=== PATIENT | female | born 1945 | race Hispanic/Latino ===

== ENCOUNTER → 2018-09-19 | Day surgery (SDC) | payer MEDICARE, OTHER ==
[~2018-09-19] MED LIST: ASPIR 8181 MG PO; ATORVASTATIN CA20 MG PO; CLOBETASOL PROP15 G1 TOP; COZAAR25 MG PO; FLUCONAZOLE100 MG PO; HUMALOG100 UNIT/3 SC; HYDROCORTISONE30 GM TOP; LANTUS SC; LEVOTHYROXINE175 MCG PO; LOSARTAN POTAS100 MG PO; METFORMIN HCL500 MG PO; MIDAZOLAM HCL 2 MG/2 ML VIAL ONE; NAPROXEN250 MG PO; NASONEX17 GM; NOVOLOG100 UNITS1 SC; OR PHACO EYE KIT ONE; PREOP PHACO EYE KIT ONE; RANITIDINE HCL150 MG PO; ZANTAC150 MG PO
--- OUTSIDE RECORDS SUMMARY | 2018-09-19 11:20 | XMS REPORT | Continuity of Care Document ---
Author Author [facility] Interface Address Unknown Phone Unavailable Problems Problem Status Onset Date Classification Date Reported Comments Source EVAL POV Active 07/10/2018 [facility] Z12.31 - ENCNTR SCREEN MAMMOGRAM FOR MA Active 05/26/2017 [facility] M79.604 - PAIN IN RIGHT LEG Active 01/14/2016 [facility] SCREENING Active 12/17/2015 [facility] M81.0 - AGE-RELATED OSTEOPOROSIS W/O C Active 12/09/2015 [facility] History of fall Resolved 12/09/2015 Problem 05/05/2018 [facility] UNK Active 02/17/2015 [facility] V10.05 Active 02/17/2015 [facility] 789.01 ABD PAIN Active 01/28/2015 [facility] OSTEOPOROSIS 733.00 Active 01/24/2015 [facility] Hypothyroidism<sup>2, 3</sup> Active 01/21/2015 Problem 05/05/2018 Data migrated from [employer] on 04/22/15. [facility] Hypothyroidism<sup>3, 4</sup> Active 01/21/2015 Problem 03/04/2018 Data migrated from [employer] on 04/22/15[facility] Osteoporosis<sup>5, 6</sup> Active 12/24/2014 Problem 05/05/2018 Data migrated from [employer] on 04/22/15. [facility] Osteoporosis<sup>6, 7</sup> Active 12/24/2014 Problem 03/04/2018 Data migrated from [employer] on 04/22/15. [facility]un, [facility] Obesity<sup>4</sup> Active 08/16/2014 Problem 05/05/2018 Data migrated from [employer] on 04/21/15. [facility] Obesity<sup>5</sup> Active 08/16/2014 Problem 03/04/2018 Data migrated from [employer] on 04/21/15. [facility] Discharge Diagnosis: insect bite-infected, abscess back 02/07/2014 02/09/2014 [facility] BACK PAIN Active 02/07/2014 [facility] 518.89 Active 01/23/2014 [facility] V76.10 Active 12/28/2013 [facility] Unsteady gait<sup>7</sup> Active 12/19/2013 Problem 05/05/2018 Data migrated from [employer] on 04/21/15. [facility] Unsteady gait<sup>8</sup> Active 12/19/2013 Problem 03/04/2018 Data migrated from [employer] on 04/21/15. [facility] LOW SUGAR Active 11/30/2013 [facility] Chronic kidney disease stage 3<sup>1</sup> Active 09/19/2013 Problem 03/04/2018 Data migrated from [employer] on 04/21/15. [facility] History of malignant neoplasm of colon<sup>1</sup> Resolved 06/06/2013 Problem 05/05/2018 Data migrated from [employer] on 04/21/15. [facility] History of malignant neoplasm of colon<sup>2</sup> Resolved 06/06/2013 Problem 03/04/2018 Data migrated from [employer] on 04/21/15. [facility] Varicose veins of lower extremity<sup>8</sup> Active 05/16/2013 Problem 05/05/2018 Data migrated from [employer] on 04/21/15. [facility] Varicose veins of lower extremity<sup>9</sup> Active 05/16/2013 Problem 03/04/2018 Data migrated from [employer] on 04/21/15. [facility] ROUTINE/MENOPAUSAL Active 02/01/2013 [facility] 794.31ABNORMAL EKG DR PULIDO WILL READ* LEXISCAN Active 07/21/2012 [facility] CECAL MASS Active 06/27/2012 [facility] ABDOMINAL PAIN Active 05/15/2012 [facility] ABD PAIN 787.07/793.4/285.9 Active 05/15/2012 [facility] ABD PAIN, CHEST PAIN, SHORTNESS OF BREATH Active 03/27/2012 [facility] OTHER Active 03/06/2012 [facility] Diabetes mellitus Active Problem 03/09/2015 [facility] Ex-smoker Active Problem 03/09/2015 [facility] Hypertension Active Problem 03/09/2015 [facility] SOB - Shortness of breath Active Problem 03/09/2015 [facility] Ex-smoker Active Problem 02/18/2013 [facility] Hypertension Active Problem 02/18/2013 [facility] SOB - Shortness of breath Active Problem 02/18/2013 [facility] Back pain Active Problem 03/09/2015 [facility] Cancer of colon<sup>1</sup> Active Problem 03/09/2015 1Previous history [facility] Neuropathy Active Problem 03/09/2015 [facility] Acute constipation Resolved Problem 06/23/2017 [facility] Screening for breast cancer Resolved Problem 06/23/2017 [facility] Ángela vaginitis Active Problem 06/23/2017 [facility] Leg cramps Active Problem 06/23/2017 [facility] Daytime somnolence Active Problem 06/23/2017 [facility] Hypercholesterolemia Active Problem 06/23/2017 [facility] Medicare annual wellness visit, subsequent Resolved Problem 06/23/2017 [facility] Pain of left leg Active Problem 12/18/2015 [facility] 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, uncontrolled, without macular edema, with retinopathy Active Problem 06/23/2017 [facility] Anemia Active Problem 05/05/2018 [facility] Benign hypertension with chronic kidney disease, stage III Active Problem 05/05/2018 [facility] Yeast vaginitis Active Problem 05/05/2018 [facility] Cataract Active Problem 05/05/2018 [facility] termination clerk current use of insulin Active Problem 05/05/2018 [facility] Hyperlipidemia Active Problem 05/05/2018 [facility] Left knee pain Active Problem 05/05/2018 [facility] Pulmonary nodule Active Problem 05/05/2018 [facility] Non-compliant patient Active Problem 05/05/2018 [facility] Peripheral edema Active Problem 05/05/2018 [facility] Sleep apnea Active Problem 05/05/2018 [facility] Type 2 diabetes mellitus with polyneuropathy Active Problem 05/05/2018 [facility] Type 2 diabetes mellitus with stage 3 chronic kidney disease Active Problem 05/05/2018 [facility] [place], [facility] Type 2 diabetes mellitus with hyperglycemia Active Problem 05/05/2018 [facility] Vitamin D deficiency Active Problem 05/05/2018 [facility] Bilateral cataracts Active Problem 06/23/2017 [facility] Chronic folliculitis Resolved Problem 06/23/2017 [facility] Pain and swelling of right lower leg Active Problem 06/23/2017 [facility] ABDMNAL PAIN UNSPCF SITE Active [facility] CHEST PAIN NOS Active [facility] SHORTNESS OF BREATH Active [facility] PNEUMONIA Active [facility] PNEUMONIA, ORGANISM NOS Active [facility] ABDMNAL PAIN GENERALIZED Active [facility] NONSP ABN FIND-GI TRACT Active [facility] ANEMIA NOS Active [facility] PERITONEAL DISORDER NEC Active [facility] PARAPLEGIA, UNSPECIFIED Active [facility] Medications Medication Details Route Status Patient Instructions Ordering Provider Order Date Source levothyroxine 175 mcg (0.175 mg) oral tablet 175 microgram=1 tab, PO, Daily, # 90 tab, 1 Refill(s), [facility] Active 05/01/2018 [facility] Metformin hydrochloride 1000 MG Oral Tablet 1,000 mg=1 tab, PO, BID, X 90 day, # 180 tab, 0 Refill(s), Pharmacy: [facility]/pharmacy #[id number] Active 04/27/2018 [facility] Insulin Glargine 100 UNT/ML Injectable Solution 75 unit, SUB-Q, QAM, # 3 mL, 5 Refill(s), Pharmacy: [facility]/pharmacy #[id number] Active 04/27/2018 [facility] atorvastatin 20 mg oral tablet See Instructions, TAKE ONE TABLET BY MOUTH AT BEDTIME, # 90 tab, 0 Refill(s), Pharmacy: [facility]/pharmacy #[id number] Active 04/27/2018 [facility] losartan 100 mg oral tablet 100 mg=1 tab, PO, Daily, # 90 tab, 0 Refill(s), Pharmacy: [facility]/pharmacy #[id number] Active 04/27/2018 [facility] levothyroxine 175 mcg (0.175 mg) oral tablet 175 microgram=1 tab, PO, Daily, # 90 tab, 0 Refill(s), Pharmacy: [facility]/pharmacy #[id number] Active 04/27/2018 [facility] Ranitidine 150 MG Oral Tablet See Instructions, TAKE ONE TABLET BY MOUTH DAILY, # 90 tab, 0 Refill(s), Pharmacy: [facility]/pharmacy #[id number] Active 04/27/2018 [facility] Dexcom G4 [place] System with Share Continuous Blood Glucose Monitor 1 ea, MISC, ONCE, # 1 ea, Insulin dependent, Does not use insulin pump, Last DM eval date 03/28/18, 0 Refill(s) Active 03/28/2018 [facility] naproxen 500 mg oral tablet 500 mg=1 tab, PO, BID, with food, X 14 day, # 60 tab, 1 Refill(s), [facility] Active 03/28/2018 [facility] fluconazole 150 mg oral tablet 150 mg=1 tab, PO, ONCE, # 1 tab, 1 Refill(s), [facility] Active 03/28/2018 [facility] Hydrocortisone 25 MG/ML Topical Cream 1 appl, TOP, BID, X 14 day, # 30 gm, 2 Refill(s), [facility]acy: [facility] No Longer Active 01/25/2018 [facility] Metformin hydrochloride 1000 MG Oral Tablet 1,000 mg=1 tab, PO, BID, X 90 day, # 180 tab, 1 Refill(s), [facility] Active 12/27/2017 [facility] losartan 100 mg oral tablet 100 mg=1 tab, PO, Daily, # 90 tab, 1 Refill(s), [facility] Active 12/27/2017 [facility] 3 ML Insulin Lispro 100 UNT/ML Pen Injector [Humalog] 15 units, SUB-Q, BID-Meals, # 3 mL, 5 Refill(s), [facility] Active 12/27/2017 [facility] Insulin Glargine 100 UNT/ML Injectable Solution 75 unit, SUB-Q, QAM, # 3 mL, 5 Refill(s), [facility] Active 12/27/2017 [facility] Cane 1 ea, MISC, ONCE, dispense one 3 or 4 point cane, # 1 ea, 0 Refill(s) Active 12/27/2017 [facility] DME Prescription See Instructions, MISC, ONCE, dispense shower rail with suction, # 1 unit, 0 Refill(s) Active 12/27/2017 [facility] Bath Seat/Shower Seat Misc/Other 1 ea, MISC, ONCE, dispense one shower chair, # 1 unit, 0 Refill(s) Active 12/27/2017 [facility] Ranitidine 150 MG Oral Tablet See Instructions, TAKE ONE TABLET BY MOUTH DAILY, # 90 tab, 1 Refill(s), [facility] Active 11/09/2017 [facility] losartan 50 mg oral tablet 50 mg=1 tab, PO, Daily, # 30 tab, 0 Refill(s) Active 03/06/2015 [facility] Sodium Chloride 0.154 MEQ/ML Injectable Solution 1,000 mL, Rate: 25 ml/hr, Infuse over: 40 hr, Route: IV, Dosing Weight 82.386 kg, Total Volume: 1,000, Start date: 03/06/15 8:08:00, Duration: 30 day, Stop date: 04/05/15 8:07:00 Inactive 03/06/2015 [facility] 3 ML Insulin Lispro 100 UNT/ML Prefilled Syringe [Humalog] 20 unit, SUB-Q, BID, # 3 mL, 0 Refill(s) Active 02/26/2015 [facility] 3 ML insulin detemir 100 UNT/ML Prefilled Syringe [Levemir] 30 unit, SUB-Q, Bedtime, # 3 ml, 0 Refill(s) Active 02/26/2015 [facility] spironolactone 50 mg oral tablet 25 mg=0.5 tab, PO, BID, # 60 tab, 0 Refill(s) Active 02/26/2015 [facility] atorvastatin 20 mg oral tablet 20 mg=1 tab, PO, Bedtime, # 30 tab, 0 Refill(s) Active 02/26/2015 [facility] baclofen 10 mg oral tablet 10 mg=1 tab, PO, BID, # 90 tab, 0 Refill(s) Active 02/26/2015 [facility] Ranitidine 150 MG Oral Tablet 150 mg=1 tab, PO, Daily, # 60 tab, 0 Refill(s) Active 02/26/2015 [facility] levothyroxine 137 mcg (0.137 mg) oral tablet 137 microgram=1 tab, PO, Daily, # 30 tab, 0 Refill(s) Active 02/26/2015 [facility] Metformin hydrochloride 1000 MG Oral Tablet 1,000 mg=1 tab, PO, BID, # 30 tab, 0 Refill(s) Active 02/26/2015 [facility] losartan 50 mg oral tablet 50 mg=1 tab, PO, Daily, # 30 tab, 0 Refill(s) Active 02/26/2015 [facility] tramadol hydrochloride 50 MG Oral Tablet 50 mg=1 tab, PO, Q6H, PRN Pain, # 40 tab, 0 Refill(s) Active 02/26/2015 [facility] tramadol hydrochloride 50 MG Oral Tablet [Ultram] 1 - 2 tabs, PO, Q4-6H, as needed for pain, # 20 tab, 0 Refill(s) Active 02/07/2014 [facility] Mupirocin 0.02 MG/MG Topical Ointment [Bactroban] 1 appl, TOP, TID, # 15 gm, 0 Refill(s) Active 02/07/2014 [facility] Sulfamethoxazole 800 MG / Trimethoprim 160 MG Oral Tablet [Bactrim] 1 tab, PO, BID, # 20 tab, 0 Refill(s) Active 02/07/2014 [facility] Lidocaine Hydrochloride 10 MG/ML Injectable Solution 10 ml, Route: SUB-Q, Drug Form: INJ, Dosing Weight 81.818, kg, ONCE, STAT, Start date: 02/07/14 16:28:00, Stop date: 02/07/14 16:28:00Preservative free. (Same as: Xylocaine MPF) Inactive 02/07/2014 [facility] Levemir 10 unit, 0.1 mL, Route: SUB-Q, Drug form: INJ, QAM, Dosing Weight 88.636, kg, Start date: 08/04/12 9:00:00, Duration: 30 day, Stop date: 09/02/12 9:00:00 SUB-Q No Longer Active [place] 08/04/2012 [facility] levothyroxine 125 microgram, 1 tab, Route: PO, Drug form: TAB, Q630AM, Dosing Weight 88.636, kg, Start date: 08/04/12 6:30:00, Duration: 30 day, Stop date: 09/02/12 6:30:00 PO No Longer Active [place] 08/04/2012 [facility] Levemir 15 unit, 0.15 mL, Route: SUB-Q, Drug form: INJ, QPM, Dosing Weight 88.636, kg, Start date: 08/03/12 17:00:00, Duration: 30 day, Stop date: 09/01/12 17:00:00 SUB-Q No Longer Active [place] 08/03/2012 [facility] Vicodin 5/500 oral tablet 1 tab, PO, Q4H, PRN, 40 btl, for pain, Substitution Allowed, Maintenance, TAB PO Active [facility] 08/03/2012 [facility] losartan 25 mg, 1 tab, Route: PO, Drug form: TAB, Daily, Dosing Weight 88.636, kg, Start date: 08/02/12 11:00:00, Duration: 30 day, Stop date: 09/01/12 9:00:00 PO No Longer Active [place] 08/02/2012 [facility] Dilaudid 1 mg, 1 mL, Route: IV, Drug form: SOLN, Q1H, Dosing Weight 88.636, kg, PRN as needed for pain, Start date: 08/02/12 9:04:00, Duration: 30 day, Stop date: 09/01/12 9:03:00 IV No Longer Active [facility] 08/02/2012 [facility] W[place] 5/325 oral tablet 1 tab, Route: PO, Drug Form: TAB, Dosing Weight 88.636, kg, Q4H, PRN Pain, Start date: 08/02/12 9:03:00, Duration: 30 day, Stop date: 09/01/12 9:02:00 PO No Longer Active [facility] 08/02/2012 [facility] Levemir 10 unit, 0.1 mL, Route: SUB-Q, Drug form: INJ, Q12H, Dosing Weight 88.636, kg, Start date: 08/02/12 9:00:00, Duration: 30 day, Stop date: 08/31/12 21:00:00 SUB-Q No Longer Active [place] 08/02/2012 [facility] acetaminophen-hydrocodone 325 mg-5 mg oral tablet 1 tab, Route: PO, Drug Form: TAB, Q4H, PRN Pain, Start date: 08/01/12 19:19:00, Duration: 30 day, Stop date: 08/31/12 19:18:00 PO No Longer Active [facility] 08/02/2012 [facility] Dextrose 50% in Water IV 50 mL, Route: IVP, Start date: 08/01/12 10:27:00, Duration: 30 day, Stop date: 08/31/12 10:26:00, PRN Blood Glucose Results IVP No Longer Active [facility] 08/01/2012 [facility] glucagon 1 mg, Route: IM, Drug form: PDR/INJ, PRN, PRN Blood Glucose Results, Start date: 08/01/12 10:27:00, Duration: 30 day, Stop date: 08/31/12 10:26:00 IM No Longer Active [facility] 08/01/2012 [facility] NovoLog FlexPen 12 unit, 0.12 mL, Route: SUB-Q, Drug form: SOLN, Before Meals & Bedtime, PRN Blood Glucose Results, Start date: 08/01/12 10:27:00, Duration: 30 day, Stop date: 08/31/12 10:26:00 SUB-Q No Longer Active [facility] 08/01/2012 [facility] NovoLog FlexPen 8 unit, 0.08 mL, Route: SUB-Q, Drug form: SOLN, Before Meals & Bedtime, PRN Blood Glucose Results, Start date: 08/01/12 10:26:00, Duration: 30 day, Stop date: 08/31/12 10:25:00 SUB-Q No Longer Active [facility] 08/01/2012 [facility] Entereg 12 mg, 1 cap, Route: PO, Drug form: CAP, BID, Dosing Weight 88.636, kg, Start date: 08/01/12 9:00:00, Duration: 14 doses or times, Stop date: 08/07/12 17:00:00 [facility] Lovenox 40 mg, 0.4 mL, Route: SUB-Q, Drug form: INJ, [id number], Dosing Weight 88.636, kg, Start date: 08/01/12 3:00:00, Duration: 30 day, Stop date: 08/30/12 3:00:00 [facility]-Q [facility] famotidine 20 mg, 2 mL, Route: IVP, Drug form: INJ, Q12H, Dosing Weight 88.636, kg, Start date: 07/31/12 21:00:00, Duration: 30 day, Stop date: 08/30/12 9:00:00 IVP No Longer Active [facility] 08/01/2012 [facility] Lactated Ringers Injection IV 1000 mL 1,000 mL, Rate: 50 ml/hr, Infuse over: 20 hr, Route: IV, Dosing Weight 88.636 kg, Total Volume: 1,000, Start date: 07/31/12 15:17:00, Duration: 30 day, Stop date: 08/30/12 15:16:00 IV No Longer Active [facility] 07/31/2012 [facility] naloxone 0.04 mg, Route: IVP, Q2MIN, Dosing Weight 88.636, kg, PRN Narcotic Reversal, Start date: 07/31/12 15:17:00, Duration: 8 doses or times, Stop date: Limited # of times IVP No Longer Active [facility] 07/31/2012 [facility] flumazenil 0.2 mg, 2 mL, Route: IVP, Drug form: INJ, PRN, Dosing Weight 88.636, kg, PRN Benzodiazepine Reversal, Initial dose, Start date: 07/31/12 15:17:00, Duration: 30 day, Stop date: 08/30/12 15:16:00 IVP No Longer Active [facility] 07/31/2012 [facility] hydrALAZINE 5 mg, 0.25 mL, Route: IVP, Drug form: INJ, Q5Min, Dosing Weight 88.636, kg, PRN Elevated BP, Start date: 07/31/12 15:17:00, Duration: 4 doses or times, Stop date: Limited # of times IVP No Longer Active [facility] 07/31/2012 [facility] labetalol 5 mg, 1 mL, Route: IVP, Drug form: INJ, Q5Min, Dosing Weight 88.636, kg, PRN Elevated BP, Start date: 07/31/12 15:17:00, Duration: 5 doses or times, Stop date: Limited # of times IVP No Longer Active [facility] 07/31/2012 [facility] ondansetron 4 mg, Route: IVP, ONCE, Dosing Weight 88.636, kg, PRN Nausea & Vomiting, Start date: 07/31/12 15:17:00 IVP No Longer Active [facility] 07/31/2012 [facility] Dextrose 50% Syringe 12.5 gm, 25 mL, Route: IVP, Drug Form: INJ, Dosing Weight 88.636, kg, PRN, PRN Blood Glucose Results, Start date: 07/31/12 15:14:00, Duration: 30 day, Stop date: 08/30/12 15:13:00 IVP No Longer Active [facility] 07/31/2012 [facility] glucagon 1 mg, Route: IM, Drug form: PDR/INJ, PRN, Dosing Weight 88.636, kg, PRN Blood Glucose Results, Start date: 07/31/12 15:14:00, Duration: 30 day, Stop date: 08/30/12 15:13:00 IM No Longer Active [facility] 07/31/2012 [facility] NS + KCL 20mEq/L 1000ml (Premix) 1000 mL 1,000 mL, Rate: 60 ml/hr, Infuse over: 16.7 hr, Route: IV, Dosing Weight 88.636 kg, Total Volume: 1,000, Start date: 07/31/12 15:10:00, Duration: 30 day, Stop date: 08/30/12 15:09:00 [facility] insulin aspart 2 unit, 0.02 mL, Route: SUB-Q, Drug form: SOLN, TID-Before Meals, Dosing Weight 88.636, kg, PRN Blood Glucose Results, Start date: 07/31/12 15:10:00, Duration: 30 day, Stop date: 08/30/12 15:09:00 SUB-Q No Longer Active [facility] 07/31/2012 [facility] hydromorphone 0.2 mg/mL ADULT NEUROPSYCHOLOGIST (6 mg/30 mL) INJ Syringe 6 mg 6 mg, 30 mL, Route: IV, ADULT NEUROPSYCHOLOGIST Dose: 0.2 mg, ADULT NEUROPSYCHOLOGIST Lockout: 10 minutes, Continuous Basal Rate: 0 mg, 4 Hour Limit (In MG): 6, Drug Form: INJ, Continuous, Pain, Start date: 07/31/12 15:10:00, Duration: 30 day, Stop date: 08/30/12 15:09:00 IV No Longer Active [facility] 07/31/2012 [facility] nalbuphine 2 mg, 0.1 mL, Route: IVP, Drug form: INJ, Q2H, Dosing Weight 88.636, kg, PRN Itching, Start date: 07/31/12 15:10:00, Duration: 5 doses or times, Stop date: Limited # of times IVP No Longer Active [facility] 07/31/2012 [facility] naloxone 0.04 mg, 0.04 mL, Route: IVP, Drug form: INJ, Q2MIN, Dosing Weight 88.636, kg, PRN Narcotic Reversal, Start date: 07/31/12 15:10:00, Duration: 30 day, Stop date: 08/30/12 15:09:00 IVP No Longer Active [facility] 07/31/2012 [facility] ondansetron 4 mg, 2 mL, Route: IVP, Drug form: INJ, Q6H, Dosing Weight 88.636, kg, PRN Nausea & Vomiting, Start date: 07/31/12 15:10:00, Duration: 30 day, Stop date: 08/30/12 15:09:00 IVP No Longer Active [facility] 07/31/2012 [facility] diphenhydrAMINE 25 mg, 1 tab, Route: PO, Drug form: TAB, Bedtime, Dosing Weight 88.636, kg, PRN Insomnia, Start date: 07/31/12 15:10:00, Duration: 30 day, Stop date: 08/30/12 15:09:00 PO No Longer Active [facility] 07/31/2012 [facility] acetaminophen 650 mg, 2 tab, Route: PO, Drug form: TAB, Q4H, Dosing Weight 88.636, kg, PRN Pain Score 1-3, Start date: 07/31/12 15:10:00, Duration: 30 day, Stop date: 08/30/12 15:09:00 PO No Longer Active [facility] 07/31/2012 [facility] Entereg 12 mg, 1 cap, Route: PO, Drug form: CAP, ONCALL, Dosing Weight 88.636, kg, Start date: 07/31/12 11:00:00 PO No Longer Active [facility] 07/31/2012 [facility] Entereg 12 mg, 1 cap, Route: PO, Drug form: CAP, ONCE, Start date: 07/31/12 11:00:00, Stop date: 07/31/12 11:00:00 PO No Longer Active [facility] 07/31/2012 [facility] Invanz 1 gm, Route: IVPB, ONCE, Dosing Weight 88.636, kg, Start date: 07/31/12 10:47:00, Stop date: 07/31/12 10:47:00 IVPB No Longer Active [facility] 07/31/2012 [facility] Lactated Ringers Injection IV 1,000 mL 1,000 mL, Rate: 25 ml/hr, Infuse over: 40 hr, Route: IV, kg, Total Volume: 1,000, Start date: 07/31/12 10:46:00, Duration: 30 day, Stop date: 08/30/12 10:45:00 IV No Longer Active So 07/31/2012 [facility] lovastatin Substitution Allowed Active 07/28/2012 [facility] Sodium Chloride 0.45% IV 1,000 mL 1,000 mL, Rate: 40 ml/hr, Infuse over: 25 hr, Route: IV, Dosing Weight 85.455 kg, Total Volume: 1,000, Start date: 05/22/12 10:56:00, Duration: 30 day, Stop date: 06/21/12 10:55:00 IV No Longer Active [facility] 05/22/2012 [facility] aspirin 325 mg tablet 325 mg, 1 tab, PO, Daily, 30 tab, Substitution Allowed, TAB PO Active 05/22/2012 [facility] ranitidine 150 mg oral tablet 150 mg, 1 tab, PO, Daily, 60 tab, Substitution Allowed PO Active 05/20/2012 [facility] losartan 50 mg oral tablet 50 mg, 1 tab, PO, Daily, 30 tab, Substitution Allowed, TAB PO Active 05/20/2012 [facility] spironolactone 25 mg oral tablet 25 mg, 1 tab, PO, Daily, 180 tab, Substitution Allowed, TAB PO Active 05/20/2012 [facility] levothyroxine 125 mcg (0.125 mg) oral tablet 125 microgram, 1 tab, PO, Daily, 30 tab, Substitution Allowed, TAB PO Active 05/20/2012 [facility] gabapentin 300 mg oral capsule 300 mg, 1 cap, PO, BID, 90 cap, Substitution Allowed PO Active 05/20/2012 [facility] metFORmin 1000 mg oral tablet 1,000 mg, 1 tab, PO, BID, 30 tab, Substitution Allowed PO Active 05/20/2012 [facility] NovoLog 100 units/mL subcutaneous solution 40 unit, SUB- Q, TID-Before Meals, 10 ml, Substitution Allowed, SOLN SUB- Q Active 05/20/2012 [facility] Levemir 100 units/mL subcutaneous solution 80 unit, SUB- Q, BID, 10 ml, Substitution Allowed, SOLN SUB-Q Active 05/20/2012 [facility] albuterol CFC free 90 mcg/inh inhalation aerosol with adapter 2 puff, INHALATION, QID, PRN, 17 gm, Wheezing, Substitution Allowed, Maintenance, AERO INHALATION Active [facility] 03/07/2012 [facility] Azithromycin 5 Day Dose Pack 250 mg oral tablet See Instructions, 1 pkg, Substitution Allowed, as directed on package labelingas directed on package labeling Active [facility] 03/07/2012 [facility] Rocephin 1 g/ NS (NaCl 0.9%) 50 mL IV solution 1 gm, Route: IVPB, Drug form: PDR/INJ, ONCE, Priority: STAT, Start date: 03/06/12 18:33:00, Stop date: 03/06/12 18:33:00 IVPB No Longer Active [facility] 03/06/2012 [facility] acetaminophen 650 mg, 20.3 mL, Route: PO, Drug form: LIQ, ONCE, Priority: STAT, Start date: 03/06/12 15:59:00, Stop date: 03/06/12 15:59:00 PO No Longer Active [facility] 03/06/2012 [facility] Sodium Chloride 0.9% (Bolus) IV 500 mL 500 mL, Rate: 1,000 ml/hr, Infuse over: 0.5 hr, Route: IV, Dosing Weight 104.5 kg, Total Volume: 500, Priority: STAT, Start date: 03/06/12 15:32:00, Duration: 1 doses or times, Stop date: 03/06/12 16:01:00, Bolus DoseBolus Dose IV No Longer Active Vital 03/06/2012 [facility] Insulin regular 10 unit, 0.1 mL, Route: IVP, Drug form: INJ, ONCE, Priority: STAT, Start date: 04/16/12 15:30:00, Stop date: 03/06/12 15:30:00 IVP No Longer Active Vital 03/06/2012 [facility] Allergies, Adverse Reactions, Alerts Substance Category Reaction Severity Reaction type Status Date Reported Comments Source Immunizations Immunization Date Given Site Status Last Updated Comments Source pneumococcal 13-valent vaccine<sup>1</sup> 12/27/2017 Left Deltoid completed [facility]e Result Comment: Patient waited 15 minutes, no reaction noted. Medical [facility] influenza virus vaccine, inactivated<sup>2</sup> 09/26/2017 Left Deltoid completed Auguste Result Comment: Patient waited 15 minutes, no reaction noted. Medical [facility] influenza virus vaccine, inactivated 09/05/2015 Left deltoid completed Andrade CARL Teea,[facility] influenza virus vaccine, inactivated<sup>1</sup> 08/16/2014 Right Deltoid completed GE Result Comment: fluzone high dose [[id number]]. Migrated from OBS ; Data migrated from [employer] on 12/23/2015. CARL Yun influenza virus vaccine, inactivated<sup>3</sup> 08/16/2014 Right Deltoid completed GE Result Comment: fluzone high dose [[id number]]. Migrated from OBS ; Data migrated from [employer] on 12/23/2015. Medical [facility] tetanus-diphtheria toxoids 02/07/2014 Right deltoid completed [facility], CARL Teea tetanus-diphtheria toxoids 02/07/2014 Right deltoid completed [facility], CARL Yun pneumococcal 23-valent vaccine<sup>2</sup> 09/20/2013 Right Deltoid completed GE Result Comment: pneumovax 23 [cvx33]. Migrated from OBS VIS: Pneumovax 23: 08-26-09 ; Data migrated from [employer] on 12/23/2015. [facility]arlan [place] pneumococcal 23-valent vaccine<sup>4</sup> 09/20/2013 Right Deltoid completed GE Result Comment: pneumovax 23 [cvx33]. Migrated from OBS VIS: Pneumovax 23: 08-26-09 ; Data migrated from [employer] on 12/23/2015. Medical Group Results Order Name Results Value Reference Range Date Interpretation Comments Source Bone Density DXA [employer] MA Bone Density DXA [employer] MA - Bone Density DXA [employer] MA BONE DENSITY EVALUATION: 06/20/2017 CLINICAL DATA: Post menopausal. RISK FACTORS: . COMPARISON: 12/15/2015 Right hip using a Hologic unit from [facility] with reported normal fracture risk, BMD of 1.062g/cm2, T-score of 1.00 and Z-score of 2.40. 12/15/2015 Left hip using a Hologic unit from [facility] with reported normal fracture risk, BMD of 1.021g/cm2, T-score of 0.60 and Z-score of 2.10. 12/15/2015 AP L1-L3 region of spine using a Hologic unit from [facility] with reported normal fracture risk, BMD of 1.179g/cm2, T-score of 1.50 and Z-score of 3.50. FINDINGS: Bone density evaluation was performed 06/20/2017 on the AP L1-L3 region of spine using a Hologic unit. The BMD average for the exam is 1.232 g/cm2. The T-score is 1.90 and the Z-score is 4.00. Since the previous similar exam of 12/15/2015, there has been a +0.053 or +4.5% change in the BMD value which represents a significant interval change in bone density. This matches the World Health Organization's criteria for normal bone density and places the patient within normal limits of fracture risk. An additional bone density evaluation was performed 06/20/2017 on the right femur neck using a Hologic unit. The BMD average for the exam is 0.944 g/cm2. The T-score is 0.90 and the Z-score is 2.70. This matches the World Health Organization's criteria for normal bone density and places the patient within normal limits of fracture risk. An additional bone density evaluation was performed 06/20/2017 on the right hip using a Hologic unit. The BMD average for the exam is 1.075 g/cm2. The T-score is 1.10 and the Z-score is 2.60. Since the previous similar exam of 12/15/2015, there has been a +0.013 or +1.2% change in the BMD value which represents no significant interval change in bone density. This matches the World Health Organization's criteria for normal bone density and places the patient within normal limits of fracture risk. An additional bone density evaluation was performed 06/20/2017 on the left femur neck using a Hologic unit. The BMD average for the exam is 0.920 g/cm2. The T- score is 0.60 and the Z-score is 2.50. This matches the World Health Organization's criteria for normal bone density and places the patient within normal limits of fracture risk. An additional bone density evaluation was performed 06/20/2017 on the left hip using a Hologic unit. The BMD average for the exam is 1.045 g/cm2. The T-score is 0.80 and the Z-score is 2.40. Since the previous similar exam of 12/15/2015, there has been a +0.024 or +2.4% change in the BMD value which represents no significant interval change in bone density. This matches the World Health Organization's criteria for normal bone density and places the patient within normal limits of fracture risk. L4 was excluded from the calculations due to degenerative changes. IMPRESSION: BONE DENSITY WITHIN NORMAL LIMITS Patient is at normal risk for fracture. Professional services are provided by the [facility] M[facility] Manuel Division of Diagnostic Imaging. This exam was dictated and interpreted by [address] [place] [address]. Dr. Wayne José M.D. eoc/:06/21/2017 09:15:57 Lieutenant/Deputy: Ladan CASTANON(Jm)(Kathleen), [facility] 06/20/2017 - - Read by: Wayne José MD Dictated Date/time: 06/21/17 09:15 Electronically Signed by: Wayne José MD 06/21/17 09:15 FINAL REPORT [facility] Breast Mammo Scrn DARIUSZ incl CAD MA Breast Mammo Scrn DARIUSZ incl CAD MA - BREAST MAMMO SCRN DARIUSZ INCL CAD MA BILATERAL DIGITAL SCREENING MAMMOGRAM WITH CAD: 06/20/2017 CLINICAL: Encounter For Screening Mammogram For Malignant Neoplasm Of Breast/Z12.31. Current study was evaluated with a Computer Aided Detection (CAD) system. Comparison is made to exams dated: 02/16/2013 mammogram, 01/29/2011 mammogram - [facility] and 09/12/2007 mammogram. The tissue of both breasts is almost entirely fat. There are benign calcifications in both breasts. No significant masses, calcifications, or other findings are seen in either breast. There has been no significant interval change. IMPRESSION: BENIGN There is no mammographic evidence of malignancy. A 1 year screening mammogram is recommended. Professional services are provided by the [facility] Division of Diagnostic Imaging. Mirna Quick M.D. ks/penrad:06/21/2017 08:42:04 Lieutenant/Deputy: Fabiola Urbina RT(R)(M), [facility] This exam was dictated and interpreted by [address] [place] [id number]. letter sent: Normal exam Mammogram BI-RADS: 2 Benign 06/20/2017 - - Read by: Mirna Quikc MD Dictated Date/time: 06/21/17 08:42 Electronically Signed by: Mirna Quick MD 06/21/17 08:42 FINAL REPORT CARL Yun Ext Lower Venous Doppler Unilat US Ext Lower Venous Doppler Unilat US Exam: Right lower extremity Doppler venous ultrasound. Reason for Exam: M79.604 Rt Leg Pain Comparison Exam: Report from right lower extremity ultrasound 01/29/2011 Discussion: Real-time grayscale, color Doppler imaging, and spectral waveform analysis was performed of the right lower extremity deep venous system. There are no filling defects or lack of compressibility seen within the deep venous system to suggest DVT. The waveforms are within normal limits and respond appropriately to augmentation. Impression: 1. Negative right lower extremity Doppler venous ultrasound for DVT. 01/23/2016 - - Read by: Christophe Strong MD Dictated Date/time: 01/23/16 14:48 Electronically Signed by: Christophe Strong MD 01/23/16 14:55 FINAL REPORT CARL Yun Tibia fibula series DX Tibia fibula series DX Right tibia and fibula x-ray series 2 views Clinical History: 70-year-old female status post trauma to the right tibia and fibula and pain. Comparison: None. Right tibia and fibula appear intact. There is no fracture or cortical disruption. Segments of the knee and ankle joints visualized are normal. The proximal and distal tibiofibular joints are unremarkable. Impression: Normal right tibia and fibula x-ray series. 12/15/2015 - - Read by: Levi Bright MD Dictated Date/time: 12/15/15 12:51 Electronically Signed by: Levi Bright 12/15/15 13:32 FINAL REPORT CARL Yun Bone Density DXA Dual [employer] MA Bone Density DXA [employer] MA - Bone Density DXA [employer] MA BONE DENSITY EVALUATION: 12/15/2015 CLINICAL DATA: Post menopausal. FINDINGS: Bone density evaluation was performed 12/15/2015 on the AP L1-L3 region of spine using a Hologic unit. The BMD average for the exam is 1.179 g/cm2. The T-score is 1.50 and the Z-score is 3.50. This matches the World Health Organization's criteria for normal bone density and places the patient within normal limits of fracture risk. An additional bone density evaluation was performed 12/15/2015 on the right femur neck using a Hologic unit. The BMD average for the exam is 0.869 g/cm2. The T-score is 0.20 and the Z-score is 1.90. This matches the World Health Organization's criteria for normal bone density and places the patient within normal limits of fracture risk. An additional bone density evaluation was performed 12/15/2015 on the right hip using a Hologic unit. The BMD average for the exam is 1.062 g/cm2. The T-score is 1.00 and the Z-score is 2.40. This matches the World Health Organization's criteria for normal bone density and places the patient within normal limits of fracture risk. An additional bone density evaluation was performed 12/15/2015 on the left femur neck using a Hologic unit. The BMD average for the exam is 0.918 g/cm2. The T- score is 0.60 and the Z-score is 2.40. This matches the World Health Organization's criteria for normal bone density and places the patient within normal limits of fracture risk. An additional bone density evaluation was performed 12/15/2015 on the left hip using a Hologic unit. The BMD average for the exam is 1.021 g/cm2. The T-score is 0.60 and the Z-score is 2.10. This matches the World Health Organization's criteria for normal bone density and places the patient within normal limits of fracture risk. IMPRESSION: BONE DENSITY WITHIN NORMAL LIMITS Patient is at normal risk for fracture. This exam was dictated and interpreted by [id number] for JEANNETTE Yun. Ayaz Johnson M.D., cm/dona:12/15/2015 15:29:11 Lieutenant/Deputy: Fabiola QURESHI (R)), [facility] 12/15/2015 - - Read by: Wilson Ross MD Dictated Date/time: 12/15/15 15:29 Electronically Signed by: Wilson Ross MD 12/15/15 15:29 FINAL REPORT CARL Yun CHEM PANEL eGFR 39 mL/min/1.73m2 02/26/2015 1Result Comment: The eGFR is calculated using the CKD-EPI formula. In most young, healthy individuals the eGFR will be >90 mL/min/1.73m2. The eGFR declines with age. An eGFR of 60-89 may be normal in some populations, particularly the elderly, for whom the CKD-EPI formula has not been extensively validated. Use of the eGFR is not recommended in the following populations: Individuals with unstable creatinine concentrations, including patients and those with serious co-morbid conditions. Patients with extremes in muscle mass or diet. The data above are obtained from the National Kidney Disease Education Program (NKDEP) which additionally recommends that when the eGFR is used in patients with extremes of body mass index for purposes of drug dosing, the eGFR should be multiplied by the estimated BMI. [facility] CHEM PANEL CO2 28 meq/L 24 - 32 02/26/2015 [facility] CHEM PANEL Chloride Lvl 104 meq/L 95 - 109 02/26/2015 [facility] CHEM PANEL Calcium Lvl 9.0 mg/dL 8.5 - 10.5 02/26/2015 [facility] CHEM PANEL AGAP 9.8 meq/L 10.0 - 20.0 02/26/2015 [facility] CHEM PANEL Glucose Lvl 137 mg/dL 70 - 99 02/26/2015 2Interpretive Data: Adult reference range values reflect the clinical guidelines of the [place] [employer]. [facility] CHEM PANEL BUN 25 mg/dL 7 - 22 02/26/2015 [facility] CHEM PANEL Creatinine Lvl 1.4 mg/dL 0.5 - 1.4 02/26/2015 [facility] CHEM PANEL Sodium Lvl 137 meq/L 135 - 145 02/26/2015 [facility] CHEM PANEL Potassium Lvl 4.8 meq/L 3.5 - 5.1 02/26/2015 [facility] Abdomen w/wo IV contrast CT Abdomen w/wo IV contrast CT EXAM: CT ABDOMEN WITH AND WITHOUT IV CONTRAST DATE: Jan 30, 2015 10:39:51 AM CLINICAL INDICATIONS: RUQ; LLQ pain TECHNIQUE: Multiple helical of abdomen after the administration of intravenous and oral contrast. Axial, sagittal and coronal reformats are provided. Precontrast and Delayed images through the abdomen were acquired. COMPARISON: CT abdomen pelvis 04/01/2012.. FINDINGS: Bibasilar groundglass opacities are present, likely representing subsegmental atelectasis.. No pleural effusion is seen. The heart is mildly enlarged. The liver, bilateral adrenal glands, and bilateral kidneys are within normal limits.. The gallbladder is absent. A small calcified splenic granuloma is seen. Pancreatic atrophy is seen. No lymphadenopathy is seen. No free air or fluid is identified.. Bowel anastomotic staple line is seen in the right lower abdomen. The imaged large and small bowel are normal in caliber. No osseous destructive lesions are seen. IMPRESSION: 1. No acute intra-abdominal abnormality seen 2. Cholecystectomy. 3. Small calcified splenic granuloma. 4. Bowel anastomotic staple line seen in the right lower abdomen. SL: 14 01/30/2015 - - Read by: Neto Nj MD Dictated Date/time: 01/30/15 13:52 Electronically Signed by: Neto Nj MD 01/30/15 13:59 FINAL REPORT [facility] Chest w contrast CT Chest w contrast CT CT THORAX WITH IV CONTRAST HISTORY: Pulmonary nodule. COMPARISON: 01/23/2013 and 04/01/2012. FINDINGS: The initial small pleural-based nodule or mass in the right upper lobe from 04/01/2012 is completely resolved. The very faint tiny irregular nodular density in the region of the right minor fissure remains unchanged from 2012, benign. Lungs demonstrate very mild patchy groundglass opacity in the lung bases which may represent atelectasis or possibly mild pulmonary edema. No suspicious pulmonary nodule is seen. No pulmonary mass. No pleural effusion. No pneumothorax. Mild cardiomegaly. Periportal and cardiomegaly. Mild aortic and coronary calcification. No pericardial effusion. No mediastinal adenopathy. Visualized portion of the upper abdominal contents reveals cholecystectomy and splenomegaly. Spleen is incompletely visualized but has increased in size since the most recent prior exam and measures up to 13.5 cm in length. No aggressive osseous lesion. IMPRESSION: 1. Previously described right lung nodular densities have either resolved or shows stability and features compatible with benign nodule. 2. No suspicious pulmonary nodule. 3. Very mild patchy ground glass opacity lung bases may represent atelectasis or mild pulmonary edema. 4. Borderline cardiomegaly and mild atherosclerosis. 5. Splenomegaly, new since the most recent prior exam. SL: 17 01/29/2014 - - Read by: Bo Zamudio Dictated Date/time: 01/29/14 16:43 Electronically Signed by: Bo Zamudio MD 01/29/14 16:54 FINAL REPORT [facility] BEDSIDE GLUCOSE TESTING Glucose POC 181 mg/dL 70 - 99 11/30/2013 [place] 1Interpretive Data: Upper Reportable Limit: 200 mg/dL. [facility] BEDSIDE GLUCOSE TESTING Gluc POC Lifscn 237 mg/dL 70 - 99 08/03/2012 [place] 1Interpretive Data: Upper Reportable Limit: 200 mg/dL. [facility] BEDSIDE GLUCOSE TESTING Comment1 Assess patient 08/03/2012 NA [facility] BEDSIDE GLUCOSE TESTING Comment1 Assess patient 08/03/2012 NA [facility] BEDSIDE GLUCOSE TESTING Gluc POC Lifscn 228 mg/dL 70 - 99 08/03/2012 [place] 2Interpretive Data: Upper Reportable Limit: 200 mg/dL. [facility] BEDSIDE GLUCOSE TESTING Gluc POC Lifscn 178 mg/dL 70 - 99 08/03/2012 [place] 3Interpretive Data: Upper Reportable Limit: 200 mg/dL. [facility] BEDSIDE GLUCOSE TESTING Comment1 Notify CHRISTINA/ 08/02/2012 NA [facility] CHEMISTRY Magnesium Lvl 1.1 mg/dL 1.8 - 2.4 08/01/2012 LOW [facility] CHEMISTRY CO2 25 meq/L 24 - 32 08/01/2012 Normal [facility] CHEMISTRY Chloride Lvl 102 meq/L 95 - 109 08/01/2012 Normal [facility] CHEMISTRY Creatinine Lvl 0.8 mg/dL 0.5 - 1.4 08/01/2012 Normal [facility] CHEMISTRY Potassium Lvl 4.7 meq/L 3.5 - 5.1 08/01/2012 Normal [facility] CHEMISTRY Sodium Lvl 137 meq/L 135 - 145 08/01/2012 Normal [facility] CHEMISTRY Calcium Lvl 8.1 mg/dL 8.5 - 10.5 08/01/2012 LOW [facility] CHEMISTRY AGAP 14.7 meq/L 10.0 - 20.0 08/01/2012 Normal [facility] CHEMISTRY Glucose Lvl 219 mg/dL 70 - 99 08/01/2012 [place] 4Interpretive Data: Adult reference range values reflect the clinical guidelines of the [place] [employer]. [facility] CHEMISTRY BUN 11 mg/dL 7 - 22 08/01/2012 Normal [facility] CHEMISTRY Phosphorus 2.8 mg/dL 2.5 - 4.5 08/01/2012 Normal [facility] HEMATOLOGY Hgb 9.9 g/dL 12.0 - 16.0 08/01/2012 LOW [facility] HEMATOLOGY Hct 29.7 % 36.0 - 48.0 08/01/2012 LOW [facility] BLOOD BANK RESULTS Antibody Scrn Negative (07/28/2012 09:30:00) 07/28/2012 Normal [facility] BLOOD BANK RESULTS ABO/Rh B NEG 07/28/2012 Unknown [facility] CHEMISTRY AGAP 16.6 meq/L 10.0 - 20.0 07/28/2012 Normal [facility] CHEMISTRY B/C Ratio 18 6 - 25 07/28/2012 Normal [facility] CHEMISTRY Globulin 3.1 g/dL 2.0 - 4.0 07/28/2012 Normal [facility] CHEMISTRY A/G Ratio 1.3 0.7 - 1.6 07/28/2012 Normal [facility] CHEMISTRY Calcium Lvl 9.0 mg/dL 8.5 - 10.5 07/28/2012 Normal [facility] CHEMISTRY CO2 23 meq/L 24 - 32 07/28/2012 LOW [facility] CHEMISTRY Albumin Lvl 3.9 g/dL 3.5 - 5.0 07/28/2012 Normal [facility] CHEMISTRY Potassium Lvl 4.6 meq/L 3.5 - 5.1 07/28/2012 Normal [facility] CHEMISTRY Sodium Lvl 137 meq/L 135 - 145 07/28/2012 Normal [facility] CHEMISTRY Chloride Lvl 102 meq/L 95 - 109 07/28/2012 Normal [facility] CHEMISTRY BUN 14 mg/dL 7 - 22 07/28/2012 Normal [facility] CHEMISTRY Creatinine Lvl 0.8 mg/dL 0.5 - 1.4 07/28/2012 Normal [facility] CHEMISTRY Glucose Lvl 195 mg/dL 70 - 99 07/28/2012 [place] 5Interpretive Data: Adult reference range values reflect the clinical guidelines of the [place] [employer]. [facility] CHEMISTRY Total Protein 7.0 g/dL 6.4 - 8.4 07/28/2012 Normal [facility] CHEMISTRY AST 12 unit/L 0 - 37 07/28/2012 Normal [facility] CHEMISTRY ALT 21 unit/L 0 - 65 07/28/2012 Normal [facility] CHEMISTRY Alk Phos 67 unit/L 39 - 136 07/28/2012 Normal [facility] CHEMISTRY Bili Total 0.3 mg/dL 0.2 - 1.3 07/28/2012 Normal [facility] HEMATOLOGY PT 13.9 s 12.0 - 14.7 07/28/2012 Normal [facility] HEMATOLOGY INR 1.05 0.85 - 1.17 07/28/2012 Normal 6Interpretive Data: RECOMMENDED RANGES FOR PROTIME INR: 2.0-3.0 for most medical and surgical thromboembolic states. 2.5-3.5 for artificial heart valves and recurrent embolism. INR SHOULD BE USED ONLY FOR PATIENTS ON STABLE ANTICOAGULANT THERAPY. [facility] HEMATOLOGY PTT 30.6 s 22.9 - 35.8 07/28/2012 Normal 7Interpretive Data: Heparin Therapeutic Range: 57 - 92 [facility] MCH 29.2 pg 27.0 - 31.0 07/28/2012 Normal [facility] Hct 34.7 % 36.0 - 48.0 07/28/2012 LOW [facility] MCV 89.4 fL 81.0 - 99.0 07/28/2012 Normal [facility] HEMATOLOGY RBC 3.88 M/CMM 4.20 - 5.40 07/28/2012 LOW [facility] Hgb 11.3 g/dL 12.0 - 16.0 07/28/2012 LOW [facility] MCHC 32.6 g/dL 32.0 - 36.0 07/28/2012 Normal [facility] HEMATOLOGY Platelet 207 K/CMM 133 - 450 07/28/2012 Normal [facility] HEMATOLOGY RDW 15.4 % 11.5 - 14.5 07/28/2012 HI [facility] HEMATOLOGY MPV 8.6 fL 7.4 - 10.4 07/28/2012 Normal [facility] HEMATOLOGY WBC 7.7 K/CMM 3.7 - 10.4 07/28/2012 Normal [facility] HEMATOLOGY Basophils # 0.0 K/CMM 0.0 - 0.2 07/28/2012 Normal [facility] HEMATOLOGY Eosinophils # 0.1 K/CMM 0.0 - 0.5 07/28/2012 Normal [facility] HEMATOLOGY Monocytes # 0.4 K/CMM 0.0 - 0.8 07/28/2012 Normal [facility] HEMATOLOGY Lymphocytes # 2.5 K/CMM 1.0 - 5.5 07/28/2012 Normal [facility] HEMATOLOGY Segs 61.0 % 45.0 - 75.0 07/28/2012 Normal [facility] HEMATOLOGY Segs-Bands # 4.7 K/CMM 1.5 - 8.1 07/28/2012 Normal [facility] HEMATOLOGY Eosinophils 1.9 % 0.0 - 4.0 07/28/2012 Normal [facility] HEMATOLOGY Basophils 0.2 % 0.0 - 1.0 07/28/2012 Normal [facility] HEMATOLOGY Lymphocytes 32.3 % 20.0 - 40.0 07/28/2012 Normal [facility] HEMATOLOGY Monocytes 4.6 % 2.0 - 12.0 07/28/2012 Normal [facility] URINALYSIS UA Urobilinogen <=1.0 mg/dL
*NA*
(07/28/2012 08:25:00) <sup> </sup> 0.1 - 1.0 07/28/2012 NA [facility] URINALYSIS UA Color Ltyellow 07/28/2012 NA [facility] URINALYSIS UA RBC null 0 - 2 07/28/2012 Normal [facility] URINALYSIS UA Bacteria Occasional /HPF *NA* (07/28/2012 08:25:00) None Seen 07/28/2012 [facility] URINALYSIS UA Blood Negative (07/28/2012 08:25:00) Negative 07/28/2012 Normal [facility] URINALYSIS UA Bili Negative *NA* (07/28/2012 08:25:00) Negative 07/28/2012 [facility] URINALYSIS UA WBC null 0 - 5 07/28/2012 Normal [facility] URINALYSIS UA Sq Epi Occasional /LPF *NA* (07/28/2012 08:25:00) Few 07/28/2012 [facility] URINALYSIS UA Leuk Est Negative (07/28/2012 08:25:00) Negative 07/28/2012 Normal [facility] URINALYSIS UA Nitrite Negative (07/28/2012 08:25:00) Negative 07/28/2012 Normal [facility] URINALYSIS UA Turbidity Clear (07/28/2012 08:25:00) Clear 07/28/2012 Normal [facility] URINALYSIS UA pH 5.0 5.0 - 8.0 07/28/2012 Normal [facility] URINALYSIS UA Ketones Negative mg/dL *NA* (07/28/2012 08:25:00) Negative 07/28/2012 NA [facility] URINALYSIS UA Protein Negative mg/dL (07/28/2012 08:25:00) Negative 07/28/2012 Normal [facility] URINALYSIS UA Glucose Negative mg/dL *NA* (07/28/2012 08:25:00) Negative 07/28/2012 NA [facility] URINALYSIS UA Spec Grav 1.008 <=1.030 07/28/2012 Normal [facility] BEDSIDE GLUCOSE TESTING Comment1 Notify CHRISTINA/ 03/06/2012 NA [facility] BEDSIDE GLUCOSE TESTING Gluc POC Lifscn 295 mg/dL 70 - 99 03/06/2012 [place] 1Interpretive Data: Upper Reportable Limit: 200 mg/dL. [facility] URINALYSIS UA Bili Negative (03/06/2012 15:40:00) Negative 03/06/2012 Normal [facility] URINALYSIS UA Sq Epi Moderate /LPF *ABN* (03/06/2012 15:40:00) Few 03/06/2012 ABN [facility] URINALYSIS UA WBC 0-2 /HPF (03/06/2012 15:40:00) None Seen 03/06/2012 Normal [facility] URINALYSIS UA Turbidity Clear (03/06/2012 15:40:00) Clear 03/06/2012 [facility] URINALYSIS UA Spec Grav >=1.030 *ABN* (03/06/2012 15:40:00) <=1.030 03/06/2012 ABN [facility] URINALYSIS UA Protein 30 mg/dL *ABN* (03/06/2012 15:40:00) Negative 03/06/2012 [facility]N [facility] URINALYSIS UA pH 5.0 5.0 - 8.0 03/06/2012 Normal [facility] URINALYSIS UA Glucose >=1000 mg/dL *ABN* (03/06/2012 15:40:00) Negative 03/06/2012 [facility] URINALYSIS UA Ketones 15 mg/dL *ABN* (03/06/2012 15:40:00) Negative 03/06/2012 [facility]N [facility] URINALYSIS UA Bacteria Occasional /HPF (03/06/2012 15:40:00) None Seen 03/06/2012 Normal [facility] URINALYSIS UA RBC None Seen (03/06/2012 15:40:00) 0 - 2 03/06/2012 Normal [facility] URINALYSIS UA Blood Negative (03/06/2012 15:40:00) Negative 03/06/2012 Normal [facility] URINALYSIS UA Urobilinogen 0.2 EU/dL 0.1 - 1.0 03/06/2012 Normal [facility] URINALYSIS UA Leuk Est Negative (03/06/2012 15:40:00) Negative 03/06/2012 Normal [facility] URINALYSIS UA Nitrite Negative (03/06/2012 15:40:00) Negative 03/06/2012 Normal [facility] URINALYSIS Micro? Performed (03/06/2012 15:40:00) 03/06/2012 Normal [facility] URINALYSIS UA Color Yellow *NA* (03/06/2012 15:40:00) Yellow 03/06/2012 NA [facility] Microbiology Culture: Urine 03/06/2012 [facility] CHEMISTRY Lipase Lvl 89 U/L 73 - 393 03/06/2012 Normal [facility] CHEMISTRY Amylase Lvl 34 U/L 25 - 115 03/06/2012 Normal [facility] CHEMISTRY A/G Ratio 1.1 0.7 - 1.6 03/06/2012 Normal [facility] CHEMISTRY Globulin 3.2 g/dL 2.0 - 4.0 03/06/2012 Normal [facility] CHEMISTRY B/C Ratio 14 6 - 25 03/06/2012 Normal [facility] CHEMISTRY AGAP 17.4 meq/L 10.0 - 20.0 03/06/2012 Normal [facility] CHEMISTRY AST 13 U/L 0 - 37 03/06/2012 Normal [facility] CHEMISTRY Bili Total 0.7 mg/dL 0.2 - 1.3 03/06/2012 Normal [facility] CHEMISTRY Alk Phos 53 U/L 39 - 136 03/06/2012 Normal [facility] CHEMISTRY ALT 22 U/L 0 - 65 03/06/2012 Normal [facility] CHEMISTRY Albumin Lvl 3.4 g/dL 3.5 - 5.0 03/06/2012 LOW [facility] CHEMISTRY Total Protein 6.6 g/dL 6.4 - 8.4 03/06/2012 Normal [facility] CHEMISTRY Calcium Lvl 8.4 mg/dL 8.5 - 10.5 03/06/2012 LOW [facility] CHEMISTRY CO2 20 meq/L 24 - 32 03/06/2012 LOW [facility] CHEMISTRY Chloride Lvl 101 meq/L 95 - 109 03/06/2012 Normal [facility] CHEMISTRY Potassium Lvl 4.4 meq/L 3.5 - 5.1 03/06/2012 Normal [facility] CHEMISTRY Sodium Lvl 134 meq/L 135 - 145 03/06/2012 LOW [facility] CHEMISTRY Creatinine Lvl 1.5 mg/dL 0.5 - 1.4 03/06/2012 [facility] CHEMISTRY BUN 21 mg/dL 7 - 22 03/06/2012 Normal [facility] CHEMISTRY Glucose Lvl 321 mg/dL 70 - 99 03/06/2012 [place] 2Interpretive Data: Adult reference range values reflect the clinical guidelinesof the [place] [employer]. [facility] HEMATOLOGY Monocytes # 1.3 K/CMM 0.0 - 0.8 03/06/2012 [facility] HEMATOLOGY Lymphocytes # 1.0 K/CMM 1.0 - 5.5 03/06/2012 Normal [facility] HEMATOLOGY Segs-Bands # 10.3 K/CMM 1.5 - 8.1 03/06/2012 [facility] HEMATOLOGY Lymphocytes 8.0 % 20.0 - 40.0 03/06/2012 LOW [facility] HEMATOLOGY Bands 11.0 % 0.0 - 11.0 03/06/2012 Normal [facility] HEMATOLOGY Monocytes 10.0 % 2.0 - 12.0 03/06/2012 Normal [facility] HEMATOLOGY Segs 71.0 % 45.0 - 75.0 03/06/2012 Normal [facility] HEMATOLOGY RBC Morph Normal (03/06/2012 13:13:00) 03/06/2012 Normal [facility] HEMATOLOGY Plt Morph Normal (03/06/2012 13:13:00) 03/06/2012 Normal [facility] HEMATOLOGY MCV 88.2 fL 81.0 - 99.0 03/06/2012 Normal [facility] HEMATOLOGY RBC 3.89 M/CMM 4.20 - 5.40 03/06/2012 LOW [facility] HEMATOLOGY WBC 12.6 K/CMM 3.7 - 10.4 03/06/2012 [facility] HEMATOLOGY Platelet 141 K/CMM 133 - 450 03/06/2012 Normal [facility] HEMATOLOGY RDW 14.6 % 11.5 - 14.5 03/06/2012 [facility] HEMATOLOGY MCHC 33.2 g/dL 32.0 - 36.0 03/06/2012 Normal [facility] HEMATOLOGY MCH 29.3 pg 27.0 - 31.0 03/06/2012 Normal [facility] HEMATOLOGY MPV 8.9 fL 7.4 - 10.4 03/06/2012 Normal [facility] HEMATOLOGY Hgb 11.4 g/dL 12.0 - 16.0 03/06/2012 LOW [facility] HEMATOLOGY Hct 34.3 % 36.0 - 48.0 03/06/2012 LOW [facility] Microbiology Culture: Blood 03/06/2012 [facility] Microbiology Culture: Blood 03/06/2012 [facility] Vital Signs Vital Sign Value Date Comments Source Weight 88.636 03/28/2018 [facility] BMI Calculated 35.74 03/28/2018 [facility] Height 157.48 cm 03/28/2018 [facility] Respitory Rate 14 03/28/2018 [facility] Heart Rate 79 03/28/2018 [facility] Temperature Oral (F) 98.0 F 03/28/2018 [facility] Systolic (mm Hg) 134 03/28/2018 [facility] Diastolic (mm Hg) 69 03/28/2018 [facility] Weight 91.818 12/27/2017 [facility] BMI Calculated 37.02 12/27/2017 [facility] Height 157.48 cm 12/27/2017 [facility] Heart Rate 66 12/27/2017 [facility] Systolic (mm Hg) 135 12/27/2017 [facility] Diastolic (mm Hg) 74 12/27/2017 [facility] Temperature Oral (F) 98.0 F 12/27/2017 [facility] Respitory Rate 14 12/27/2017 [facility] Respitory Rate 14 03/06/2015 [facility] Systolic (mm Hg) 125 03/06/2015 [facility] Diastolic (mm Hg) 98 03/06/2015 [facility] Respitory Rate 17 03/06/2015 [facility] Systolic (mm Hg) 127 03/06/2015 [facility] Diastolic (mm Hg) 98 03/06/2015 [facility] Respitory Rate 11 03/06/2015 [facility] Systolic (mm Hg) 110 03/06/2015 [facility] Diastolic (mm Hg) 50 03/06/2015 [facility] Heart Rate 60 02/26/2015 [facility] Temperature Oral (F) 98.1 F 02/26/2015 [facility] BMI Calculated 35.47 02/26/2015 [facility] Weight 82.386 02/26/2015 [facility] Height 152.4 cm 02/26/2015 [facility] Diastolic (mm Hg) 79 02/07/2014 [facility] Temperature Oral (F) 98.0 F 02/07/2014 [facility] Heart Rate 79 02/07/2014 [facility] Respitory Rate 18 02/07/2014 [facility] Systolic (mm Hg) 149 02/07/2014 [facility] Height 157.48 cm 02/07/2014 [facility] Weight 81.818 02/07/2014 [facility] BMI Calculated 32.99 02/07/2014 [facility] Respitory Rate 18 02/07/2014 [facility] Temperature Oral (F) 98.0 F 02/07/2014 [facility] Systolic (mm Hg) 147 02/07/2014 [facility] Diastolic (mm Hg) 67 02/07/2014 [facility] Heart Rate 93 02/07/2014 [facility] BMI Calculated 35.03 01/29/2014 [facility] Weight 84.091 01/29/2014 [facility] Height 154.94 cm 01/29/2014 [facility] Systolic (mm Hg) 126 11/30/2013 [facility] Respitory Rate 18 11/30/2013 [facility] Heart Rate 74 11/30/2013 [facility] Diastolic (mm Hg) 50 11/30/2013 [facility] Temperature Oral (F) 98.9 F 11/30/2013 [facility] Height 154.94 cm 11/30/2013 [facility] Weight 90.909 11/30/2013 [facility] Heart Rate 73 11/30/2013 [facility] Respitory Rate 16 11/30/2013 [facility] Diastolic (mm Hg) 77 11/30/2013 [facility] Temperature Oral (F) 98.3 F 11/30/2013 [facility] Systolic (mm Hg) 136 11/30/2013 [facility] Diastolic (mm Hg) 75 08/03/2012 [facility] Respitory Rate 16 08/03/2012 [facility] Heart Rate 74 08/03/2012 [facility] Temperature Oral (F) 98 F 08/03/2012 [facility] Systolic (mm Hg) 126 08/03/2012 [facility] Diastolic (mm Hg) 73 08/03/2012 [facility] Heart Rate 78 08/03/2012 [facility] Temperature Oral (F) 97.8 F 08/03/2012 [facility] Systolic (mm Hg) 131 08/03/2012 [facility] Respitory Rate 16 08/03/2012 [facility] Systolic (mm Hg) 145 08/03/2012 [facility] Heart Rate 74 08/03/2012 [facility] Diastolic (mm Hg) 74 08/03/2012 [facility] Respitory Rate 20 08/03/2012 [facility] Temperature Oral (F) 98.0 F 08/03/2012 [facility] Weight 88.636 07/28/2012 [facility] Height 157.48 cm 07/28/2012 [facility] Diastolic (mm Hg) 67 05/22/2012 [facility] Systolic (mm Hg) 135 05/22/2012 [facility] Respitory Rate 18 05/22/2012 [facility] Heart Rate 76 05/22/2012 [facility] Diastolic (mm Hg) 53 05/22/2012 [facility] Systolic (mm Hg) 133 05/22/2012 [facility] Heart Rate 63 05/22/2012 [facility] Respitory Rate 18 05/22/2012 [facility] Respitory Rate 16 05/22/2012 [facility] Diastolic (mm Hg) 47 05/22/2012 [facility] Systolic (mm Hg) 129 05/22/2012 [facility] Heart Rate 62 05/22/2012 [facility] Weight 85.455 05/19/2012 [facility] Height 157.48 cm 05/19/2012 [facility] Height 162.56 cm 03/06/2012 [facility] Weight 104.545 03/06/2012 [facility] Encounters Location Location Details Encounter Type Encounter Number Reason For Visit Attending Provider ADM Date DC Date Status Source [facility] Emergency [id number] ERIK NEHEMIAS 03/06/2012 03/06/2012 Active [facility] Outpatient [id number] PNEUMONIA STACIA NEWELL 03/17/2012 Active [facility] Outpatient [id number] ABD PAIN, CHEST PAIN, SHORTNESS OF BREATH CARLOS MALDONADO 04/01/2012 Active [facility] MEÑO [id number] LIDA FLOOD 05/22/2012 05/22/2012 Active [facility] Outpatient [id number] 794.31ABNORMAL EKG DR PULIDO WILL READ* JELLY PULIDO 07/25/2012 Active [facility] Inpatient [id number] CECAL MASS THEODOROS VOLOYIANNIS 07/31/2012 08/03/2012 Active [facility] Outpatient [id number] ROUTINE/MENOPAUSAL STACIA NEWELL 02/16/2013 02/16/2013 Active [facility] Emergency [id number] LOW SUGAR NADIM ROMAN CATHOLIC 11/30/2013 11/30/2013 Active [facility] Outpatient [id number] _MAPID:[id number] Stacia Newell 01/29/2014 01/30/2014 [facility] [place] [facility] [id number] _MAPID:[id number] Darian Muñoz 02/07/2014 02/07/2014 [facility] Outpatient [id number] Salbador Carlos Alberto 01/30/2015 01/31/2015 [facility] Bedded Outpatient [id number] Salbador Carlos Alberto 03/06/2015 03/06/2015 [facility] Outpatient [id number] STACIA NEWELL 09/05/2015 Active [facility] Outpatient [id number] STACIA NEWELL 12/09/2015 Active [facility] [place] [facility] [id number] Stacia Newell 12/15/2015 12/16/2015 [facility] [place] Outpatient [id number] STACIA NEWELL 01/07/2016 Active [facility] [place] [facility] [id number] Stacia Newell 01/23/2016 01/24/2016 [facility] Outpatient [id number] STACIA NEWELL 01/28/2016 Active [facility] Outpatient [id number] STACIA NEWELL 02/26/2016 Active [facility] Outpatient [id number] STACIA NEWELL 06/01/2016 Active [facility] Outpatient [id number] STACIA NEWELL 06/04/2016 Active [facility] Outpatient [id number] STACIA NEWELL 09/07/2016 Active [facility] [place] [facility] [id number] Cristino So 06/20/2017 06/21/2017 [facility] [place] Outpatient [id number] FLAKITA KEITHH 09/26/2017 Active [facility] Outpatient [id number] FLAKITA KEITHH 12/27/2017 Active [facility] Outpatient [id number] Flakita Keithh 12/27/2017 12/28/2017 [facility] Outpatient [id number] FLAKITA KEITHH 03/28/2018 Active [facility] Outpatient [id number] Stacia Katia 03/28/2018 03/29/2018 [facility] Phone Message [id number] 04/07/2018 04/09/2018 [facility] Phone Message [id number] 04/07/2018 04/09/2018 [facility] Phone Message [id number] 04/24/2018 04/26/2018 [facility] Phone Message [id number] 04/27/2018 04/29/2018 [facility] Phone Message [id number] 05/01/2018 05/03/2018 [facility] Outpatient [id number] FLAKITA KEITHH 07/04/2018 Active [facility] Outpatient [id number] FLAKITA KEITHH 09/06/2018 Active [facility] Outpatient [id number] FLAKITA KEITHH 10/04/2018 Active [facility] Outpatient [id number] V76.10 STACIA NEWELL Active [facility] Procedures Procedure Code Date Perfomer Comments Source Diabetic retinopathy screening [id number] 06/21/2017 [facility] Diabetic retinopathy screening<sup>1</sup> 502174616 06/21/2017 reportedly no retinopathy, left cataract [facility] Colonoscopy<sup>1</sup> [id number] 03/06/2015 Normal colon [facility] [place] Colonoscopy<sup>2</sup> [id number] 03/06/2015 Normal colon [facility] Incision and drainage of abscess of back [id number] 02/07/2014 [facility] [place] Incision and drainage of abscess of back [id number] 02/07/2014 [facility] Laparoscopic sigmoid colectomy [id number] 11/21/2012 [facility] Laparoscopic sigmoid colectomy [id number] 11/21/2012 [facility] [place] Laparoscopic sigmoid colectomy [id number] 11/21/2012 [facility] Esophagogastroduodenoscopy [id number] 05/22/2012 [facility] [place] Esophagogastroduodenoscopy [id number] 05/22/2012 Medical [facility] Laparoscopic cholecystectomy [id number] 11/21/2002 [facility] Laparoscopic cholecystectomy [id number] 11/21/2002 CAR[facility] Yun Laparoscopic cholecystectomy [id number] 11/21/2002 [facility] Incision AND drainage [id number] [facility]
--- OUTSIDE RECORDS SUMMARY | 2018-09-19 11:21 | XMS REPORT | CCD ---
Author Author Auto Generated Organization Address Unknown Phone Unavailable Care Team Providers Care Oil Rig Driller Name Role Phone Kevin Abraham RP Allergies, Adverse Reactions, Alerts Substance Reaction Status NKDA Active
--- OUTSIDE RECORDS SUMMARY | 2018-09-19 11:21 | XMS REPORT | Summary of Care ---
Author Organization Unknown Address Unknown Phone Unavailable Encounter Dates Location Diagnoses Discharge Providers Disposition 01/29/2014 [facility] [id number] [address] Reason for Visit 518.89 Vital Signs Most recent to 1 oldest [Reference Range]: Height 154.94 cm (01/29/2014 13:45:00 [facility]) Weight 84.091 kg (01/29/2014 13:45:00 [facility]) Body Mass Index 35.03 m2 (01/29/2014 13:45:00 [facility]) Problem List Condition Effective Dates Status Health Status Informant Diabetes Resolved mellitus(Confirmed) Ex-smoker(Confirmed) Active Hypertension(Confirm Active ed) SOB - Shortness of Active breath(Confirmed) Allergies, Adverse Reactions, Alerts Status Substance Reaction Severity Active NKDA Medications No data available for this section Medications Administered During Your Visit No data available for this section Immunizations No data available for this section Social History Social History Type Response
--- OUTSIDE RECORDS SUMMARY | 2018-09-19 11:21 | XMS REPORT | CCD ---
Author Author Auto Generated Organization [facility] Address Unknown Phone Unavailable Care Team Providers Care Phy Therapist Name Role Phone Duncan Mercado RP Allergies, Adverse Reactions, Alerts Substance Reaction Status NKDA Active Problem List Condition Effective Dates Status Ex-smoker Active Hypertension Active SOB - Shortness of breath Active
--- OUTSIDE RECORDS SUMMARY | 2018-09-19 11:21 | XMS REPORT | Summary of Care ---
Author Organization Unknown Address Unknown Phone Unavailable Encounter Dates Location Diagnoses Discharge Providers Disposition 02/07/2014 [facility] Discharge Home [facility] Diagnosis: 02/07/2014 [address] [address] insect [place], [place] [address] , [facility] bite-infected, abscess back Reason for Visit BACK PAIN Vital Signs Most recent to 1 2 oldest [Reference Range]: Height 157.48 cm (02/07/2014 14:43:00 [facility]) Temperature Oral 98.0 DegF 98.0 DegF [96.4-99.1 DegF] (02/07/2014 18:24:00 [facility]) (02/07/2014 14:43:00 [facility]) Systolic Blood 149 mmHg 147 mmHg Pressure [90-140 *HI* *HI* mmHg] (02/07/2014 18:24:00 [facility]) (02/07/2014 14:43:00 [facility]) Diastolic Blood 79 mmHg 67 mmHg Pressure [60-90 (02/07/2014 18:24:00 [facility]) (02/07/2014 14:43:00 [facility]) mmHg] Respiratory Rate 18 BRMIN 18 BRMIN [14-20 BRMIN] (02/07/2014 18:24:00 [facility]) (02/07/2014 14:43:00 [facility]) Peripheral Pulse 79 bpm 93 bpm Rate [60-100 bpm] (02/07/2014 18:24:00 [facility]) (02/07/2014 14:43:00 [facility]) Weight 81.818 kg (02/07/2014 14:43:00 [facility]) Body Mass Index 32.99 m2 (02/07/2014 14:43:00 [facility]) Problem List Condition Effective Dates Status Health Status Informant Diabetes Resolved mellitus(Confirmed) Ex-smoker(Confirmed) Active Hypertension(Confirm Active ed) Hypertension(Confirm Resolved ed) SOB - Shortness of Active breath(Confirmed) Allergies, Adverse Reactions, Alerts Status Substance Reaction Severity Active NKDA Medications Medication Instructions Start Date Stop Date Status Bactrim DS oral 1 tab, PO, BID, # 20 tab, 0 02/07/2014 02/17/2014 Ordered tablet Refill(s) Bactroban 2% topical 1 appl, TOP, TID, # 15 gm, 0 02/07/2014 Ordered ointment Refill(s) lidocaine 1% 10 ml, Route: SUB-Q, Drug Form: 02/07/2014 02/07/2014 Completed injectable solution INJ, Dosing Weight 81.818, kg, ONCE, STAT, Start date: 02/07/14 16:28:00, Stop date: 02/07/14 16:28:00 Preservative free. (Same as: Xylocaine MPF) Ultram 50 mg oral 1 - 2 tabs, PO, Q4-6H, as needed 02/07/2014 Ordered tablet for pain, # 20 tab, 0 Refill(s) Medications Administered During Your Visit No data available for this section Immunizations Vaccine Date Refusal Reason tetanus-diphtheria toxoids 02/07/2014 Social History Social History Type Response Smoking Status Use: Never smoker. Household tobacco concerns: No. Tobacco smoke exposure: None. Did the Patient Smoke Cigarettes Anytime During the Last 365 Days? No. Cessation Counseling Provided? No.
--- OUTSIDE RECORDS SUMMARY | 2018-09-19 11:21 | XMS REPORT | Summary of Care ---
Author Organization Unknown Address Unknown Phone Unavailable Encounter HQ Encntr_lupe(VON) [id number] Date(s): 01/30/15 - 01/30/15 [facility] [address] [place] [address]- Discharge Disposition: Home Physician Attending: Salbador Carcamo MD Physician_Referring: Salbador Carcamo MD Vital Signs No data available for this section Problem List Condition Effective Dates Status Health Status Informant Diabetes Resolved mellitus(Confirmed) Ex-smoker(Confirmed) Active Hypertension(Confirm Active ed) Hypertension(Confirm Resolved ed) SOB - Shortness of Active breath(Confirmed) Allergies, Adverse Reactions, Alerts Substance Reaction Severity Status NKDA Active Medications No data available for this section Results No data available for this section Immunizations Vaccine Date Refusal Reason tetanus-diphtheria toxoids 02/07/14 Procedures No data available for this section Social History Social History Type Response Smoking Status Never smoker; Concerns about tobacco use in household: No; Exposure to Tobacco Smoke None; Cigarette Smoking Last 365 Days No; Reg Smoking Cessation Counseling No Assessment and Plan No data available for this section
--- OUTSIDE RECORDS SUMMARY | 2018-09-19 11:21 | XMS REPORT | CCD ---
Author Author Auto Generated Organization [facility] Address Unknown Phone Unavailable Care Team Providers Care Tree And Shrub Technician Name Role Phone Rufus Cano RP Allergies, Adverse Reactions, Alerts Substance Reaction Status NKDA Active
--- OUTSIDE RECORDS SUMMARY | 2018-09-19 11:21 | XMS REPORT | CCD ---
Author Author Auto Generated Organization [facility] Address Unknown Phone Unavailable Care Team Providers Care Information Clerk [employer] Name Role Phone Karlie Montalvo RP Allergies, Adverse Reactions, Alerts Substance Reaction Status NKDA Active Problem List Condition Effective Dates Status Ex-smoker Active Hypertension Active SOB - Shortness of breath Active
--- OUTSIDE RECORDS SUMMARY | 2018-09-19 11:21 | XMS REPORT | Summary of Care ---
Author Author [facility] [place] Organization [facility] [place] Address Unknown Phone Unavailable Encounter ARCHIE Chung(VON) [id number] Date(s): 06/20/17 - 06/20/17 [facility] [place] [address] [phone] Discharge Disposition: Home or Self Care Attending Physician: Cristino So MD Vital Signs No data available for this section Problem List Condition Effective Dates Status Health Status Informant Acute Resolved constipation(Confirm ed) Benign hypertension Active with chronic kidney disease, stage III(Confirmed) Bilateral Active cataracts(Confirmed) Screening for breast Resolved cancer(Confirmed) Ángela Active vaginitis(Confirmed) Chronic Resolved folliculitis(Confirm ed) Chronic kidney 09/19/13 Active disease stage 31 Leg Active cramps(Confirmed) Daytime Active somnolence(Confirmed ) detention current Active use of insulin(Confirmed) History of Active fall(Confirmed) 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/06/13 Resolved neoplasm of colon2 Hypercholesterolemia Active (Confirmed) Hypothyroidism3, 4 01/21/15 Active Pulmonary Active nodule(Confirmed) Medicare annual Resolved wellness visit, subsequent(Confirmed ) Obesity5 08/16/14 Active Osteoporosis6, 7 12/24/14 Active Pain and swelling of Active right lower leg(Confirmed) Peripheral Active edema(Confirmed) Sleep Active apnea(Confirmed) Type 2 diabetes Active mellitus with polyneuropathy(Confi rmed) Type 2 diabetes Active mellitus with stage 3 chronic kidney disease(Confirmed) Type 2 diabetes Active mellitus with hyperglycemia(Confir med) 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 2Data migrated from [employer] on 04/21/15. 3Data migrated from [employer] on 05/28/15. 4Data migrated from [employer] on 04/22/15. 5Data migrated from [employer] on 04/21/15. 6Data migrated from [employer] on 05/28/15. 7Data migrated from [employer] on 04/22/15. 8Data migrated from [employer] on 04/21/15. 9Data migrated from [employer] on 04/21/15. Allergies, Adverse Reactions, Alerts Substance Reaction Severity Status NKDA Active Medications No data available for this section Results No data available for this section Immunizations Given and Recorded Vaccine Date Status Refusal Reason influenza virus vaccine, inactivated 09/05/15 Given influenza virus vaccine, inactivated1 08/16/14 Given pneumococcal 23-valent vaccine2 09/20/13 Given tetanus-diphtheria toxoids 02/07/14 Given 1Result Comment: fluzone high dose [[id number]]. Migrated from OBS ; Data migrated from [employer] on 12/23/2015. 2Result Comment: pneumovax 23 [cvx33]. Migrated from OBS VIS: Pneumovax 23: 08-26-09 ; Data migrated from [employer] on 12/23/2015. Procedures Procedure Date Related Diagnosis Body Site Colonoscopy1 03/06/15 Incision and drainage of abscess of back 02/07/14 Laparoscopic sigmoid colectomy 2012 Esophagogastroduodenoscopy 05/22/12 Laparoscopic cholecystectomy 2002 1Normal colon Social History Social History Type Response Substance Abuse Use: None. Exercise 1 Employment/School Work/School description: Disabled. Alcohol Never Smoking Status Former smoker; Type: Cigarettes; Tobacco use per day: 40; Started at age: 16.0; Stopped at age: 47; Exposure to Tobacco Smoke None; Other Tobacco Frequency Quit smoking 1989; Cigarette Smoking Last 365 Days No; Reg Smoking Cessation Counseling No 1None Assessment and Plan No data available for this section
--- OUTSIDE RECORDS SUMMARY | 2018-09-19 11:21 | XMS REPORT | Summary of Care ---
Author Author [facility] [place] Organization [facility] [place] Address Unknown Phone Unavailable Encounter HQ Sheldon(FIN) [id number] Date(s): 01/23/16 - 01/23/16 [facility] - [place] [address] [address]- [facility] [phone] Discharge Disposition: Home Attending Physician: Karlie Montalvo MD Vital Signs No data available for this section Problem List Condition Effective Dates Status Health Status Informant Acute Resolved constipation(Confirm ed) Benign hypertension Active with chronic kidney disease, stage III(Confirmed) Screening for breast Active cancer(Confirmed) Ángela Active vaginitis(Confirmed) Chronic kidney 09/19/13 Active disease stage 31 Leg Active cramps(Confirmed) Daytime Active somnolence(Confirmed ) snf current Active use of insulin(Confirmed) History of Active fall(Confirmed) 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/06/13 Resolved neoplasm of colon2 Hypercholesterolemia Active (Confirmed) Hypothyroidism3, 4 01/21/15 Active Pulmonary Active nodule(Confirmed) Medicare annual Active wellness visit, subsequent(Confirmed ) Obesity5 08/16/14 Active Osteoporosis6, 7 12/24/14 Active Pain and swelling of Active right lower leg(Confirmed) Sleep Active apnea(Confirmed) Type 2 diabetes Active mellitus with polyneuropathy(Confi rmed) Type 2 diabetes Active mellitus with stage 3 chronic kidney disease(Confirmed) Type 2 diabetes Active mellitus with hyperglycemia(Confir med) 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 2Data migrated from [employer] [...] Alerts Substance Reaction Severity Status NKDA Active NKDA1 Active 1Data migrated from [employer] on 01/23/16. Originally documented as NKA. Medications No data available for this section Results No data available for this section Immunizations Vaccine Date Refusal Reason influenza virus vaccine, inactivated 09/05/15 influenza virus vaccine, inactivated1 08/16/14 pneumococcal 23-valent vaccine2 09/20/13 tetanus-diphtheria toxoids 02/07/14 1Result Comment: fluzone high dose [[id number]]. Migrated from OBS ; Data migrated from [employer] on 12/23/2015. 2Result Comment: pneumovax 23 [cvx33]. Migrated from OBS VIS: Pneumovax 23: 10-06- ; Data migrated from [employer] on [...]
--- OUTSIDE RECORDS SUMMARY | 2018-09-19 11:21 | XMS REPORT | CCD ---
Author Author Auto Generated Organization [facility] Address Unknown Phone Unavailable Care Team Providers Care Unemployment Inspector Name Role Phone Karlie Montalvo RP Allergies, Adverse Reactions, Alerts Substance Reaction Status NKDA Active
--- OUTSIDE RECORDS SUMMARY | 2018-09-19 11:21 | XMS REPORT | CCD ---
Author Author Auto Generated Organization [facility] Address Unknown Phone Unavailable Care Team Providers Care Fisher Trap Name Role Phone Rusty Henderson RP Allergies, Adverse Reactions, Alerts Substance Reaction Status NKDA Active Medications Medication Instructions Start Date End Date Status losartan 50 mg oral 50 mg, 1 tab, PO, Daily, 30 tab, 05/20/2012 Ordered tablet Substitution Allowed, TAB gabapentin 300 mg 300 mg, 1 cap, PO, BID, 90 cap, 05/20/2012 Ordered oral capsule Substitution Allowed metFORmin 1000 mg 1,000 mg, 1 tab, PO, BID, 30 tab, 05/20/2012 Ordered oral tablet Substitution Allowed NovoLog 100 units/mL 40 unit, SUB-Q, TID-Before Meals, 05/20/2012 Ordered subcutaneous 10 ml, Substitution Allowed, SOLN solution Levemir 100 units/mL 80 unit, SUB-Q, BID, 10 ml, 05/20/2012 Ordered subcutaneous Substitution Allowed, SOLN solution aspirin 325 mg 325 mg, 1 tab, PO, Daily, 30 tab, 05/22/2012 Ordered tablet Substitution Allowed, TAB Sodium Chloride 1,000 mL, Rate: 40 ml/hr, Infuse 05/22/2012 05/22/2012 Discontinued 0.45% IV 1,000 mL over: 25 hr, Route: IV, Dosing Weight 85.455 kg, Total Volume: 1,000, Start date: 05/22/12 10:56:00, Duration: 30 day, Stop date: 06/21/12 10:55:00 ranitidine 150 mg 150 mg, 1 tab, PO, Daily, 60 tab, 05/20/2012 Ordered oral tablet Substitution Allowed spironolactone 25 mg 25 mg, 1 tab, PO, Daily, 180 tab, 05/20/2012 Ordered oral tablet Substitution Allowed, TAB levothyroxine 125 125 microgram, 1 tab, PO, Daily, 30 05/20/2012 Ordered mcg (0.125 mg) oral tab, Substitution Allowed, TAB tablet Vital Signs Most recent to oldest [Reference Range]: 1 2 3 Height 157.48 cm (05/19/2012 16:06:00) Systolic Blood Pressure [90-140 mmHg] 135 mmHg (05/22/2012 13:30:00) 133 mmHg (05/22/2012 13:15:00) 129 mmHg (05/22/2012 13:00:00) Diastolic Blood Pressure [60-90 mmHg] 67 mmHg (05/22/2012 13:30:00) 53 mmHg *LOW* (05/22/2012 13:15:00) 47 mmHg *LOW* (05/22/2012 13:00:00) Respiratory Rate [14-20 BRMIN] 18 BRMIN (05/22/2012 13:30:00) 18 BRMIN (05/22/2012 13:15:00) 16 BRMIN (05/22/2012 13:00:00) Peripheral Pulse Rate [60-100 bpm] 76 bpm (05/22/2012 13:30:00) 63 bpm (05/22/2012 13:15:00) 62 bpm (05/22/2012 13:00:00) Weight 85.455 kg (05/19/2012 16:06:00)
--- OUTSIDE RECORDS SUMMARY | 2018-09-19 11:21 | XMS REPORT | Summary of Care ---
Author Author [facility] [place] Organization [facility] [place] Address Unknown Phone Unavailable Encounter HQ Sheldon(VON) [id number] Date(s): 12/15/15 - 12/15/15 [facility] - [place] [address] [place], [place] [address] [phone] Discharge Disposition: Home Attending Physician: Karlie Montalvo MD Vital Signs No data available for this section Problem List Condition Effective Dates Status Health Status Informant Acute Resolved constipation(Confirm ed) Benign hypertension Active with chronic kidney disease, stage III(Confirmed) Screening for breast Active cancer(Confirmed) Ángela Active vaginitis(Confirmed) Chronic kidney 09/19/13 Active disease stage 31 Leg Active cramps(Confirmed) Daytime Active somnolence(Confirmed ) 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 Migrated from OBS ; Data migrated from [employer] on 06/04/2015. 2Result Comment: pneumovax 23 [cvx33]. Migrated from OBS VIS: Pneumovax 23: 08-26-09 ; Data migrated from [employer] on 06/04/2015. Procedures Procedure Date Related Diagnosis Body Site [...]
--- OUTSIDE RECORDS SUMMARY | 2018-09-19 11:21 | XMS REPORT | Summary of Care ---
Author Author [facility] Organization [facility] Address Unknown Phone Unavailable Encounter HQ Sheldon(FIN) [id number] Date(s): 12/27/17 - 12/27/17 [facility] [address], [address] [place] [address]- [phone] Discharge Disposition: Home or Self Care Attending Physician: Kira Man DO Vital Signs Most recent to 1 oldest [Reference Range]: Height 157.48 cm (12/27/17 10:24 AM) Temperature Oral 98.0 DegF [96.4-99.1 DegF] (12/27/17 10:24 AM) Blood Pressure 135/74 mmHg [90-140/60-90 mmHg] (12/27/17 10:24 AM) Respiratory Rate 14 BRMIN [14-20 BRMIN] (12/27/17 10:24 AM) Peripheral Pulse 66 bpm Rate [60-100 bpm] (12/27/17 10:24 AM) Weight 91.818 kg (12/27/17 10:24 AM) Body Mass Index 37.02 m2 (12/27/17 10:24 AM) Problem List Condition Effective Dates Status Health Status Informant Anemia(Confirmed) Active Benign hypertension Active with chronic kidney disease, stage III(Confirmed) Cataract(Confirmed) Active Chronic kidney 09/19/13 Active disease stage 3(Confirmed)1 group home current Active use of insulin(Confirmed) History of < 12/09/15 Resolved fall(Confirmed) 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/06/13 - 09/26/17 Resolved neoplasm of colon2 Hyperlipidemia(Confi Active rmed) Hypothyroidism(Confi 01/21/15 Active rmed)3, 4 Pulmonary Active nodule(Confirmed) Obesity(Confirmed)5 08/16/14 Active Osteoporosis6, 7 12/24/14 Active Peripheral Active edema(Confirmed) Sleep Active apnea(Confirmed) Type 2 diabetes Active mellitus with polyneuropathy(Confi rmed) Type 2 diabetes Active mellitus with stage 3 chronic kidney disease(Confirmed) Type 2 diabetes Active mellitus with hyperglycemia(Confir med) Unsteady gait8 12/19/13 Active Varicose veins of 05/16/13 Active lower extremity9 Vitamin D Active deficiency(Confirmed ) 1Data migrated from [employer] on 04/21/15. [...] Substance Reaction Severity Status NKDA Active Medications Bath Seat/Shower Seat Misc/Other 1 ea, MISC, ONCE, dispense one shower chair, # 1 unit, 0 Refill(s) Start Date: 12/27/17 Status: Ordered Cane 1 ea, MISC, ONCE, dispense one 3 or 4 point cane, # 1 ea, 0 Refill(s) Start Date: 12/27/17 Status: Ordered DME Prescription See Instructions, MISC, ONCE, dispense shower rail with suction, # 1 unit, 0 Ref ill(s) Start Date: 12/27/17 Status: Ordered Humalog Kwik Pen 100 units/mL subcutaneous injection 35 units, SUB-Q, BID-Meals, # 2 box, 5 Refill(s), Pharmacy: [facility] Start Date: 12/27/17 Stop Date: 06/20/19 Status: Ordered hydrocortisone topical 2.5% cream 1 appl, TOP, BID, X 14 day, # 30 gm, 2 Refill(s), Pharmacy: [facility] Start Date: 01/25/18 Stop Date: 03/08/18 Status: Ordered insulin glargine 100 units/mL subcutaneous solution 65 unit, SUB-Q, QAM, # 2 box, 5 Refill(s), [facility]acy: [facility] Start Date: 12/27/17 Stop Date: 06/20/19 Status: Ordered losartan 100 mg oral tablet 100 mg=1 tab, PO, Daily, # 90 tab, 1 Refill(s), Pharmacy: [facility] Start Date: 12/27/17 Stop Date: 06/25/18 Status: Ordered metFORMIN 1000 mg oral tablet 1,000 mg=1 tab, PO, BID, X 90 day, # 180 tab, 1 Refill(s), Pharmacy: [facility] Start Date: 12/27/17 Stop Date: 06/25/18 Status: Ordered ranitidine 150 mg oral tablet See Instructions, TAKE ONE TABLET BY MOUTH DAILY, # 90 tab, 1 Refill(s), Pharmac y: [facility] Start Date: 11/09/17 Status: Ordered Results No data available for this section Immunizations Given and Recorded Vaccine Date Status Refusal Reason pneumococcal 13-valent vaccine1 12/27/17 Given influenza virus vaccine, inactivated2 09/26/17 Given influenza virus vaccine, inactivated 09/05/15 Given influenza virus vaccine, inactivated3 08/16/14 Given tetanus-diphtheria toxoids 02/07/14 Given pneumococcal 23-valent vaccine4 09/20/13 Given 1Result Comment: Patient waited 15 minutes, no reaction noted. 2Result Comment: Patient waited 15 minutes, no reaction noted. 3Result Comment: fluzone high dose [[id number]]. Migrated from OBS ; Data migrated from [employer] on 12/23/2015. 4Result Comment: pneumovax 23 [cvx33]. Migrated from OBS VIS: Pneumovax 23: 08-26-09 ; Data migrated from [employer] on 12/23/2015. Procedures Procedure Date Related Diagnosis Body Site Status Diabetic retinopathy screening 06/21/17 Completed Diabetic retinopathy screening1 06/2017 Completed Colonoscopy2 03/06/15 Completed Incision and drainage of abscess of back 02/07/14 Completed Laparoscopic sigmoid colectomy 2012 Completed Esophagogastroduodenoscopy 05/22/12 Completed Laparoscopic cholecystectomy 2002 Completed 1reportedly no retinopathy, left cataract 2Normal colon Social History Social History Type Response Substance Abuse Use: None. Exercise Exercise duration: 0.1 Employment/School Work/School description: Disabled. Other: illiterate. Alcohol Never Smoking Status Former smoker; Type: Cigarettes; Exposure to Tobacco Smoke None; Cigarette Smoking Last 365 Days No; Reg Smoking Cessation Counseling No; Tobacco use per day: 40; Started at age: 16.0; Stopped at age: 47; Other Tobacco Frequency Quit smoking 1989; entered on: 12/27/17 1None Assessment and Plan No data available for this section
--- OUTSIDE RECORDS SUMMARY | 2018-09-19 11:21 | XMS REPORT | CCD ---
Author Author Auto Generated Organization [facility] Address Unknown Phone Unavailable Care Team Providers Care Legal Researcher Name Role Phone Yonis Penn CP Allergies, Adverse Reactions, Alerts Substance Reaction Status NKDA Active Medications Medication Instructions Start Date End Date Status Insulin regular 10 unit, 0.1 mL, Route: IVP, Drug 03/06/2012 03/06/2012 Completed form: INJ, ONCE, Priority: STAT, Start date: 03/06/12 15:30:00, Stop date: 03/06/12 15:30:00 albuterol CFC free 2 puff, INHALATION, QID, PRN, 17 03/06/2012 Ordered 90 mcg/inh gm, Wheezing, Substitution Allowed, inhalation aerosol Maintenance, AERO with adapter Azithromycin 5 Day See Instructions, 1 pkg, 03/06/2012 Ordered Dose Pack 250 mg Substitution Allowed, as directed oral tablet on package labeling as directed on package labeling acetaminophen 650 mg, 20.3 mL, Route: PO, Drug 03/06/2012 03/06/2012 Completed form: LIQ, ONCE, Priority: STAT, Start date: 03/06/12 15:59:00, Stop date: 03/06/12 15:59:00 Rocephin 1 g/ NS 1 gm, Route: IVPB, Drug form: 03/06/2012 03/06/2012 Completed (NaCl 0.9%) 50 mL IV PDR/INJ, ONCE, Priority: STAT, solution Start date: 03/06/12 18:33:00, Stop date: 03/06/12 18:33:00 Sodium Chloride 0.9% 500 mL, Rate: 1,000 ml/hr, Infuse 03/06/2012 03/06/2012 Completed (Bolus) IV 500 mL over: 0.5 hr, Route: IV, Dosing Weight 104.5 kg, Total Volume: 500, Priority: STAT, Start date: 03/06/12 15:32:00, Duration: 1 doses or times, Stop date: 03/06/12 16:01:00, Bolus Dose Bolus Dose Vital Signs Most recent to oldest [Reference Range]: 1 Height 162.56 cm (03/06/2012 12:02:00) Weight 104.545 kg (03/06/2012 12:02:00) Results BEDSIDE GLUCOSE TESTING Most recent to oldest [Reference Range]: 1 Gluc POC Lifscn [70-99 mg/dL] 295 mg/dL 1 *HI* (03/06/2012 18:37:00) Comment1 Notify RN/MD *NA* (03/06/2012 18:37:00) 1Interpretive Data: Upper Reportable Limit: 200 mg/dL. URINALYSIS Most recent to oldest [Reference Range]: 1 UA Turbidity [Clear] Clear (03/06/2012 15:40:00) UA Color [Yellow] Yellow *NA* (03/06/2012 15:40:00) UA pH [5.0-8.0] 5.0 (03/06/2012 15:40:00) UA Spec Grav [<=1.030] >=1.030 *ABN* (03/06/2012 15:40:00) UA Glucose [Negative mg/dL] >=1000 mg/dL *ABN* (03/06/2012 15:40:00) UA Blood [Negative] Negative (03/06/2012 15:40:00) UA Ketones [Negative mg/dL] 15 mg/dL *ABN* (03/06/2012 15:40:00) UA Protein [Negative mg/dL] 30 mg/dL *ABN* (03/06/2012 15:40:00) UA Urobilinogen [0.1-1.0 EU/dL] 0.2 EU/dL (03/06/2012 15:40:00) UA Bili [Negative] Negative (03/06/2012 15:40:00) UA Leuk Est [Negative] Negative (03/06/2012 15:40:00) UA Nitrite [Negative] Negative (03/06/2012 15:40:00) UA WBC [None Seen /HPF] 0-2 /HPF (03/06/2012 15:40:00) UA RBC [0-2] None Seen (03/06/2012 15:40:00) UA Bacteria [None Seen /HPF] Occasional /HPF (03/06/2012 15:40:00) UA Sq Epi [Few /LPF] Moderate /LPF *ABN* (03/06/2012 15:40:00) Micro? Performed (03/06/2012 15:40:00) CHEMISTRY Most recent to oldest [Reference Range]: 1 Sodium Lvl [135-145 mEq/L] 134 mEq/L *LOW* (03/06/2012 13:13:00) Potassium Lvl [3.5-5.1 mEq/L] 4.4 mEq/L (03/06/2012 13:13:00) Chloride Lvl [95-109 mEq/L] 101 mEq/L (03/06/2012 13:13:00) CO2 [24-32 mEq/L] 20 mEq/L *LOW* (03/06/2012 13:13:00) AGAP [10.0-20.0 mEq/L] 17.4 mEq/L (03/06/2012 13:13:00) Creatinine Lvl [0.5-1.4 mg/dL] 1.5 mg/dL *HI* (03/06/2012 13:13:00) BUN [7-22 mg/dL] 21 mg/dL (03/06/2012 13:13:00) B/C Ratio [6-25] 14 (03/06/2012 13:13:00) Glucose Lvl [70-99 mg/dL] 321 mg/dL 2 *HI* (03/06/2012 13:13:00) Total Protein [6.4-8.4 g/dL] 6.6 g/dL (03/06/2012 13:13:00) Albumin Lvl [3.5-5.0 g/dL] 3.4 g/dL *LOW* (03/06/2012 13:13:00) Globulin [2.0-4.0 g/dL] 3.2 g/dL (03/06/2012 13:13:00) A/G Ratio [0.7-1.6] 1.1 (03/06/2012 13:13:00) Calcium Lvl [8.5-10.5 mg/dL] 8.4 mg/dL *LOW* (03/06/2012 13:13:00) ALT [0-65 U/L] 22 U/L (03/06/2012:13:00) AST [0-37 U/L] 13 U/L (03/06/2012:13:00) Alk Phos [39-136 U/L] 53 U/L (03/06/2012:13:00) Bili Total [0.2-1.3 mg/dL] 0.7 mg/dL (03/06/2012:13:00) Amylase Lvl [25-115 U/L] 34 U/L (03/06/2012:13:00) Lipase Lvl [73-393 U/L] 89 U/L (03/06/2012:13:00) 2Interpretive Data: Adult reference range values reflect the clinical guidelinesof the [place] [employer]. HEMATOLOGY Most recent to oldest [Reference Range]: 1 WBC [3.7-10.4 K/CMM] 12.6 K/CMM *HI* (03/06/2012 13:13:00) RBC [4.20-5.40 M/CMM] 3.89 M/CMM *LOW* (03/06/2012 13:13:00) Hgb [12.0-16.0 g/dL] 11.4 g/dL *LOW* (03/06/2012 13:13:00) Hct [36.0-48.0 %] 34.3 % *LOW* (03/06/2012 13:13:00) MCV [81.0-99.0 fL] 88.2 fL (03/06/2012 13:13:00) MCH [27.0-31.0 pg] 29.3 pg (03/06/2012 13:13:00) MCHC [32.0-36.0 g/dL] 33.2 g/dL (03/06/2012 13:13:00) RDW [11.5-14.5 %] 14.6 % *HI* (03/06/2012 13:13:00) Platelet [133-450 K/CMM] 141 K/CMM (03/06/2012 13:13:00) MPV [7.4-10.4 fL] 8.9 fL (03/06/2012 13:13:00) Segs [45.0-75.0 %] 71.0 % (03/06/2012 13:13:00) Bands [0.0-11.0 %] 11.0 % (03/06/2012 13:13:00) Lymphocytes [20.0-40.0 %] 8.0 % *LOW* (03/06/2012 13:13:00) Monocytes [2.0-12.0 %] 10.0 % (03/06/2012 13:13:00) Segs-Bands # [1.5-8.1 K/CMM] 10.3 K/CMM *HI* (03/06/2012 13:13:00) Lymphocytes # [1.0-5.5 K/CMM] 1.0 K/CMM (03/06/2012 13:13:00) Monocytes # [0.0-0.8 K/CMM] 1.3 K/CMM *HI* (03/06/2012 13:13:00) RBC Morph Normal (03/06/2012 13:13:00) Plt Morph Normal (03/06/2012 13:13:00) Microbiology Reports PROCEDURE:Culture: Urine STATUS: In Progress BODY SITE: COLLECTED DATE/TIME: 03/06/2012 15:40:00 SOURCE: Urine, Clean Catch FREE TEXT SOURCE: PRELIMINARY REPORTS Preliminary Report No Growth; Holding PROCEDURE:Culture: Blood STATUS: In Progress BODY SITE: Arm L COLLECTED DATE/TIME: 03/06/2012 13:13:00 SOURCE: Blood FREE TEXT SOURCE: PRELIMINARY REPORTS Preliminary Report No Growth; Holding Preliminary Report No Growth At 1 Day PROCEDURE:Culture: Blood STATUS: In Progress BODY SITE: Arm R COLLECTED DATE/TIME: 03/06/2012 13:07:00 SOURCE: Blood FREE TEXT SOURCE: PRELIMINARY REPORTS Preliminary Report No Growth; Holding Preliminary Report No Growth At 1 Day
--- OUTSIDE RECORDS SUMMARY | 2018-09-19 11:21 | XMS REPORT | Summary of Care ---
Author Organization Unknown Address Unknown Phone Unavailable Encounter ARCHIE Chung(VON) [id number] Date(s): 03/06/15 - 03/06/15 [facility] [address] [place] [address]- Discharge Disposition: Home Physician Attending: Salbador Carcamo MD Physician Admitting: Salbador Carcamo MD Physician_Referring: Salbador Carcamo MD Vital Signs 1 2 3 Most recent to oldest [Reference Range]: 152.4 cm (02/26/15 9:53 AM) Height 98.1 DegF (02/26/15 9:53 AM) Temperature Oral [96.4-99.1 DegF] 125/98 mmHg (03/06/15 10:15 AM) 127/98 mmHg (03/06/15 9:55 AM) 110/50 mmHg (03/06/15 9:40 AM) Blood Pressure [90-140/60-90 mmHg] 14 BRMIN (03/06/15 10:15 AM) 17 BRMIN (03/06/15 9:55 AM) 11 BRMIN *LOW* (03/06/15 9:40 AM) Respiratory Rate [14-20 BRMIN] 60 bpm (02/26/15 9:53 AM) Peripheral Pulse Rate [60-100 bpm] 82.386 kg (02/26/15 9:53 AM) Weight 35.47 m2 (02/26/15 9:53 AM) Body Mass Index Problem List Condition Effective Dates Status Health Status Informant Back pain(Confirmed) Active Cancer of Active colon(Confirmed)1 Diabetes Active mellitus(Confirmed) Diabetes Resolved mellitus(Confirmed) Ex-smoker(Confirmed) Active Hypertension(Confirm Active ed) Hypertension(Confirm Active ed) Hypertension(Confirm Resolved ed) Neuropathy(Confirmed Active ) SOB - Shortness of Active breath(Confirmed) 1Previous history Allergies, Adverse Reactions, Alerts Substance Reaction Severity Status NKDA Active Medications atorvastatin 20 mg oral tablet 20 mg=1 tab, PO, Bedtime, # 30 tab, 0 Refill(s) Start Date: 02/26/15 Status: Ordered baclofen 10 mg oral tablet 10 mg=1 tab, PO, BID, # 90 tab, 0 Refill(s) Start Date: 02/26/15 Status: Ordered Humalog Kwik Pen 100 units/mL subcutaneous injection 20 unit, SUB-Q, BID, # 3 mL, 0 Refill(s) Start Date: 02/26/15 Status: Ordered Levemir FlexPen 100 units/mL subcutaneous solution 30 unit, SUB-Q, Bedtime, # 3 ml, 0 Refill(s) Start Date: 02/26/15 Status: Ordered levothyroxine 137 mcg (0.137 mg) oral tablet 137 microgram=1 tab, PO, Daily, # 30 tab, 0 Refill(s) Start Date: 02/26/15 Status: Ordered losartan 50 mg oral tablet 50 mg=1 tab, PO, Daily, # 30 tab, 0 Refill(s) Start Date: 03/06/15 Status: Ordered losartan 50 mg oral tablet 50 mg=1 tab, PO, Daily, # 30 tab, 0 Refill(s) Start Date: 02/26/15 Status: Ordered metFORMIN 1000 mg oral tablet 1,000 mg=1 tab, PO, BID, # 30 tab, 0 Refill(s) Start Date: 02/26/15 Status: Ordered ranitidine 150 mg oral tablet 150 mg=1 tab, PO, Daily, # 60 tab, 0 Refill(s) Start Date: 02/26/15 Status: Ordered Sodium Chloride 0.9% IV 1000 mL 1,000 mL, Rate: 25 ml/hr, Infuse over: 40 hr, Route: IV, Dosing Weight 82.386 kg , Total Volume: 1,000, Start date: 03/06/15 8:08:00, Duration: 30 day, Stop date : 04/05/15 8:07:00 Start Date: 03/06/15 Stop Date: 03/06/15 Status: Discontinued spironolactone 50 mg oral tablet 25 mg=0.5 tab, PO, BID, # 60 tab, 0 Refill(s) Start Date: 02/26/15 Status: Ordered tramadol 50 mg oral tablet 50 mg=1 tab, PO, Q6H, PRN Pain, # 40 tab, 0 Refill(s) Start Date: 02/26/15 Stop Date: 03/08/15 Status: Ordered Results ELECTROLYTES Most recent to 1 oldest [Reference Range]: Sodium Lvl [135-145 137 mEq/L mEq/L] (02/26/15 10:49 AM) Potassium Lvl 4.8 mEq/L [3.5-5.1 mEq/L] (02/26/15 10:49 AM) Chloride Lvl [95-109 104 mEq/L mEq/L] (02/26/15 10:49 AM) CO2 [24-32 mEq/L] 28 mEq/L (02/26/15 10:49 AM) AGAP [10.0-20.0 9.8 mEq/L mEq/L] *LOW* (02/26/15 10:49 AM) CHEM PANEL Most recent to 1 oldest [Reference Range]: Creatinine Lvl 1.4 mg/dL [0.5-1.4 mg/dL] (02/26/15 10:49 AM) eGFR 39 mL/min/1.73m2 1 *NA* (02/26/15 10:49 AM) BUN [7-22 mg/dL] 25 mg/dL *HI* (02/26/15 10:49 AM) Glucose Lvl [70-99 137 mg/dL 2 mg/dL] *HI* (02/26/15 10:49 AM) Calcium Lvl 9.0 mg/dL [8.5-10.5 mg/dL] (02/26/15 10:49 AM) 1Result Comment: The eGFR is calculated using [...] from the National Kidney Disease Education Program ( NKDEP) which additionally recommends that when the eGFR is used in patients with extremes of body mass index for purposes of drug dosing, the eGFR should be mul tiplied by the estimated BMI. 2Interpretive Data: Adult reference range values reflect the clinical guidelines of the [place] [employer]. Immunizations Vaccine Date Refusal Reason tetanus-diphtheria toxoids 02/07/14 Procedures Procedure Date Related Diagnosis Body Site Laparoscopic sigmoid colectomy 2012 Laparoscopic cholecystectomy 2002 Incision AND drainage Social History Social History Type Response Alcohol Never Smoking Status Former smoker; Type: Cigarettes; Started at age: 16.0; Exposure to Tobacco Smoke None; Other Tobacco Frequency Quit smoking 1989; Cigarette Smoking Last 365 Days No; Reg Smoking Cessation Counseling No Assessment and Plan No data available for this section
--- OUTSIDE RECORDS SUMMARY | 2018-09-19 11:21 | XMS REPORT | CCD ---
Author Author Auto Generated Organization [facility] Address Unknown Phone Unavailable Care Team Providers Care Bag Shaker Name Role Phone Michael Stiles RP Allergies, Adverse Reactions, Alerts Substance Reaction Status NKDA Active Problem List Condition Effective Dates Status Ex-smoker Active Hypertension Active SOB - Shortness of breath Active Medications Medication Instructions Start Date End Date Status Dextrose 50% Syringe 12.5 gm, 25 mL, Route: IVP, Drug 07/31/2012 08/01/2012 Discontinued Form: INJ, Dosing Weight 88.636, kg, PRN, PRN Blood Glucose Results, Start date: 07/31/12 15:14:00, Duration: 30 day, Stop date: 08/30/12 15:13:00 glucagon 1 mg, Route: IM, Drug form: 07/31/2012 08/01/2012 Discontinued PDR/INJ, PRN, Dosing Weight 88.636, kg, PRN Blood Glucose Results, Start date: 07/31/12 15:14:00, Duration: 30 day, Stop date: 08/30/12 15:13:00 Dextrose 50% Syringe 25 gm, 50 mL, Route: IVP, Drug 07/31/2012 08/01/2012 Discontinued Form: INJ, Dosing Weight 88.636, kg, PRN, PRN Blood Glucose Results, Start date: 07/31/12 15:14:00, Duration: 30 day, Stop date: 08/30/12 15:13:00 Dextrose 50% in 50 mL, Route: IVP, Start date: 08/01/2012 08/03/2012 Discontinued Water IV 08/01/12 10:27:00, Duration: 30 day, Stop date: 08/31/12 10:26:00, PRN Blood Glucose Results glucagon 1 mg, Route: IM, Drug form: 08/01/2012 08/03/2012 Discontinued PDR/INJ, PRN, PRN Blood Glucose Results, Start date: 08/01/12 10:27:00, Duration: 30 day, Stop date: 08/31/12 10:26:00 NovoLog FlexPen 12 unit, 0.12 mL, Route: SUB-Q, 08/01/2012 08/03/2012 Discontinued Drug form: SOLN, Before Meals & Bedtime, PRN Blood Glucose Results, Start date: 08/01/12 10:27:00, Duration: 30 day, Stop date: 08/31/12 10:26:00 NovoLog FlexPen 10 unit, 0.1 mL, Route: SUB-Q, Drug 08/01/2012 08/03/2012 Discontinued form: SOLN, Before Meals & Bedtime, PRN Blood Glucose Results, Start date: 08/01/12 10:27:00, Duration: 30 day, Stop date: 08/31/12 10:26:00 NovoLog FlexPen 8 unit, 0.08 mL, Route: SUB-Q, Drug 08/01/2012 08/03/2012 Discontinued form: SOLN, Before Meals & Bedtime, PRN Blood Glucose Results, Start date: 08/01/12 10:26:00, Duration: 30 day, Stop date: 08/31/12 10:25:00 NovoLog FlexPen 6 unit, 0.06 mL, Route: SUB-Q, Drug 08/01/2012 08/03/2012 Discontinued form: SOLN, Before Meals & Bedtime, PRN Blood Glucose Results, Start date: 08/01/12 10:26:00, Duration: 30 day, Stop date: 08/31/12 10:25:00 NovoLog FlexPen 4 unit, 0.04 mL, Route: SUB-Q, Drug 08/01/2012 08/03/2012 Discontinued form: SOLN, Before Meals & Bedtime, PRN Blood Glucose Results, Start date: 08/01/12 10:26:00, Duration: 30 day, Stop date: 08/31/12 10:25:00 NovoLog FlexPen 2 unit, 0.02 mL, Route: SUB-Q, Drug 08/01/2012 08/03/2012 Discontinued form: SOLN, Before Meals & Bedtime, PRN Blood Glucose Results, Start date: 08/01/12 10:26:00, Duration: 30 day, Stop date: 08/31/12 10:25:00 Levemir 15 unit, 0.15 mL, Route: SUB-Q, 08/03/2012 08/03/2012 Canceled Drug form: INJ, QPM, Dosing Weight 88.636, kg, Start date: 08/03/12 17:00:00, Duration: 30 day, Stop date: 09/01/12 17:00:00 lovastatin Substitution Allowed 07/28/2012 Ordered Levemir 10 unit, 0.1 mL, Route: SUB-Q, Drug 08/04/2012 08/03/2012 Canceled form: INJ, QAM, Dosing Weight 88.636, kg, Start date: 08/04/12 9:00:00, Duration: 30 day, Stop date: 09/02/12 9:00:00 Entereg 12 mg, 1 cap, Route: PO, Drug form: 07/31/2012 08/01/2012 Discontinued CAP, ONCALL, Dosing Weight 88.636, kg, Start date: 07/31/12 11:00:00 Entereg 12 mg, 1 cap, Route: PO, Drug form: 07/31/2012 07/31/2012 Completed CAP, ONCE, Start date: 07/31/12 11:00:00, Stop date: 07/31/12 11:00:00 Vicodin 5/500 oral 1 tab, PO, Q4H, PRN, 40 btl, for 08/03/2012 Ordered tablet pain, Substitution Allowed, Maintenance, TAB NS + KCL 20mEq/L 1,000 mL, Rate: 60 ml/hr, Infuse 07/31/2012 08/03/2012 Discontinued 1000ml (Premix) 1000 over: 16.7 hr, Route: IV, Dosing mL Weight 88.636 kg, Total Volume: 1,000, Start date: 07/31/12 15:10:00, Duration: 30 day, Stop date: 08/30/12 15:09:00 Entereg 12 mg, 1 cap, Route: PO, Drug form: 08/01/2012 08/03/2012 Discontinued CAP, BID, Dosing Weight 88.636, kg, Start date: 08/01/12 9:00:00, Duration: 14 doses or times, Stop date: 08/07/12 17:00:00 Lovenox 40 mg, 0.4 mL, Route: SUB-Q, Drug 08/01/2012 08/03/2012 Discontinued form: INJ, [id number], Dosing Weight 88.636, kg, Start date: 08/01/12 3:00:00, Duration: 30 day, Stop date: 08/30/12 3:00:00 insulin aspart 2 unit, 0.02 mL, Route: SUB-Q, Drug 07/31/2012 08/01/2012 Discontinued form: SOLN, TID-Before Meals, Dosing Weight 88.636, kg, PRN Blood Glucose Results, Start date: 07/31/12 15:10:00, Duration: 30 day, Stop date: 08/30/12 15:09:00 insulin aspart 1 unit, 0.01 mL, Route: SUB-Q, Drug 07/31/2012 08/01/2012 Discontinued form: SOLN, TID-Before Meals, Dosing Weight 88.636, kg, PRN Blood Glucose Results, Start date: 07/31/12 15:10:00, Duration: 30 day, Stop date: 08/30/12 15:09:00 hydromorphone 0.2 6 mg, 30 mL, Route: IV, BLADDER BLOWER Dose: 07/31/2012 08/02/2012 Discontinued mg/mL BLADDER BLOWER (6 mg/30 0.2 mg, BLADDER BLOWER Lockout: 10 minutes, mL) INJ Syringe 6 Continuous Basal Rate: 0 mg, 4 Hour mg Limit (In MG): 6, Drug Form: INJ, Continuous, Pain, Start date: 07/31/12 15:10:00, Duration: 30 day, Stop date: 08/30/12 15:09:00 insulin aspart 4 unit, 0.04 mL, Route: SUB-Q, Drug 07/31/2012 08/01/2012 Discontinued form: SOLN, TID-Before Meals, Dosing Weight 88.636, kg, PRN Blood Glucose Results, Start date: 07/31/12 15:10:00, Duration: 30 day, Stop date: 08/30/12 15:09:00 insulin aspart 3 unit, 0.03 mL, Route: SUB-Q, Drug 07/31/2012 08/01/2012 Discontinued form: SOLN, TID-Before Meals, Dosing Weight 88.636, kg, PRN Blood Glucose Results, Start date: 07/31/12 15:10:00, Duration: 30 day, Stop date: 08/30/12 15:09:00 insulin aspart 5 unit, 0.05 mL, Route: SUB-Q, Drug 07/31/2012 08/01/2012 Discontinued form: SOLN, TID-Before Meals, Dosing Weight 88.636, kg, PRN Blood Glucose Results, Start date: 07/31/12 15:10:00, Duration: 30 day, Stop date: 08/30/12 15:09:00 nalbuphine 2 mg, 0.1 mL, Route: IVP, Drug 07/31/2012 08/03/2012 Discontinued form: INJ, Q2H, Dosing Weight 88.636, kg, PRN Itching, Start date: 07/31/12 15:10:00, Duration: 5 doses or times, Stop date: Limited # of times naloxone 0.04 mg, 0.04 mL, Route: IVP, Drug 07/31/2012 08/03/2012 Discontinued form: INJ, Q2MIN, Dosing Weight 88.636, kg, PRN Narcotic Reversal, Start date: 07/31/12 15:10:00, Duration: 30 day, Stop date: 08/30/12 15:09:00 ondansetron 4 mg, 2 mL, Route: IVP, Drug form: 07/31/2012 08/03/2012 Discontinued INJ, Q6H, Dosing Weight 88.636, kg, PRN Nausea & Vomiting, Start date: 07/31/12 15:10:00, Duration: 30 day, Stop date: 08/30/12 15:09:00 diphenhydrAMINE 25 mg, 1 tab, Route: PO, Drug form: 07/31/2012 08/03/2012 Discontinued TAB, Bedtime, Dosing Weight 88.636, kg, PRN Insomnia, Start date: 07/31/12 15:10:00, Duration: 30 day, Stop date: 08/30/12 15:09:00 acetaminophen 650 mg, 2 tab, Route: PO, Drug 07/31/2012 08/03/2012 Discontinued form: TAB, Q4H, Dosing Weight 88.636, kg, PRN Pain Score 1-3, Start date: 07/31/12 15:10:00, Duration: 30 day, Stop date: 08/30/12 15:09:00 famotidine 20 mg, 2 mL, Route: IVP, Drug form: 07/31/2012 08/03/2012 Discontinued INJ, Q12H, Dosing Weight 88.636, kg, Start date: 07/31/12 21:00:00, Duration: 30 day, Stop date: 08/30/12 9:00:00 losartan 25 mg, 1 tab, Route: PO, Drug form: 08/02/2012 08/03/2012 Discontinued TAB, Daily, Dosing Weight 88.636, kg, Start date: 08/02/12 11:00:00, Duration: 30 day, Stop date: 09/01/12 9:00:00 Levemir 10 unit, 0.1 mL, Route: SUB-Q, Drug 08/02/2012 08/03/2012 Discontinued form: INJ, Q12H, Dosing Weight 88.636, kg, Start date: 08/02/12 9:00:00, Duration: 30 day, Stop date: 08/31/12 21:00:00 [place] 5/325 oral 1 tab, Route: PO, Drug Form: TAB, 08/02/2012 08/02/2012 Deleted tablet Dosing Weight 88.636, kg, Q4H, PRN Pain, Start date: 08/02/12 9:03:00, Duration: 30 day, Stop date: 09/01/12 9:02:00 acetaminophen-hydroc 1 tab, Route: PO, Drug Form: TAB, 08/01/2012 08/03/2012 Discontinued odone 325 mg-5 mg Q4H, PRN Pain, Start date: 08/01/12 oral tablet 19:19:00, Duration: 30 day, Stop date: 08/31/12 19:18:00 levothyroxine 125 microgram, 1 tab, Route: PO, 08/04/2012 08/03/2012 Canceled Drug form: TAB, Q630AM, Dosing Weight 88.636, kg, Start date: 08/04/12 6:30:00, Duration: 30 day, Stop date: 09/02/12 6:30:00 Invanz 1 gm, Route: IVPB, ONCE, Dosing 07/31/2012 07/31/2012 Completed Weight 88.636, kg, Start date: 07/31/12 10:47:00, Stop date: 07/31/12 10:47:00 Dilaudid 1 mg, 1 mL, Route: IV, Drug form: 08/02/2012 08/03/2012 Discontinued SOLN, Q1H, Dosing Weight 88.636, kg, PRN as needed for pain, Start date: 08/02/12 9:04:00, Duration: 30 day, Stop date: 09/01/12 9:03:00 Lactated Ringers 1,000 mL, Rate: 50 ml/hr, Infuse 07/31/2012 07/31/2012 Discontinued Injection IV 1000 mL over: 20 hr, Route: IV, Dosing Weight 88.636 kg, Total Volume: 1,000, Start date: 07/31/12 15:17:00, Duration: 30 day, Stop date: 08/30/12 15:16:00 naloxone 0.04 mg, Route: IVP, Q2MIN, Dosing 07/31/2012 07/31/2012 Deleted Weight 88.636, kg, PRN Narcotic Reversal, Start date: 07/31/12 15:17:00, Duration: 8 doses or times, Stop date: Limited # of times flumazenil 0.2 mg, 2 mL, Route: IVP, Drug 07/31/2012 07/31/2012 Discontinued form: INJ, PRN, Dosing Weight 88.636, kg, PRN Benzodiazepine Reversal, Initial dose, Start date: 07/31/12 15:17:00, Duration: 30 day, Stop date: 08/30/12 15:16:00 hydrALAZINE 5 mg, 0.25 mL, Route: IVP, Drug 07/31/2012 07/31/2012 Discontinued form: INJ, Q5Min, Dosing Weight 88.636, kg, PRN Elevated BP, Start date: 07/31/12 15:17:00, Duration: 4 doses or times, Stop date: Limited # of times labetalol 5 mg, 1 mL, Route: IVP, Drug form: 07/31/2012 07/31/2012 Discontinued INJ, Q5Min, Dosing Weight 88.636, kg, PRN Elevated BP, Start date: 07/31/12 15:17:00, Duration: 5 doses or times, Stop date: Limited # of times ondansetron 4 mg, Route: IVP, ONCE, Dosing 07/31/2012 07/31/2012 Deleted Weight 88.636, kg, PRN Nausea & Vomiting, Start date: 07/31/12 15:17:00 Lactated Ringers 1,000 mL, Rate: 25 ml/hr, Infuse 07/31/2012 07/31/2012 Discontinued Injection IV 1,000 over: 40 hr, Route: IV, kg, Total mL Volume: 1,000, Start date: 07/31/12 10:46:00, Duration: 30 day, Stop date: 08/30/12 10:45:00 Vital Signs Most recent to oldest [Reference Range]: 1 2 3 Height 157.48 cm (07/28/2012 08:14:00) Temperature Oral [96.4-99.1 DegF] 98 DegF (08/03/2012 12:00:00) 97.8 DegF (08/03/2012 08:00:00) 98.0 DegF (08/03/2012 03:00:00) Systolic Blood Pressure [90-140 mmHg] 126 mmHg (08/03/2012 12:00:00) 131 mmHg (08/03/2012 08:00:00) 145 mmHg *HI* (08/03/2012 03:00:00) Diastolic Blood Pressure [60-90 mmHg] 75 mmHg (08/03/2012 12:00:00) 73 mmHg (08/03/2012 08:00:00) 74 mmHg (08/03/2012 03:00:00) Respiratory Rate [14-20 BRMIN] 16 BRMIN (08/03/2012 12:00:00) 16 BRMIN (08/03/2012 08:00:00) 20 BRMIN (08/03/2012 03:00:00) Peripheral Pulse Rate [60-100 bpm] 74 bpm (08/03/2012 12:00:00) 78 bpm (08/03/2012 08:00:00) 74 bpm (08/03/2012 03:00:00) Weight 88.636 kg (07/28/2012 08:14:00) Results BEDSIDE GLUCOSE TESTING Most recent to oldest [Reference Range]: 1 2 3 Gluc POC Lifscn [70-99 mg/dL] 237 mg/dL 1 *HI* (08/03/2012 11:56:00) 228 mg/dL 2 *HI* (08/03/2012 08:28:00) 178 mg/dL 3 *HI* (08/02/2012 21:35:00) Comment1 Assess patient *NA* (08/03/2012 11:56:00) Assess patient *NA* (08/03/2012 08:28:00) Notify RN/MD *NA* (08/02/2012 11:25:00) 1Interpretive Data: Upper Reportable Limit: 200 mg/dL. 2Interpretive Data: Upper Reportable Limit: 200 mg/dL. 3Interpretive Data: Upper Reportable Limit: 200 mg/dL. URINALYSIS Most recent to oldest [Reference Range]: 1 2 3 UA Turbidity [Clear] Clear (07/28/2012 08:25:00) UA Color Ltyellow *NA* (07/28/2012 08:25:00) UA pH [5.0-8.0] 5.0 (07/28/2012 08:25:00) UA Spec Grav [<=1.030] 1.008 (07/28/2012 08:25:00) UA Glucose [Negative mg/dL] Negative mg/dL *NA* (07/28/2012 08:25:00) UA Blood [Negative] Negative (07/28/2012 08:25:00) UA Ketones [Negative mg/dL] Negative mg/dL *NA* (07/28/2012 08:25:00) UA Protein [Negative mg/dL] Negative mg/dL (07/28/2012 08:25:00) UA Urobilinogen [0.1-1.0 mg/dL] <=1.0 mg/dL *NA* (07/28/2012 08:25:00) UA Bili [Negative] Negative *NA* (07/28/2012 08:25:00) UA Leuk Est [Negative] Negative (07/28/2012 08:25:00) UA Nitrite [Negative] Negative (07/28/2012 08:25:00) UA WBC [0-5 /HPF] <1 /HPF (07/28/2012 08:25:00) UA RBC [0-2 /HPF] <1 /HPF (07/28/2012 08:25:00) UA Bacteria [None Seen /HPF] Occasional /HPF *NA* (07/28/2012 08:25:00) UA Sq Epi [Few /LPF] Occasional /LPF *NA* (07/28/2012 08:25:00) BLOOD BANK RESULTS Most recent to oldest [Reference Range]: 1 2 3 ABO/Rh B NEG *Unknown* (07/28/2012 09:30:00) Antibody Scrn Negative (07/28/2012 09:30:00) CHEMISTRY Most recent to oldest [Reference Range]: 1 2 3 Sodium Lvl [135-145 mEq/L] 137 mEq/L (08/01/2012 04:27:00) 137 mEq/L (07/28/2012 09:30:00) Potassium Lvl [3.5-5.1 mEq/L] 4.7 mEq/L (08/01/2012 04:27:00) 4.6 mEq/L (07/28/2012 09:30:00) Chloride Lvl [95-109 mEq/L] 102 mEq/L (08/01/2012 04:27:00) 102 mEq/L (07/28/2012 09:30:00) CO2 [24-32 mEq/L] 25 mEq/L (08/01/2012 04:27:00) 23 mEq/L *LOW* (07/28/2012 09:30:00) AGAP [10.0-20.0 mEq/L] 14.7 mEq/L (08/01/2012 04:27:00) 16.6 mEq/L (07/28/2012 09:30:00) Creatinine Lvl [0.5-1.4 mg/dL] 0.8 mg/dL (08/01/2012 04:27:00) 0.8 mg/dL (07/28/2012 09:30:00) BUN [7-22 mg/dL] 11 mg/dL (08/01/2012 04:27:00) 14 mg/dL (07/28/2012 09:30:00) B/C Ratio [6-25] 18 (07/28/2012 09:30:00) Glucose Lvl [70-99 mg/dL] 219 mg/dL 4 *HI* (08/01/2012 04:27:00) 195 mg/dL 5 *HI* (07/28/2012 09:30:00) Total Protein [6.4-8.4 g/dL] 7.0 g/dL (07/28/2012 09:30:00) Albumin Lvl [3.5-5.0 g/dL] 3.9 g/dL (07/28/2012 09:30:00) Globulin [2.0-4.0 g/dL] 3.1 g/dL (07/28/2012:30:00) A/G Ratio [0.7-1.6] 1.3 (07/28/2012 09:30:00) Calcium Lvl [8.5-10.5 mg/dL] 8.1 mg/dL *LOW* (08/01/2012 04:27:00) 9.0 mg/dL (07/28/2012:30:00) Phosphorus [2.5-4.5 mg/dL] 2.8 mg/dL (08/01/2012 04:27:00) Magnesium Lvl [1.8-2.4 mg/dL] 1.1 mg/dL *LOW* (08/01/2012 04:27:00) ALT [0-65 unit/L] 21 unit/L (07/28/2012:30:00) AST [0-37 unit/L] 12 unit/L (07/28/2012 09:30:00) Alk Phos [39-136 unit/L] 67 unit/L (07/28/2012 09:30:00) Bili Total [0.2-1.3 mg/dL] 0.3 mg/dL (07/28/2012 09:30:00) 4Interpretive Data: Adult reference range values reflect the clinical guidelines of the [place] [employer]. 5Interpretive Data: Adult reference range values reflect the clinical guidelines of the [place] [employer]. HEMATOLOGY Most recent to oldest [Reference Range]: 1 2 3 WBC [3.7-10.4 K/CMM] 7.7 K/CMM (07/28/2012 09:30:00) RBC [4.20-5.40 M/CMM] 3.88 M/CMM *LOW* (07/28/2012 09:30:00) Hgb [12.0-16.0 g/dL] 9.9 g/dL *LOW* (08/01/2012 04:27:00) 11.3 g/dL *LOW* (07/28/2012 09:30:00) Hct [36.0-48.0 %] 29.7 % *LOW* (08/01/2012 04:27:00) 34.7 % *LOW* (07/28/2012 09:30:00) MCV [81.0-99.0 fL] 89.4 fL (07/28/2012 09:30:00) MCH [27.0-31.0 pg] 29.2 pg (07/28/2012:30:00) MCHC [32.0-36.0 g/dL] 32.6 g/dL (07/28/2012 09:30:00) RDW [11.5-14.5 %] 15.4 % *HI* (07/28/2012 09:30:00) Platelet [133-450 K/CMM] 207 K/CMM (07/28/2012 09:30:00) MPV [7.4-10.4 fL] 8.6 fL (07/28/2012 09:30:00) Segs [45.0-75.0 %] 61.0 % (07/28/2012 09:30:00) Lymphocytes [20.0-40.0 %] 32.3 % (07/28/2012 09:30:00) Monocytes [2.0-12.0 %] 4.6 % (07/28/2012 09:30:00) Eosinophils [0.0-4.0 %] 1.9 % (07/28/2012 09:30:00) Basophils [0.0-1.0 %] 0.2 % (07/28/2012 09:30:00) Segs-Bands # [1.5-8.1 K/CMM] 4.7 K/CMM (07/28/2012 09:30:00) Lymphocytes # [1.0-5.5 K/CMM] 2.5 K/CMM (07/28/2012 09:30:00) Monocytes # [0.0-0.8 K/CMM] 0.4 K/CMM (07/28/2012 09:30:00) Eosinophils # [0.0-0.5 K/CMM] 0.1 K/CMM (07/28/2012 09:30:00) Basophils # [0.0-0.2 K/CMM] 0.0 K/CMM (07/28/2012 09:30:00) PT [12.0-14.7 seconds] 13.9 seconds (07/28/2012 09:30:00) INR [0.85-1.17] 1.05 6 (07/28/2012 09:30:00) PTT [22.9-35.8 seconds] 30.6 seconds 7 (07/28/2012 09:30:00) 6Interpretive Data: RECOMMENDED RANGES FOR PROTIME INR: 2.0-3.0 for most medical and surgical thromboembolic states. 2.5-3.5 for artificial heart valves and recurrent embolism. INR SHOULD BE USED ONLY FOR PATIENTS ON STABLE ANTICOAGULANT THERAPY. 7Interpretive Data: Heparin Therapeutic Range: 57 - 92 Seconds
--- OUTSIDE RECORDS SUMMARY | 2018-09-19 11:21 | XMS REPORT | Summary of Care ---
Author Author [facility] Organization [facility] Address Unknown Phone Unavailable Encounter ARCHIE Chung(FIN) [id number] Date(s): 03/28/18 - 03/28/18 [facility] [address], [address] [place] [address]- [phone] Discharge Disposition: Home or Self Care Attending Physician: Karlie Montalvo MD Vital Signs Most recent to 1 oldest [Reference Range]: Height 157.48 cm (03/28/18 10:29 AM) Temperature Oral 98.0 DegF [96.4-99.1 DegF] (03/28/18 10:29 AM) Blood Pressure 134/69 mmHg [90-140/60-90 mmHg] (03/28/18 10:29 AM) Respiratory Rate 14 BRMIN [14-20 BRMIN] (03/28/18 10:29 AM) Peripheral Pulse 79 bpm Rate [60-100 bpm] (03/28/18 10:29 AM) Weight 88.636 kg (03/28/18 10:29 AM) Body Mass Index 35.74 m2 (03/28/18 10:29 AM) Problem List Condition Effective Dates Status Health Status Informant Anemia(Confirmed) Active Benign hypertension Active with chronic kidney disease, stage III(Confirmed) Yeast Active vaginitis(Confirmed) Cataract(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(Confirmed) History of < 12/09/15 Resolved fall(Confirmed) 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/06/13 - 09/26/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 neoplasm of colon1 Hyperlipidemia(Confi Active rmed) Hypothyroidism(Confi 01/21/15 Active rmed)2, 3 Left knee Active pain(Confirmed) Pulmonary Active nodule(Confirmed) Non-compliant Active patient(Confirmed) Obesity(Confirmed)4 08/16/14 Active Osteoporosis5, 6 12/24/14 Active Peripheral Active edema(Confirmed) Sleep Active apnea(Confirmed) Type 2 diabetes Active mellitus with polyneuropathy(Confi rmed) Type 2 diabetes Active mellitus with stage 3 chronic kidney disease(Confirmed) Type 2 diabetes Active mellitus with hyperglycemia(Confir med) Unsteady gait7 12/19/13 Active Varicose veins of 05/16/13 Active lower extremity8 Vitamin D Active deficiency(Confirmed ) 1Data migrated from [employer] on 04/21/15. 2Data migrated from [employer] on 05/28/15. 3Data migrated from [employer] on 04/22/15. 4Data migrated from [employer] on 04/21/15. 5Data migrated from [employer] on 05/28/15. 6Data migrated from [employer] on 04/22/15. 7Data migrated from [employer] on 04/21/15. 8Data migrated from [employer] on 04/21/15. Allergies, Adverse Reactions, Alerts Substance Reaction Severity Status NKDA Active Medications DexThe ADEX G4 [place] System with Share Continuous Blood Glucose Monitor 1 ea, MISC, ONCE, # 1 ea, Insulin dependent, Does not use insulin pump, Last DM eval date 03/28/18, 0 Refill(s) Start Date: 03/28/18 Status: Ordered fluconazole 150 mg oral tablet 150 mg=1 tab, PO, ONCE, # 1 tab, 1 Refill(s), [facility]acy: [facility] Start Date: 03/28/18 Status: Ordered naproxen 500 mg oral tablet 500 mg=1 tab, PO, BID, with food, X 14 day, # 60 tab, 1 Refill(s), [facility]acy[facility] Start Date: 03/28/18 Stop Date: 04/25/18 Status: Ordered Results No data available for [...] reaction noted. 3Result Comment: fluzone high dose [[id number]]. Migrated from OBS ; Data migrated from [employer] on 12/23/2015. 4Result Comment: pneumovax 23 [cvx33]. Migrated from OBS VIS: Pneumovax 23: 08-26-09 ; Data migrated from [employer] on 12/23/2015. Procedures Procedure Date Related Diagnosis [...] Tobacco Frequency Quit smoking 1989; entered on: 03/28/18 1None Assessment and Plan No data available for this section
--- OUTSIDE RECORDS SUMMARY | 2018-09-19 11:21 | XMS REPORT | CCD ---
Author Author Auto Generated Organization [facility] Address Unknown Phone Unavailable Care Team Providers Care Business Machine Operator Name Role Phone Dulce Berg Colin CP Allergies, Adverse Reactions, Alerts Substance Reaction Status NKDA Active Problem List Condition Effective Dates Status Diabetes mellitus Resolved Ex-smoker Active Hypertension Active SOB - Shortness of breath Active Vital Signs Most recent to oldest [Reference Range]: 1 2 Height 154.94 cm (11/30/2013 09:01:00) Temperature Oral [96.4-99.1 DegF] 98.9 DegF (11/30/2013:20:00) 98.3 DegF (11/30/2013 09:01:00) Systolic Blood Pressure [90-140 mmHg] 126 mmHg (11/30/2013 10:20:00) 136 mmHg (11/30/2013 09:01:00) Diastolic Blood Pressure [60-90 mmHg] 50 mmHg *LOW* (11/30/2013:20:00) 77 mmHg (11/30/2013 09:01:00) Respiratory Rate [14-20 BRMIN] 18 BRMIN (11/30/2013:20:00) 16 BRMIN (11/30/2013 09:01:00) Peripheral Pulse Rate [60-100 bpm] 74 bpm (11/30/2013:20:00) 73 bpm (11/30/2013 09:01:00) Weight 90.909 kg (11/30/2013 09:01:00) Results BEDSIDE GLUCOSE TESTING Most recent to oldest [Reference Range]: 1 Glucose POC [70-99 mg/dL] 181 mg/dL 1 *HI* (11/30/2013 09:00:00) 1Interpretive Data: Upper Reportable Limit: 200 mg/dL.
--- OUTSIDE RECORDS SUMMARY | 2018-09-19 11:22 | XMS REPORT | Summary of Care ---
Author Author [facility] Primary Care [facility] Organization [facility] Address Unknown Phone Unavailable Encounter ARCHIE Chung(FIN) [id number] Date(s): 04/07/18 - 04/08/18 [facility] [address], [address] [place] [address]- [phone] Vital Signs No data available for this section Problem List Condition Effective Dates Status Health Status Informant Anemia(Confirmed) Active Benign hypertension Active with chronic kidney disease, stage III(Confirmed) Yeast Active vaginitis(Confirmed) Cataract(Confirmed) Active intermediate frame tender current Active use of insulin(Confirmed) History of [...] [employer] on 04/21/15. 8Data migrated from [employer] on 04/21/15. Allergies, Adverse Reactions, Alerts Substance [...] reaction noted. 3Result Comment: fluzone high dose [[id number]]. Migrated from OBS ; Data migrated from [employer] on 12/23/2015. 4Result Comment: pneumovax 23 [cvx33]. Migrated from OBS VIS: Pneumovax 23: 08-26-09 ; Data migrated from [employer] on 12/23/2015. Procedures Procedure Date Related Diagnosis [...]
--- OUTSIDE RECORDS SUMMARY | 2018-09-19 11:22 | XMS REPORT | Summary of Care ---
Author Author [facility] Primary Care [facility] Organization [facility] Address Unknown Phone Unavailable Encounter ARCHIE Chung(FIN) [id number] Date(s): 04/27/18 - 04/28/18 [facility] [address], [address] [place] [address]- [phone] Vital Signs No data available for this section Problem List Condition Effective Dates Status Health Status Informant Anemia(Confirmed) Active Benign hypertension Active with chronic kidney disease, stage III(Confirmed) Yeast Active vaginitis(Confirmed) Cataract(Confirmed) Active intermediate current Active use of insulin(Confirmed) History of [...] [employer] on 04/21/15. 8Data migrated from [employer] on 04/21/15. Allergies, Adverse Reactions, Alerts Substance Reaction Severity Status NKDA Active Medications atorvastatin 20 mg oral tablet See Instructions, TAKE ONE TABLET BY MOUTH AT BEDTIME, # 90 tab, 0 Refill(s), Ph armacy: [facility]/pharmacy #[id number] Start Date: 04/27/18 Status: Ordered insulin glargine 100 units/mL subcutaneous solution 75 unit, SUB-Q, QAM, # 3 mL, 5 Refill(s), Pharmacy: [facility]/pharmacy #[id number] Start Date: 04/27/18 Stop Date: 10/19/19 Status: Ordered levothyroxine 175 mcg (0.175 mg) oral tablet 175 microgram=1 tab, PO, Daily, # 90 tab, 0 Refill(s), [id number] Start Date: 04/27/18 Status: Ordered losartan 100 mg oral tablet 100 mg=1 tab, PO, Daily, # 90 tab, 0 Refill(s), Pharmacy: [facility]/pharmacy #[id number] Start Date: 04/27/18 Stop Date: 07/26/18 Status: Ordered metFORMIN 1000 mg oral tablet 1,000 mg=1 tab, PO, BID, X 90 day, # 180 tab, 0 Refill(s), Pharmacy: [facility]/pharmac y #[id number] Start Date: 04/27/18 Stop Date: 07/26/18 Status: Ordered ranitidine 150 mg oral tablet See Instructions, TAKE ONE TABLET BY MOUTH DAILY, # 90 tab, 0 Refill(s), Pharmac y: [facility]/pharmacy #[id number] Start Date: 04/27/18 Status: Ordered Results No data available for [...] reaction noted. 3Result Comment: fluzone high dose [[id number]]. Migrated from OBS ; Data migrated from [employer] on 12/23/2015. 4Result Comment: pneumovax 23 [cvx33]. Migrated from OBS VIS: Pneumovax 23: 08-26-09 ; Data migrated from [employer] on 12/23/2015. Procedures Procedure Date Related Diagnosis [...]
--- OUTSIDE RECORDS SUMMARY | 2018-09-19 11:22 | XMS REPORT | Summary of Care ---
Author Author [facility] Primary Care 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 8Data migrated from [employer] on 04/21/15. Allergies, Adverse Reactions, Alerts Substance Reaction Severity Status NKDA Active Medications levothyroxine 175 mcg (0.175 mg) oral tablet 175 microgram=1 tab, PO, Daily, # 90 tab, 1 Refill(s), [facility] Start Date: 05/01/18 Status: Ordered Results No data available for [...] reaction noted. 3Result Comment: fluzone high dose [[id number]]. Migrated from OBS ; Data migrated from [employer] on 12/23/2015. 4Result Comment: pneumovax 23 [cvx33]. Migrated from OBS VIS: Pneumovax 23: 10 ; Data migrated from [employer] on 12/23/2015. Procedures Procedure Date Related Diagnosis [...]
--- OUTSIDE RECORDS SUMMARY | 2018-09-19 11:22 | XMS REPORT ---
Author Author [facility] Address Unknown Phone Unavailable Care Team Providers Care Base Engineer Name Role Phone Unavailable Unavailable Payers Payer Name Policy Type Policy Number Effective Date Expiration Date Problems This patient has no known problems. Allergies, Adverse Reactions, Alerts Allergy Name Allergy Type Status Severity Reaction(s) Onset Date Inactive Date Treating Clinician Comments No Known Allergies DA Active U 2013-11-28 00:00:00 Medications This patient has no known medications.
--- OUTSIDE RECORDS SUMMARY | 2018-09-19 11:22 | XMS REPORT | Summary of Care ---
Author Author [facility] Organization [facility] Address Unknown Phone Unavailable Encounter ARCHIE Chung(VON) [id number] Date(s): 12/27/17 - 12/27/17 [facility] [address], [address] [place] [address]- [phone] Discharge Disposition: Home or Self Care Attending [...] stage III(Confirmed) Yeast Active vaginitis(Confirmed) Cataract(Confirmed) Active FDC current Active use of insulin(Confirmed) History of [...] Humalog Kwik Pen 100 units/mL subcutaneous injection 15 units, SUB-Q, BID-Meals, # 3 mL, 5 Refill(s), [facility] Start Date: 12/27/17 Stop Date: 06/20/19 Status: Ordered hydrocortisone topical 2.5% cream 1 appl, TOP, BID, X 14 day, # 30 gm, 2 Refill(s), [facility]acy[facility] Start Date: 01/25/18 Stop Date: 03/08/18 Status: Completed insulin glargine 100 units/mL subcutaneous solution 75 [...] reaction noted. 3Result Comment: fluzone high dose [[id number]]. Migrated from OBS ; Data migrated from [employer] on 12/23/2015. 4Result Comment: pneumovax 23 [cvx33]. Migrated from OBS VIS: Pneumovax 23: 08-26-09 ; Data migrated from [employer] on 12/23/2015. Procedures Procedure Date Related Diagnosis [...]
--- OUTSIDE RECORDS SUMMARY | 2018-09-19 11:22 | XMS REPORT | Summary of Care ---
Author Author [facility] Primary Care [facility] Organization [facility] Address Unknown Phone Unavailable Encounter ARCHIE Chung(FIN) [id number] Date(s): 04/07/18 - 04/08/18 [facility] [address], [address] [place] [address]- [phone] Vital Signs No data available for this section Problem List Condition Effective Dates Status Health Status Informant Anemia(Confirmed) Active Benign hypertension Active with chronic kidney disease, stage III(Confirmed) Yeast Active vaginitis(Confirmed) Cataract(Confirmed) 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 8Data migrated from [employer] on 04/21/15. Allergies, Adverse Reactions, Alerts Substance [...] reaction noted. 3Result Comment: fluzone high dose [[id number]]. Migrated from OBS ; Data migrated from [employer] on 12/23/2015. 4Result Comment: pneumovax 23 [cvx33]. Migrated from OBS VIS: Pneumovax 23: 08-26-09 ; Data migrated from [employer] on 12/23/2015. Procedures Procedure Date Related Diagnosis [...]
--- OUTSIDE RECORDS SUMMARY | 2018-09-19 11:22 | XMS REPORT | Summary of Care ---
Author Author [facility] Primary Care [facility] Organization [facility] Address Unknown Phone Unavailable Encounter ARCHIE Chung(FIN) [id number] Date(s): 04/24/18 - 04/25/18 [facility] [address], [address] [place] [address]- [phone] Vital Signs No data available for this section Problem List Condition Effective Dates Status Health Status Informant Anemia(Confirmed) Active Benign hypertension Active with chronic kidney disease, stage III(Confirmed) Yeast Active vaginitis(Confirmed) Cataract(Confirmed) Active [facility] current Active use of insulin(Confirmed) History of [...] [employer] on 04/21/15. 8Data migrated from [employer] on 04/21/15. Allergies, Adverse Reactions, Alerts Substance [...] reaction noted. 3Result Comment: fluzone high dose [[id number]]. Migrated from OBS ; Data migrated from [employer] on 12/23/2015. 4Result Comment: pneumovax 23 [cvx33]. Migrated from OBS VIS: Pneumovax 23: 08-26-09 ; Data migrated from [employer] on 12/23/2015. Procedures Procedure Date Related Diagnosis [...]
[2018-09-19 13:45] VITALS: BP 130/70
== END | disposition home or self-care (01) ==
LOC: OR 11:13
PROVIDERS: ATTEND Ophthalmology
DX: H25.12 Age-related nuclear cataract, left eye (principal); E78.5 Hyperlipidemia, unspecified; E11.22 Type 2 diabetes mellitus with diabetic chronic kidney disease; I12.9 Hypertensive chronic kidney disease with stage 1 through stage 4 chronic kidney disease, or unspecified chronic kidney disease; N18.9 Chronic kidney disease, unspecified; G62.9 Polyneuropathy, unspecified; J45.909 Unspecified asthma, uncomplicated; E03.9 Hypothyroidism, unspecified; I83.90 Asymptomatic varicose veins of unspecified lower extremity; Z79.82 Long term (current) use of aspirin; Z79.4 Long term (current) use of insulin; Z86.2 Personal history of diseases of the blood and blood-forming organs and certain disorders involving the immune mechanism; Z87.891 Personal history of nicotine dependence
CPT/HCPCS: 36415; 66984; 82948; J2250; V2632

== ENCOUNTER → 2018-10-17 | Day surgery (SDC) | payer MEDICARE, OTHER ==
--- OUTSIDE RECORDS SUMMARY | 2018-10-17 08:30 | XMS REPORT | Continuity of Care Document ---
Author Author [facility] Interface Address Unknown Phone Unavailable Problems Problem Status Onset Date Classification Date Reported Comments Source EVAL POV Active 07/10/2018 [facility] Z12.31 - ENCNTR SCREEN MAMMOGRAM FOR MA Active 05/26/2017 CARL Teea M79.604 - PAIN IN RIGHT LEG Active 01/14/2016 [facility] [place] SCREENING Active 12/17/2015 [facility] M81.0 - AGE-RELATED OSTEOPOROSIS W/O C Active 12/09/2015 [facility] [place] History of fall Resolved 12/09/2015 Problem 05/05/2018 [facility] UNK Active 02/17/2015 [facility] V10.05 Active 02/17/2015 [facility] 789.01 ABD PAIN Active 01/28/2015 [facility] OSTEOPOROSIS 733.00 Active 01/24/2015 [facility] Hypothyroidism<sup>2, 3</sup> Active 01/21/2015 Problem 05/05/2018 Data migrated from [employer] on 04/22/15. [facility] Hypothyroidism<sup>3, 4</sup> Active 01/21/2015 Problem 03/04/2018 Data migrated from [employer] on 04/22/15. [facility] Osteoporosis<sup>5, 6</sup> Active 12/24/2014 Problem [...] Diagnosis: insect bite-infected, abscess back 02/07/2014 02/09/2014 [facility] BACK PAIN Active 02/07/2014 [facility] 518.89 Active 01/23/2014 [facility] V76.10 Active 12/28/2013 [facility] Unsteady gait<sup>7</sup> Active 12/19/2013 Problem 05/05/2018 Data migrated from [employer] on 04/21/15. [facility] Unsteady gait<sup>8</sup> Active 12/19/2013 Problem 03/04/2018 Data migrated from [employer] on 04/21/15. [facility] LOW SUGAR Active 11/30/2013 [facility] Chronic kidney disease stage 3<sup>1</sup> Active [...] [facility] ROUTINE/MENOPAUSAL Active 02/01/2013 [facility] 794.31ABNORMAL EKG DR PULIDO WILL READ* LEXISCAN Active 07/21/2012 [facility] CECAL MASS Active 06/27/2012 [facility] ABDOMINAL PAIN Active 05/15/2012 [facility] ABD PAIN 787.07/793.4/285.9 Active 05/15/2012 [facility] ABD PAIN, CHEST PAIN, SHORTNESS OF BREATH Active 03/27/2012 [facility] OTHER Active 03/06/2012 [facility] Acute constipation Resolved Problem 06/23/2017 [facility] Bilateral cataracts Active Problem 06/23/2017 [facility] Screening for breast cancer Resolved Problem 06/23/2017 [facility] Ángela vaginitis Active Problem 06/23/2017 [facility] Chronic folliculitis Resolved Problem 06/23/2017 [facility] Leg cramps Active Problem 06/23/2017 [facility] Daytime somnolence Active Problem 06/23/2017 [facility] Hypercholesterolemia Active Problem 06/23/2017 [facility] Medicare annual wellness visit, subsequent Resolved Problem 06/23/2017 [facility] Pain and swelling of right lower leg Active Problem 06/23/2017 [facility] 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, uncontrolled, without macular edema, with retinopathy Active Problem 06/23/2017 [facility] Anemia Active Problem 05/05/2018 [facility] Benign hypertension with chronic kidney disease, stage III Active Problem 05/05/2018 [facility] Yeast vaginitis Active Problem 05/05/2018 [facility] Cataract Active Problem 05/05/2018 [facility] 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 Problem 05/05/2018 [facility] [place] Hyperlipidemia Active Problem 05/05/2018 [facility] Left knee pain Active Problem 05/05/2018 [facility] Pulmonary nodule Active Problem 05/05/2018 [facility] Non-compliant patient Active Problem 05/05/2018 [facility] Peripheral edema Active Problem 05/05/2018 [facility] Sleep apnea Active Problem 05/05/2018 [facility] [place] Type 2 diabetes mellitus with polyneuropathy Active Problem 05/05/2018 [facility] [place] Type 2 diabetes mellitus with stage 3 chronic kidney disease Active Problem 05/05/2018 [facility] [place] Type 2 diabetes mellitus with hyperglycemia Active Problem 05/05/2018 [facility] [place] Vitamin D deficiency Active Problem 05/05/2018 [facility] Diabetes mellitus Active Problem 03/09/2015 [facility] Ex-smoker Active Problem 03/09/2015 [facility] Hypertension Active Problem 03/09/2015 [facility] SOB - Shortness of breath Active Problem 03/09/2015 [facility] Ex-smoker Active Problem 02/18/2013 [facility] Hypertension Active Problem 02/18/2013 [facility] SOB - Shortness of breath Active Problem 02/18/2013 [facility] Back pain Active Problem 03/09/2015 [facility] Cancer of colon<sup>1</sup> Active Problem 03/09/2015 1Previous history [facility] Neuropathy Active Problem 03/09/2015 [facility] Pain of left leg Active Problem 12/18/2015 [facility] ABDMNAL PAIN UNSPCF SITE Active [facility] CHEST PAIN NOS Active [facility] SHORTNESS OF BREATH Active [facility] PNEUMONIA Active [facility] PNEUMONIA, ORGANISM NOS Active [facility] ABDMNAL PAIN GENERALIZED Active [facility] NONSP ABN FIND-GI TRACT Active [facility] ANEMIA NOS Active [facility] PERITONEAL DISORDER NEC Active [facility] PARAPLEGIA, UNSPECIFIED Active [facility] Medications Medication Details Route Status Patient Instructions Ordering Provider Order Date Source levothyroxine 175 mcg (0.175 mg) oral tablet 175 microgram=1 tab, PO, Daily, # 90 tab, 1 Refill(s), [facility]acy[facility] Active 05/01/2018 [facility] Metformin hydrochloride 1000 MG Oral Tablet 1,000 mg=1 tab, PO, BID, X 90 day, # 180 tab, 0 Refill(s), Pharmacy: [facility]/pharmacy #[id number] Active 04/27/2018 [facility] Insulin Glargine 100 UNT/ML Injectable Solution 75 unit, SUB-Q, QAM, # 3 mL, 5 Refill(s), Pharmacy: [facility]/pharmacy #[id number] Active 04/27/2018 [facility] atorvastatin 20 mg oral tablet See Instructions, TAKE ONE TABLET BY MOUTH AT BEDTIME, # 90 tab, 0 Refill(s), Pharmacy: [facility]acy [facility][id number] Active 04/27/2018 [facility] losartan 100 mg oral tablet 100 mg=1 tab, PO, Daily, # 90 tab, 0 Refill(s), Pharmacy: [facility]/pharmacy #[id number] Active 04/27/2018 [facility] levothyroxine 175 mcg (0.175 mg) oral tablet 175 microgram=1 tab, PO, Daily, # 90 tab, 0 Refill(s), Pharmacy: [facility]acy [id number] Active 04/27/2018 [facility] Ranitidine 150 MG Oral Tablet See Instructions, TAKE ONE TABLET BY MOUTH DAILY, # 90 tab, 0 Refill(s), Pharmacy: [facility]/pharmacy #[id number] Active 04/27/2018 [facility] Dexcom G4 [place] [employer] with Share Continuous Blood Glucose Monitor [...] # 30 tab, 0 Refill(s) Active 03/06/2015 [facility] Sodium Chloride 0.154 MEQ/ML Injectable Solution 1,000 mL, Rate: 25 ml/hr, Infuse over: 40 hr, Route: IV, Dosing Weight 82.386 kg, Total Volume: 1,000, Start date: 03/06/15 8:08:00, Duration: 30 day, Stop date: 04/05/15 8:07:00 Inactive 03/06/2015 [facility] 3 ML Insulin Lispro 100 UNT/ML Prefilled Syringe [Humalog] 20 unit, SUB-Q, BID, # 3 mL, 0 Refill(s) Active 02/26/2015 [facility] 3 ML insulin detemir 100 UNT/ML Prefilled Syringe [Levemir] 30 unit, SUB-Q, Bedtime, # 3 ml, 0 Refill(s) Active 02/26/2015 [facility] spironolactone 50 mg oral tablet 25 mg=0.5 tab, PO, BID, # 60 tab, 0 Refill(s) Active 02/26/2015 [facility] atorvastatin 20 mg oral tablet 20 mg=1 tab, PO, Bedtime, # 30 tab, 0 Refill(s) Active 02/26/2015 [facility] baclofen 10 mg oral tablet 10 mg=1 tab, PO, BID, # 90 tab, 0 Refill(s) Active 02/26/2015 [facility] Ranitidine 150 MG Oral Tablet 150 mg=1 tab, PO, Daily, # 60 tab, 0 Refill(s) Active 02/26/2015 [facility] levothyroxine 137 mcg (0.137 mg) oral tablet 137 microgram=1 tab, PO, Daily, # 30 tab, 0 Refill(s) Active 02/26/2015 [facility] Metformin hydrochloride 1000 MG Oral Tablet 1,000 mg=1 tab, PO, BID, # 30 tab, 0 Refill(s) Active 02/26/2015 [facility] losartan 50 mg oral tablet 50 mg=1 tab, PO, Daily, # 30 tab, 0 Refill(s) Active 02/26/2015 [facility] tramadol hydrochloride 50 MG Oral Tablet 50 mg=1 tab, PO, Q6H, PRN Pain, # 40 tab, 0 Refill(s) Active 02/26/2015 [facility] tramadol hydrochloride 50 MG Oral Tablet [Ultram] 1 - 2 tabs, PO, Q4-6H, as needed for pain, # 20 tab, 0 Refill(s) Active 02/07/2014 [facility] Mupirocin 0.02 MG/MG Topical Ointment [Bactroban] 1 appl, TOP, TID, # 15 gm, 0 Refill(s) Active 02/07/2014 [facility] Sulfamethoxazole 800 MG / Trimethoprim 160 MG Oral Tablet [Bactrim] 1 tab, PO, BID, # 20 tab, 0 Refill(s) Active 02/07/2014 [facility] Lidocaine Hydrochloride 10 MG/ML Injectable Solution 10 ml, Route: SUB-Q, Drug Form: INJ, Dosing Weight 81.818, kg, ONCE, STAT, Start date: 02/07/14 16:28:00, Stop date: 02/07/14 16:28:00Preservative free. (Same as: Xylocaine MPF) Inactive 02/07/2014 [facility] Levemir 10 unit, 0.1 mL, Route: SUB-Q, Drug form: INJ, QAM, Dosing Weight 88.636, kg, Start date: 08/04/12 9:00:00, Duration: 30 day, Stop date: 09/02/12 9:00:00 SUB-Q No Longer Active [place] 08/04/2012 [facility] levothyroxine 125 microgram, 1 tab, Route: PO, Drug form: TAB, Q630AM, Dosing Weight 88.636, kg, Start date: 08/04/12 6:30:00, Duration: 30 day, Stop date: 09/02/12 6:30:00 PO No Longer Active [facility] 08/04/2012 [facility] Levemir 15 unit, 0.15 mL, Route: SUB-Q, Drug form: INJ, QPM, Dosing Weight 88.636, kg, Start date: 08/03/12 17:00:00, Duration: 30 day, Stop date: 09/01/12 17:00:00 SUB-Q No Longer Active [facility] 08/03/2012 [facility] Vicodin 5/500 oral tablet 1 tab, PO, Q4H, PRN, 40 btl, for pain, Substitution Allowed, Maintenance, TAB PO Active Voloyiannis 08/03/2012 [facility] losartan 25 mg, 1 tab, Route: PO, Drug form: TAB, Daily, Dosing Weight 88.636, kg, Start date: 08/02/12 11:00:00, Duration: 30 day, Stop date: 09/01/12 9:00:00 PO No Longer Active [place] 08/02/2012 [facility] Dilaudid 1 mg, 1 mL, Route: IV, Drug form: SOLN, Q1H, Dosing Weight 88.636, kg, PRN as needed for pain, Start date: 08/02/12 9:04:00, Duration: 30 day, Stop date: 09/01/12 9:03:00 IV No Longer Active Voloyiannis 08/02/2012 [facility] [place] 5/325 oral tablet 1 tab, Route: PO, Drug Form: TAB, Dosing Weight 88.636, kg, Q4H, PRN Pain, Start date: 08/02/12 9:03:00, Duration: 30 day, Stop date: 09/01/12 9:02:00 PO No Longer Active Voloyiannis 08/02/2012 [facility] Levemir 10 unit, 0.1 mL, Route: SUB-Q, Drug form: INJ, Q12H, Dosing Weight 88.636, kg, Start date: 08/02/12 9:00:00, Duration: 30 day, Stop date: 08/31/12 21:00:00 SUB-Q No Longer Active [place] 08/02/2012 [facility] acetaminophen-hydrocodone 325 mg-5 mg oral tablet 1 tab, Route: PO, Drug Form: TAB, Q4H, PRN Pain, Start date: 08/01/12 19:19:00, Duration: 30 day, Stop date: 08/31/12 19:18:00 PO No Longer Active Voloyiannis 08/02/2012 [facility] Dextrose 50% in Water IV 50 mL, Route: IVP, Start date: 08/01/12 10:27:00, Duration: 30 day, Stop date: 08/31/12 10:26:00, PRN Blood Glucose Results IVP No Longer Active [facility] 08/01/2012 [facility] glucagon 1 mg, Route: IM, Drug form: PDR/INJ, PRN, PRN Blood Glucose Results, Start date: 08/01/12 10:27:00, Duration: 30 day, Stop date: 08/31/12 10:26:00 IM No Longer Active [facility] 08/01/2012 [facility] NovoLog FlexPen 12 unit, 0.12 mL, Route: SUB-Q, Drug form: SOLN, Before Meals & Bedtime, PRN Blood Glucose Results, Start date: 08/01/12 10:27:00, Duration: 30 day, Stop date: 08/31/12 10:26:00 SUB-Q No Longer Active [facility] 08/01/2012 [facility] NovoLog FlexPen 8 unit, 0.08 mL, Route: SUB-Q, Drug form: SOLN, Before Meals & Bedtime, PRN Blood Glucose Results, Start date: 08/01/12 10:26:00, Duration: 30 day, Stop date: 08/31/12 10:25:00 SUB-Q No Longer Active [place] 08/01/2012 [facility] Entereg 12 mg, 1 cap, Route: PO, Drug form: CAP, BID, Dosing Weight 88.636, kg, Start date: 08/01/12 9:00:00, Duration: 14 doses or times, Stop date: 08/07/12 17:00:00 [facility]2012 [facility] Lovenox 40 mg, 0.4 mL, Route: SUB-Q, Drug form: INJ, [id number], Dosing Weight 88.636, kg, Start date: 08/01/12 3:00:00, Duration: 30 day, Stop date: 08/30/12 3:00:00 SUB-Q [facility] famotidine 20 mg, 2 mL, Route: IVP, Drug form: INJ, Q12H, Dosing Weight 88.636, kg, Start date: 07/31/12 21:00:00, Duration: 30 day, Stop date: 08/30/12 9:00:00 IVP No Longer Active Go 08/01/2012 [facility] Lactated Ringers Injection IV 1000 mL 1,000 mL, Rate: 50 ml/hr, Infuse over: 20 hr, Route: IV, Dosing Weight 88.636 kg, Total Volume: 1,000, Start date: 07/31/12 15:17:00, Duration: 30 day, Stop date: 08/30/12 15:16:00 IV No Longer Active So 07/31/2012 [facility] naloxone 0.04 mg, Route: IVP, Q2MIN, Dosing Weight 88.636, kg, PRN Narcotic Reversal, Start date: 07/31/12 15:17:00, Duration: 8 doses or times, Stop date: Limited # of times IVP No Longer Active So 07/31/2012 [facility] flumazenil 0.2 mg, 2 mL, Route: IVP, Drug form: INJ, PRN, Dosing Weight 88.636, kg, PRN Benzodiazepine Reversal, Initial dose, Start date: 07/31/12 15:17:00, Duration: 30 day, Stop date: 08/30/12 15:16:00 IVP No Longer Active [facility] 07/31/2012 [facility] hydrALAZINE 5 mg, 0.25 mL, Route: IVP, Drug form: INJ, Q5Min, Dosing Weight 88.636, kg, PRN Elevated BP, Start date: 07/31/12 15:17:00, Duration: 4 doses or times, Stop date: Limited # of times IVP No Longer Active [facility] 07/31/2012 [facility] labetalol 5 mg, 1 mL, Route: IVP, Drug form: INJ, Q5Min, Dosing Weight 88.636, kg, PRN Elevated BP, Start date: 07/31/12 15:17:00, Duration: 5 doses or times, Stop date: Limited # of times IVP No Longer Active [facility] 07/31/2012 [facility] ondansetron 4 mg, Route: IVP, ONCE, Dosing Weight 88.636, kg, PRN Nausea & Vomiting, Start date: 07/31/12 15:17:00 IVP No Longer Active So 07/31/2012 [facility] Dextrose 50% Syringe 12.5 gm, 25 mL, Route: IVP, Drug Form: INJ, Dosing Weight 88.636, kg, PRN, PRN Blood Glucose Results, Start date: 07/31/12 15:14:00, Duration: 30 day, Stop date: 08/30/12 15:13:00 IVP No Longer Active [facility] 07/31/2012 [facility] glucagon 1 mg, Route: IM, Drug form: PDR/INJ, PRN, Dosing Weight 88.636, kg, PRN Blood Glucose Results, Start date: 07/31/12 15:14:00, Duration: 30 day, Stop date: 08/30/12 15:13:00 IM No Longer Active [facility] 07/31/2012 [facility] NS + KCL 20mEq/L 1000ml (Premix) 1000 mL 1,000 mL, Rate: 60 ml/hr, Infuse over: 16.7 hr, Route: IV, Dosing Weight 88.636 kg, Total Volume: 1,000, Start date: 07/31/12 15:10:00, Duration: 30 day, Stop date: 08/30/12 15:09:00 [facility] insulin aspart 2 unit, 0.02 mL, Route: SUB-Q, Drug form: SOLN, TID-Before Meals, Dosing Weight 88.636, kg, PRN Blood Glucose Results, Start date: 07/31/12 15:10:00, Duration: 30 day, Stop date: 08/30/12 15:09:00 SUB-Q No Longer Active [facility] 07/31/2012 [facility] hydromorphone 0.2 mg/mL MILITARY ANALYST (6 mg/30 mL) INJ Syringe 6 mg 6 mg, 30 mL, Route: IV, MILITARY ANALYST Dose: 0.2 mg, MILITARY ANALYST Lockout: 10 minutes, Continuous Basal Rate: 0 mg, 4 Hour Limit (In MG): 6, Drug Form: INJ, Continuous, Pain, Start date: 07/31/12 15:10:00, Duration: 30 day, Stop date: 08/30/12 15:09:00 IV No Longer Active [facility]irvin 07/31/2012 [facility] nalbuphine 2 mg, 0.1 mL, Route: IVP, Drug form: INJ, Q2H, Dosing Weight 88.636, kg, PRN Itching, Start date: 07/31/12 15:10:00, Duration: 5 doses or times, Stop date: Limited # of times IVP No Longer Active [facility] 07/31/2012 [facility] naloxone 0.04 mg, 0.04 mL, Route: IVP, Drug form: INJ, Q2MIN, Dosing Weight 88.636, kg, PRN Narcotic Reversal, Start date: 07/31/12 15:10:00, Duration: 30 day, Stop date: 08/30/12 15:09:00 IVP No Longer Active [facility] 07/31/2012 [facility] ondansetron 4 mg, 2 mL, Route: IVP, Drug form: INJ, Q6H, Dosing Weight 88.636, kg, PRN Nausea & Vomiting, Start date: 07/31/12 15:10:00, Duration: 30 day, Stop date: 08/30/12 15:09:00 IVP No Longer Active [facility] 07/31/2012 [facility] diphenhydrAMINE 25 mg, 1 tab, Route: PO, Drug form: TAB, Bedtime, Dosing Weight 88.636, kg, PRN Insomnia, Start date: 07/31/12 15:10:00, Duration: 30 day, Stop date: 08/30/12 15:09:00 PO No Longer Active [facility] 07/31/2012 [facility] acetaminophen 650 mg, 2 tab, Route: PO, Drug form: TAB, Q4H, Dosing Weight 88.636, kg, PRN Pain Score 1-3, Start date: 07/31/12 15:10:00, Duration: 30 day, Stop date: 08/30/12 15:09:00 PO No Longer Active [facility] 07/31/2012 [facility] Entereg 12 mg, 1 cap, Route: PO, Drug form: CAP, ONCALL, Dosing Weight 88.636, kg, Start date: 07/31/12 11:00:00 PO No Longer Active [facility] 07/31/2012 [facility] Entereg 12 mg, 1 cap, Route: PO, Drug form: CAP, ONCE, Start date: 07/31/12 11:00:00, Stop date: 07/31/12 11:00:00 PO No Longer Active [facility] 07/31/2012 [facility] Invanz 1 gm, Route: IVPB, ONCE, Dosing Weight 88.636, kg, Start date: 07/31/12 10:47:00, Stop date: 07/31/12 10:47:00 IVPB No Longer Active [facility] 07/31/2012 [facility] Lactated Ringers Injection IV 1,000 mL 1,000 mL, Rate: 25 ml/hr, Infuse over: 40 hr, Route: IV, kg, Total Volume: 1,000, Start date: 07/31/12 10:46:00, Duration: 30 day, Stop date: 08/30/12 10:45:00 IV No Longer Active So 07/31/2012 [facility] lovastatin Substitution Allowed Active 07/28/2012 [facility] Sodium Chloride 0.45% IV 1,000 mL 1,000 mL, Rate: 40 ml/hr, Infuse over: 25 hr, Route: IV, Dosing Weight 85.455 kg, Total Volume: 1,000, Start date: 05/22/12 10:56:00, Duration: 30 day, Stop date: 06/21/12 10:55:00 IV No Longer Active [facility] 05/22/2012 [facility] aspirin 325 mg tablet 325 mg, 1 tab, PO, Daily, 30 tab, Substitution Allowed, TAB PO Active 05/22/2012 [facility] ranitidine 150 mg oral tablet 150 mg, 1 tab, PO, Daily, 60 tab, Substitution Allowed PO Active 05/20/2012 [facility] losartan 50 mg oral tablet 50 mg, 1 tab, PO, Daily, 30 tab, Substitution Allowed, TAB PO Active 05/20/2012 [facility] spironolactone 25 mg oral tablet 25 mg, 1 tab, PO, Daily, 180 tab, Substitution Allowed, TAB PO Active 05/20/2012 [facility] levothyroxine 125 mcg (0.125 mg) oral tablet 125 microgram, 1 tab, PO, Daily, 30 tab, Substitution Allowed, TAB PO Active 05/20/2012 [facility] gabapentin 300 mg oral capsule 300 mg, 1 cap, PO, BID, 90 cap, Substitution Allowed PO Active 05/20/2012 [facility] metFORmin 1000 mg oral tablet 1,000 mg, 1 tab, PO, BID, 30 tab, Substitution Allowed PO Active 05/20/2012 [facility] NovoLog 100 units/mL subcutaneous solution 40 unit, SUB- Q, TID-Before Meals, 10 ml, Substitution Allowed, SOLN SUB- Q Active 05/20/2012 [facility] Levemir 100 units/mL subcutaneous solution 80 unit, SUB- Q, BID, 10 ml, Substitution Allowed, SOLN SUB-Q Active 05/20/2012 [facility] albuterol CFC free 90 mcg/inh inhalation aerosol with adapter 2 puff, INHALATION, QID, PRN, 17 gm, Wheezing, Substitution Allowed, Maintenance, AERO INHALATION Active [facility] 03/07/2012 [facility] Azithromycin 5 Day Dose Pack 250 mg oral tablet See Instructions, 1 pkg, Substitution Allowed, as directed on package labelingas directed on package labeling Active [facility] 03/07/2012 [facility] Rocephin 1 g/ NS (NaCl 0.9%) 50 mL IV solution 1 gm, Route: IVPB, Drug form: PDR/INJ, ONCE, Priority: STAT, Start date: 03/06/12 18:33:00, Stop date: 03/06/12 18:33:00 IVPB No Longer Active [facility] 03/06/2012 [facility] acetaminophen 650 mg, 20.3 mL, Route: PO, Drug form: LIQ, ONCE, Priority: STAT, Start date: 03/06/12 15:59:00, Stop date: 03/06/12 15:59:00 PO No Longer Active [facility] 03/06/2012 [facility] Sodium Chloride 0.9% (Bolus) IV 500 mL 500 mL, Rate: 1,000 ml/hr, Infuse over: 0.5 hr, Route: IV, Dosing Weight 104.5 kg, Total Volume: 500, Priority: STAT, Start date: 03/06/12 15:32:00, Duration: 1 doses or times, Stop date: 03/06/12 16:01:00, Bolus DoseBolus Dose IV No Longer Active [facility] 03/06/2012 [facility] Insulin regular 10 unit, 0.1 mL, Route: IVP, Drug form: INJ, ONCE, Priority: STAT, Start date: 04/16/12 15:30:00, Stop date: 03/06/12 15:30:00 IVP No Longer Active [facility] 03/06/2012 [facility] Allergies, Adverse Reactions, Alerts Substance Category Reaction Severity Reaction type Status Date Reported Comments Source Immunizations Immunization Date Given Site Status Last Updated Comments Source pneumococcal 13-valent vaccine<sup>1</sup> 12/27/2017 Left Deltoid completed [facility] Result Comment: Patient waited 15 minutes, no reaction noted. Medical [facility] influenza virus vaccine, inactivated<sup>2</sup> 09/26/2017 Left Deltoid completed [facility] Result Comment: Patient waited 15 minutes, no reaction noted. Medical [facility] influenza virus vaccine, inactivated 09/05/2015 Left deltoid completed [facility], [facility]<sup>1</sup> 08/16/2014 Right Deltoid completed [facility] Result Comment: fluzone high dose [[id number]]. Migrated from OBS ; Data migrated from [employer] on 12/23/2015. CARL Yun influenza virus vaccine, inactivated<sup>3</sup> 08/16/2014 Right Deltoid completed [facility] Result Comment: fluzone high dose [[id number]]. Migrated from OBS ; Data migrated from [employer] on 12/23/2015. Medical [facility] tetanus-diphtheria toxoids 02/07/2014 Right deltoid completed [facility] tetanus-diphtheria toxoids 02/07/2014 Right deltoid completed [facility], CARL Yun pneumococcal 23-valent vaccine<sup>2</sup> 09/20/2013 Right Deltoid completed [facility] Result Comment: pneumovax 23 [[id number]]. Migrated from OBS VIS: Pneumovax 23: 08-26-09 ; Data migrated from [employer] on 12/23/2015. CARL Yun pneumococcal 23-valent vaccine<sup>4</sup> 09/20/2013 Right Deltoid completed [facility] Result Comment: pneumovax 23 [[id number]]. Migrated from OBS VIS: Pneumovax 23: 08-26-09 ; Data migrated from [employer] on 12/23/2015. [facility] Results Order Name Results Value Reference Range Date Interpretation Comments Source Bone Density DXA [employer] MA Bone Density DXA Dual [employer] MA - Bone Density DXA [employer] MA BONE DENSITY EVALUATION: 06/20/2017 CLINICAL DATA: Post menopausal. RISK FACTORS: . COMPARISON: 12/15/2015 Right hip using a Hologic unit from [facility] with reported normal fracture risk, BMD of 1.062g/cm2, T-score of 1.00 and Z-score of 2.40. 12/15/2015 Left hip using a Hologic unit from [facility] with reported normal fracture risk, BMD of 1.021g/cm2, T-score of 0.60 and Z-score of 2.10. 12/15/2015 AP L1-L3 region of spine using a Hologic unit from [facility] with reported normal fracture risk, BMD of [...] services are provided by the [facility]. This exam was dictated and interpreted by [address] [place] [address] Dr. Wayne José M.D. eoc/:06/21/2017 09:15:57 Family Services Worker: Ladan CASTANON(Jm)(Kathleen), [facility] 06/20/2017 - - Read by: Wayne José MD Dictated Date/time: 06/21/17 09:15 Electronically Signed by: Wayne José MD 06/21/17 09:15 FINAL REPORT [facility] Breast Mammo Scrn DARIUSZ incl CAD MA Breast Mammo Scrn DARIUSZ incl CAD MA - BREAST MAMMO SCRN DARIUSZ INCL CAD MA BILATERAL DIGITAL SCREENING MAMMOGRAM WITH CAD: 06/20/2017 CLINICAL: Encounter For Screening Mammogram For Malignant Neoplasm Of Breast/Z12.31. Current study was evaluated with a Computer Aided Detection (CAD) system. Comparison is made to exams dated: 02/16/2013 mammogram, 01/29/2011 mammogram - [facility] and 09/12/2007 mammogram. The tissue of both breasts is almost entirely fat. There are benign calcifications in both breasts. No significant masses, calcifications, or other findings are seen in either breast. There has been no significant interval change. IMPRESSION: BENIGN There is no mammographic evidence of malignancy. A 1 year screening mammogram is recommended. Professional services are provided by the [facility]. Mirna Quick M.D. ks/penrad:06/21/2017 08:42:04 Family Services Worker: Fabiola Urbina RT(R)(M), [facility] This exam was dictated and interpreted by [address] [place] [id number]. letter sent: Normal exam Mammogram BI-RADS: 2 Benign 06/20/2017 - - Read by: Mirna Quick MD Dictated Date/time: 06/21/17 08:42 Electronically Signed [...] This exam was dictated and interpreted by [id number] for JEANNETTE Yun. Ayaz Johnson M.D., cm/dona:12/15/2015 15:29:11 Family Services Worker: Fabiola QURESHI (R)), [facility] 12/15/2015 - - Read by: Wilson Ross [...] CO2 28 meq/L 24 - 32 02/26/2015 [facility] CHEM PANEL Chloride Lvl 104 meq/L 95 - 109 02/26/2015 [facility] CHEM PANEL Calcium Lvl 9.0 mg/dL 8.5 - 10.5 02/26/2015 [facility] CHEM PANEL AGAP 9.8 meq/L 10.0 - 20.0 02/26/2015 [facility] CHEM PANEL Glucose Lvl 137 mg/dL 70 - 99 02/26/2015 2Interpretive Data: Adult reference range values reflect the clinical guidelines of the [employer] [employer]. [facility] CHEM PANEL BUN 25 mg/dL 7 - 22 02/26/2015 [facility] CHEM PANEL Creatinine Lvl 1.4 mg/dL 0.5 - 1.4 02/26/2015 [facility] CHEM PANEL Sodium Lvl 137 meq/L 135 - 145 02/26/2015 [facility] CHEM PANEL Potassium Lvl 4.8 meq/L 3.5 - 5.1 02/26/2015 [facility] Abdomen w/wo IV contrast CT Abdomen [...] SL: 14 01/30/2015 - - Read by: Nteo Nj MD Dictated Date/time: 01/30/15 13:52 Electronically Signed by: Neto Nj MD 01/30/15 13:59 FINAL REPORT [facility] Chest w contrast CT Chest w [...] Bo Zamudio MD 01/29/14 16:54 FINAL REPORT [facility] BEDSIDE GLUCOSE TESTING Glucose POC 181 mg/dL 70 - 99 11/30/2013 [place] 1Interpretive Data: Upper Reportable Limit: 200 mg/dL. [facility] BEDSIDE GLUCOSE TESTING Gluc POC Lifscn 237 mg/dL 70 - 99 08/03/2012 [place] 1Interpretive Data: Upper Reportable Limit: 200 mg/dL. [facility] BEDSIDE GLUCOSE TESTING Comment1 Assess patient 08/03/2012 NA [facility] BEDSIDE GLUCOSE TESTING Comment1 Assess patient 08/03/2012 NA [facility] BEDSIDE GLUCOSE TESTING Gluc POC Lifscn 228 mg/dL 70 - 99 08/03/2012 [place] 2Interpretive Data: Upper Reportable Limit: 200 mg/dL. [facility] BEDSIDE GLUCOSE TESTING Gluc POC Lifscn 178 mg/dL 70 - 99 08/03/2012 [place] 3Interpretive Data: Upper Reportable Limit: 200 mg/dL. [facility] BEDSIDE GLUCOSE TESTING Comment1 Notify CHRISTINA/ 08/02/2012 NA [facility] CHEMISTRY Magnesium Lvl 1.1 mg/dL 1.8 - 2.4 08/01/2012 LOW [facility] CHEMISTRY CO2 25 meq/L 24 - 32 08/01/2012 Normal [facility] CHEMISTRY Chloride Lvl 102 meq/L 95 - 109 08/01/2012 Normal [facility] CHEMISTRY Creatinine Lvl 0.8 mg/dL 0.5 - 1.4 08/01/2012 Normal [facility] CHEMISTRY Potassium Lvl 4.7 meq/L 3.5 - 5.1 08/01/2012 Normal [facility] CHEMISTRY Sodium Lvl 137 meq/L 135 - 145 08/01/2012 Normal [facility] CHEMISTRY Calcium Lvl 8.1 mg/dL 8.5 - 10.5 08/01/2012 LOW [facility] CHEMISTRY AGAP 14.7 meq/L 10.0 - 20.0 08/01/2012 Normal [facility] CHEMISTRY Glucose Lvl 219 mg/dL 70 - 99 08/01/2012 [place] 4Interpretive Data: Adult reference range values reflect the clinical guidelines of the [employer] [employer]. [facility] CHEMISTRY BUN 11 mg/dL 7 - 22 08/01/2012 Normal [facility] CHEMISTRY Phosphorus 2.8 mg/dL 2.5 - 4.5 08/01/2012 Normal [facility] HEMATOLOGY Hgb 9.9 g/dL 12.0 - 16.0 08/01/2012 LOW [facility] HEMATOLOGY Hct 29.7 % 36.0 - 48.0 08/01/2012 LOW [facility] BLOOD BANK RESULTS Antibody Scrn Negative (07/28/2012 09:30:00) 07/28/2012 Normal [facility] BLOOD BANK RESULTS ABO/Rh B NEG 07/28/2012 Unknown [facility] CHEMISTRY AGAP 16.6 meq/L 10.0 - 20.0 07/28/2012 Normal [facility] CHEMISTRY B/C Ratio 18 6 - 25 07/28/2012 Normal [facility] CHEMISTRY Globulin 3.1 g/dL 2.0 - 4.0 07/28/2012 Normal [facility] CHEMISTRY A/G Ratio 1.3 0.7 - 1.6 07/28/2012 Normal [facility] CHEMISTRY Calcium Lvl 9.0 mg/dL 8.5 - 10.5 07/28/2012 Normal [facility] CHEMISTRY CO2 23 meq/L 24 - 32 07/28/2012 LOW [facility] CHEMISTRY Albumin Lvl 3.9 g/dL 3.5 - 5.0 07/28/2012 Normal [facility] CHEMISTRY Potassium Lvl 4.6 meq/L 3.5 - 5.1 07/28/2012 Normal [facility] CHEMISTRY Sodium Lvl 137 meq/L 135 - 145 07/28/2012 Normal [facility] CHEMISTRY Chloride Lvl 102 meq/L 95 - 109 07/28/2012 Normal [facility] CHEMISTRY BUN 14 mg/dL 7 - 22 07/28/2012 Normal [facility] CHEMISTRY Creatinine Lvl 0.8 mg/dL 0.5 - 1.4 07/28/2012 Normal [facility] CHEMISTRY Glucose Lvl 195 mg/dL 70 - 99 07/28/2012 [place] 5Interpretive Data: Adult reference range values reflect the clinical guidelines of the [employer] [employer]. [facility] CHEMISTRY Total Protein 7.0 g/dL 6.4 - 8.4 07/28/2012 Normal [facility] CHEMISTRY AST 12 unit/L 0 - 37 07/28/2012 Normal [facility] CHEMISTRY ALT 21 unit/L 0 - 65 07/28/2012 Normal [facility] CHEMISTRY Alk Phos 67 unit/L 39 - 136 07/28/2012 Normal [facility] CHEMISTRY Bili Total 0.3 mg/dL 0.2 - 1.3 07/28/2012 Normal [facility] HEMATOLOGY PT 13.9 s 12.0 - 14.7 07/28/2012 Normal [facility] HEMATOLOGY INR 1.05 0.85 - 1.17 07/28/2012 Normal 6Interpretive Data: RECOMMENDED RANGES FOR PROTIME INR: 2.0-3.0 for most medical and surgical thromboembolic states. 2.5-3.5 for artificial heart valves and recurrent embolism. INR SHOULD BE USED ONLY FOR PATIENTS ON STABLE ANTICOAGULANT THERAPY. [facility] HEMATOLOGY PTT 30.6 s 22.9 - 35.8 07/28/2012 Normal 7Interpretive Data: Heparin Therapeutic Range: 57 - 92 Seconds [facility] MCH 29.2 pg 27.0 - 31.0 07/28/2012 Normal [facility] Hct 34.7 % 36.0 - 48.0 07/28/2012 LOW [facility] MCV 89.4 fL 81.0 - 99.0 07/28/2012 Normal [facility] HEMATOLOGY RBC 3.88 M/CMM 4.20 - 5.40 07/28/2012 LOW [facility] Hgb 11.3 g/dL 12.0 - 16.0 07/28/2012 LOW [facility] MCHC 32.6 g/dL 32.0 - 36.0 07/28/2012 Normal [facility] HEMATOLOGY Platelet 207 K/CMM 133 - 450 07/28/2012 Normal [facility] HEMATOLOGY RDW 15.4 % 11.5 - 14.5 07/28/2012 HI [facility] HEMATOLOGY MPV 8.6 fL 7.4 - 10.4 07/28/2012 Normal [facility] HEMATOLOGY WBC 7.7 K/CMM 3.7 - 10.4 07/28/2012 Normal [facility] HEMATOLOGY Basophils # 0.0 K/CMM 0.0 - 0.2 07/28/2012 Normal [facility] HEMATOLOGY Eosinophils # 0.1 K/CMM 0.0 - 0.5 07/28/2012 Normal [facility] HEMATOLOGY Monocytes # 0.4 K/CMM 0.0 - 0.8 07/28/2012 Normal [facility] HEMATOLOGY Lymphocytes # 2.5 K/CMM 1.0 - 5.5 07/28/2012 Normal [facility] HEMATOLOGY Segs 61.0 % 45.0 - 75.0 07/28/2012 Normal [facility] HEMATOLOGY Segs-Bands # 4.7 K/CMM 1.5 - 8.1 07/28/2012 Normal [facility] HEMATOLOGY Eosinophils 1.9 % 0.0 - 4.0 07/28/2012 Normal [facility] HEMATOLOGY Basophils 0.2 % 0.0 - 1.0 07/28/2012 Normal [facility] HEMATOLOGY Lymphocytes 32.3 % 20.0 - 40.0 07/28/2012 Normal [facility] HEMATOLOGY Monocytes 4.6 % 2.0 - 12.0 07/28/2012 Normal [facility] URINALYSIS UA Urobilinogen <=1.0 mg/dL
*NA*
(07/28/2012 08:25:00) <sup> </sup> 0.1 - 1.0 07/28/2012 NA [facility] URINALYSIS UA Color Ltyellow 07/28/2012 NA [facility] URINALYSIS UA RBC null 0 - 2 07/28/2012 Normal [facility] URINALYSIS UA Bacteria Occasional /HPF *NA* (07/28/2012 08:25:00) None Seen 07/28/2012 [facility] URINALYSIS UA Blood Negative (07/28/2012 08:25:00) Negative 07/28/2012 Normal [facility] URINALYSIS UA Bili Negative *NA* (07/28/2012 08:25:00) Negative 07/28/2012 [facility] URINALYSIS UA WBC null 0 - 5 07/28/2012 Normal [facility] URINALYSIS UA Sq Epi Occasional /LPF *NA* (07/28/2012 08:25:00) Few 07/28/2012 [facility] URINALYSIS UA Leuk Est Negative (07/28/2012 08:25:00) Negative 07/28/2012 Normal [facility] URINALYSIS UA Nitrite Negative (07/28/2012 08:25:00) Negative 07/28/2012 Normal [facility] URINALYSIS UA Turbidity Clear (07/28/2012 08:25:00) [...] UA Spec Grav 1.008 <=1.030 07/28/2012 Normal [facility] BEDSIDE GLUCOSE TESTING Comment1 Notify CHRISTINA/ 03/06/2012 NA [facility] BEDSIDE GLUCOSE TESTING Gluc POC Lifscn 295 mg/dL 70 - 99 03/06/2012 [place] 1Interpretive Data: Upper Reportable Limit: 200 mg/dL. [facility] URINALYSIS UA Bili Negative (03/06/2012 15:40:00) Negative 03/06/2012 Normal [facility] URINALYSIS UA Sq Epi Moderate /LPF *ABN* (03/06/2012 15:40:00) Few 03/06/2012 ABN [facility] URINALYSIS UA WBC 0-2 /HPF (03/06/2012 15:40:00) None Seen 03/06/2012 Normal [facility] URINALYSIS UA Turbidity Clear (03/06/2012 15:40:00) [...] /HPF (03/06/2012 15:40:00) None Seen 03/06/2012 Normal [facility] URINALYSIS UA RBC None Seen (03/06/2012 15:40:00) 0 - 2 03/06/2012 Normal [facility] URINALYSIS UA Blood Negative (03/06/2012 15:40:00) Negative 03/06/2012 Normal [facility] URINALYSIS UA Urobilinogen 0.2 EU/dL 0.1 - 1.0 03/06/2012 Normal [facility] URINALYSIS UA Leuk Est Negative (03/06/2012 15:40:00) Negative 03/06/2012 Normal [facility] URINALYSIS UA Nitrite Negative (03/06/2012 15:40:00) Negative 03/06/2012 Normal [facility] URINALYSIS Micro? Performed (03/06/2012 15:40:00) 03/06/2012 Normal [facility] URINALYSIS UA Color Yellow *NA* (03/06/2012 15:40:00) Yellow 03/06/2012 NA [facility] Microbiology Culture: Urine 03/06/2012 [facility] CHEMISTRY Lipase Lvl 89 U/L 73 - 393 03/06/2012 Normal [facility] CHEMISTRY Amylase Lvl 34 U/L 25 - 115 03/06/2012 Normal [facility] CHEMISTRY A/G Ratio 1.1 0.7 - 1.6 03/06/2012 Normal [facility] CHEMISTRY Globulin 3.2 g/dL 2.0 - 4.0 03/06/2012 Normal [facility] CHEMISTRY B/C Ratio 14 6 - 25 03/06/2012 Normal [facility] CHEMISTRY AGAP 17.4 meq/L 10.0 - 20.0 03/06/2012 Normal [facility] CHEMISTRY AST 13 U/L 0 - 37 03/06/2012 Normal [facility] CHEMISTRY Bili Total 0.7 mg/dL 0.2 - 1.3 03/06/2012 Normal [facility] CHEMISTRY Alk Phos 53 U/L 39 - 136 03/06/2012 Normal [facility] CHEMISTRY ALT 22 U/L 0 - 65 03/06/2012 Normal [facility] CHEMISTRY Albumin Lvl 3.4 g/dL 3.5 - 5.0 03/06/2012 LOW [facility] CHEMISTRY Total Protein 6.6 g/dL 6.4 - 8.4 03/06/2012 Normal [facility] CHEMISTRY Calcium Lvl 8.4 mg/dL 8.5 - 10.5 03/06/2012 LOW [facility] CHEMISTRY CO2 20 meq/L 24 - 32 03/06/2012 LOW [facility] CHEMISTRY Chloride Lvl 101 meq/L 95 - 109 03/06/2012 Normal [facility] CHEMISTRY Potassium Lvl 4.4 meq/L 3.5 - 5.1 03/06/2012 Normal [facility] CHEMISTRY Sodium Lvl 134 meq/L 135 - 145 03/06/2012 LOW [facility] CHEMISTRY Creatinine Lvl 1.5 mg/dL 0.5 - 1.4 03/06/2012 [facility] CHEMISTRY BUN 21 mg/dL 7 - 22 03/06/2012 Normal [facility] CHEMISTRY Glucose Lvl 321 mg/dL 70 - 99 03/06/2012 [place] 2Interpretive Data: Adult reference range values reflect the clinical guidelinesof the [place] [employer]. [facility] HEMATOLOGY Monocytes # 1.3 K/CMM 0.0 - 0.8 03/06/2012 [facility] HEMATOLOGY Lymphocytes # 1.0 K/CMM 1.0 - 5.5 03/06/2012 Normal [facility] HEMATOLOGY Segs-Bands # 10.3 K/CMM 1.5 - 8.1 03/06/2012 [facility] HEMATOLOGY Lymphocytes 8.0 % 20.0 - 40.0 03/06/2012 LOW [facility] HEMATOLOGY Bands 11.0 % 0.0 - 11.0 03/06/2012 Normal [facility] HEMATOLOGY Monocytes 10.0 % 2.0 - 12.0 03/06/2012 Normal [facility] HEMATOLOGY Segs 71.0 % 45.0 - 75.0 03/06/2012 Normal [facility] HEMATOLOGY RBC Morph Normal (03/06/2012 13:13:00) 03/06/2012 Normal [facility] HEMATOLOGY Plt Morph Normal (03/06/2012 13:13:00) 03/06/2012 Normal [facility] HEMATOLOGY MCV 88.2 fL 81.0 - 99.0 03/06/2012 Normal [facility] HEMATOLOGY RBC 3.89 M/CMM 4.20 - 5.40 03/06/2012 LOW [facility] HEMATOLOGY WBC 12.6 K/CMM 3.7 - 10.4 03/06/2012 [facility] HEMATOLOGY Platelet 141 K/CMM 133 - 450 03/06/2012 Normal [facility] HEMATOLOGY RDW 14.6 % 11.5 - 14.5 03/06/2012 [facility] HEMATOLOGY MCHC 33.2 g/dL 32.0 - 36.0 03/06/2012 Normal [facility] HEMATOLOGY MCH 29.3 pg 27.0 - 31.0 03/06/2012 Normal [facility] HEMATOLOGY MPV 8.9 fL 7.4 - 10.4 03/06/2012 Normal [facility] HEMATOLOGY Hgb 11.4 g/dL 12.0 - 16.0 03/06/2012 LOW [facility] HEMATOLOGY Hct 34.3 % 36.0 - 48.0 03/06/2012 LOW [facility] Microbiology Culture: Blood 03/06/2012 [facility] Microbiology Culture: Blood 03/06/2012 [facility] Vital Signs Vital Sign Value Date [...] 12/27/2017 [facility] Group Respitory Rate 14 03/06/2015 [facility] Systolic (mm Hg) 125 03/06/2015 [facility] Diastolic (mm Hg) 98 03/06/2015 [facility] Respitory Rate 17 03/06/2015 [facility] Systolic (mm Hg) 127 03/06/2015 [facility] Diastolic (mm Hg) 98 03/06/2015 [facility] Respitory Rate 11 03/06/2015 [facility] Systolic (mm Hg) 110 03/06/2015 [facility] Diastolic (mm Hg) 50 03/06/2015 [facility] Heart Rate 60 02/26/2015 [facility] Temperature Oral (F) 98.1 F 02/26/2015 [facility] BMI Calculated 35.47 02/26/2015 [facility] Weight 82.386 02/26/2015 [facility] Height 152.4 cm 02/26/2015 [facility] Diastolic (mm Hg) 79 02/07/2014 [facility] Temperature Oral (F) 98.0 F 02/07/2014 [facility] Heart Rate 79 02/07/2014 [facility] Respitory Rate 18 02/07/2014 [facility] Systolic (mm Hg) 149 02/07/2014 [facility] Height 157.48 cm 02/07/2014 [facility] Weight 81.818 02/07/2014 [facility] BMI Calculated 32.99 02/07/2014 [facility] Respitory Rate 18 02/07/2014 [facility] Temperature Oral (F) 98.0 F 02/07/2014 [facility] Systolic (mm Hg) 147 02/07/2014 [facility] Diastolic (mm Hg) 67 02/07/2014 [facility] Heart Rate 93 02/07/2014 [facility] BMI Calculated 35.03 01/29/2014 [facility] Weight 84.091 01/29/2014 [facility] Height 154.94 cm 01/29/2014 [facility] Systolic (mm Hg) 126 11/30/2013 [facility] Respitory Rate 18 11/30/2013 [facility] Heart Rate 74 11/30/2013 [facility] Diastolic (mm Hg) 50 11/30/2013 [facility] Temperature Oral (F) 98.9 F 11/30/2013 [facility] Height 154.94 cm 11/30/2013 [facility] Weight 90.909 11/30/2013 [facility] Heart Rate 73 11/30/2013 [facility] Respitory Rate 16 11/30/2013 [facility] Diastolic (mm Hg) 77 11/30/2013 [facility] Temperature Oral (F) 98.3 F 11/30/2013 [facility] Systolic (mm Hg) 136 11/30/2013 [facility] Diastolic (mm Hg) 75 08/03/2012 [facility] Respitory Rate 16 08/03/2012 [facility] Heart Rate 74 08/03/2012 [facility] Temperature Oral (F) 98 F 08/03/2012 [facility] Systolic (mm Hg) 126 08/03/2012 [facility] Diastolic (mm Hg) 73 08/03/2012 [facility] Heart Rate 78 08/03/2012 [facility] Temperature Oral (F) 97.8 F 08/03/2012 [facility] Systolic (mm Hg) 131 08/03/2012 [facility] Respitory Rate 16 08/03/2012 [facility] Systolic (mm Hg) 145 08/03/2012 [facility] Heart Rate 74 08/03/2012 [facility] Diastolic (mm Hg) 74 08/03/2012 [facility] Respitory Rate 20 08/03/2012 [facility] Temperature Oral (F) 98.0 F 08/03/2012 [...] 05/22/2012 [facility] Systolic (mm Hg) 129 05/22/2012 [facility] Heart Rate 62 05/22/2012 [facility] Weight 85.455 05/19/2012 [facility] Height 157.48 cm 05/19/2012 [facility] Height 162.56 cm 03/06/2012 [facility] Weight 104.545 03/06/2012 [facility] Encounters Location Location Details Encounter Type Encounter Number Reason For Visit Attending Provider ADM Date DC Date Status Source [facility] Emergency [id number] ERIK NEHEMIAS 03/06/2012 03/06/2012 Active [facility] Outpatient [id number] PNEUMONIA STACIA NEWELL 03/17/2012 Active [facility] Outpatient [id number] ABD PAIN, CHEST PAIN, SHORTNESS OF BREATH CARLOS MALDONADO 04/01/2012 Active [facility] MEÑO [id number] LIDA FLOOD 05/22/2012 05/22/2012 Active [facility] Outpatient [id number] 794.31ABNORMAL EKG DR PULIDO WILL READ* JELLY PULIDO 07/25/2012 Active [facility] Inpatient [id number] CECAL MASS THEODOROS VOLOYIANNIS 07/31/2012 08/03/2012 Active [facility] Outpatient [id number] ROUTINE/MENOPAUSAL STACIA NEWELL 02/16/2013 02/16/2013 Active [facility] Emergency [id number] LOW SUGAR NADIM LATTER-DAY 11/30/2013 11/30/2013 Active [facility] Outpatient [id number] _MAPID:[id number] Stacia Newell 01/29/2014 01/30/2014 [facility] [id number] _MAPID:[id number] Darian Muñoz 02/07/2014 02/07/2014 [facility] Outpatient [id number] Salbador Carlos Alberto 01/30/2015 01/31/2015 [facility] Bedded Outpatient [id number] Salbador Carlos Alberto 03/06/2015 03/06/2015 [facility] Outpatient [id number] STACIA NEWELL 09/05/2015 Active [facility] Outpatient [id number] STACIA NEWELL 12/09/2015 Active [facility] [id number] Stacia Newell 12/15/2015 12/16/2015 [facility] [id number] STACIA NEWELL 01/07/2016 Active [facility] [id number] Stacia Newell 01/23/2016 01/24/2016 [facility] [id number] STACIA NEWELL 01/28/2016 Active [facility] Outpatient [id number] STACIA NEWELL 02/26/2016 Active [facility] Outpatient [id number] STACIA NEWELL 06/01/2016 Active [facility] Outpatient [id number] STACIA NEWELL 06/04/2016 Active [facility] Outpatient [id number] STACIA NEWELL 09/07/2016 Active [facility] [id number] Cristino So 06/20/2017 06/21/2017 [facility] [id number] FLAKITA KEITHH 09/26/2017 Active [facility] Outpatient [id number] FLAKITA KEITHH 12/27/2017 Active [facility] Outpatient [id number] Flakita Keithh 12/27/2017 12/28/2017 [facility] Outpatient [id number] FLAKITA KEITHH 03/28/2018 [facility] [id number] Stacia Newell 03/28/2018 03/29/[address] [facility] Phone Message [id number] 04/07/2018 04/09/2018 [facility] Group [facility] Phone Message [id number] 04/07/2018 04/09/[address] [facility] Primary [facility] Phone Message [phone] 04/24/2018 04/26/[address] [facility] Phone Message [phone] 04/27/2018 04/29/2018 [facility] Phone Message [phone] 05/01/2018 05/03/2018 [facility] Outpatient [id number] FLAKITA KEITHH 07/04/2018 Active [facility] Outpatient [id number] FLAKITA KEITHH 09/06/2018 Active [facility] Outpatient [id number] FLAKITA KEITHH 10/04/2018 Active [facility] [facility] Out[facility] [id number] [facility] 01/03/2019 Active [facility] Outpatient [id number] V76.10 STACIA NEWELL Active [facility] Procedures Procedure Code Date Perfomer Comments Source Diabetic retinopathy screening [id number] 06/21/2017 [facility] Diabetic retinopathy screening<sup>1</sup> [id number] 06/21/2017 reportedly no retinopathy, left cataract [facility] Colonoscopy<sup>1</sup> [id number] 03/06/2015 Normal colon [facility] [place] Colonoscopy<sup>2</sup> [id number] 03/06/2015 Normal colon [facility] Incision and drainage of abscess of back [id number] 02/07/2014 [facility] [place] Incision and drainage of abscess of back [id number] 02/07/2014 [facility] Laparoscopic sigmoid colectomy [id number] 11/21/2012 [facility] [place] Laparoscopic sigmoid colectomy [id number] 11/21/2012 [facility] Laparoscopic sigmoid colectomy [id number] 11/21/2012 [facility] Esophagogastroduodenoscopy [id number] 05/22/2012 [facility] Esophagogastroduodenoscopy [id number] 05/22/2012 [facility] Laparoscopic cholecystectomy [id number] 11/21/2002 [facility] Laparoscopic cholecystectomy [id number] 11/21/2002 [facility] Laparoscopic cholecystectomy [id number] 11/21/2002 [facility] Incision AND drainage [id number] [facility]
[2018-10-17 11:30] VITALS: BP 129/76
== END | disposition home or self-care (01) ==
LOC: OR 08:26
PROVIDERS: ATTEND Ophthalmology
DX: H25.11 Age-related nuclear cataract, right eye (principal); E11.9 Type 2 diabetes mellitus without complications; I10 Essential (primary) hypertension; E78.5 Hyperlipidemia, unspecified; E66.01 Morbid (severe) obesity due to excess calories; N20.0 Calculus of kidney; Z79.82 Long term (current) use of aspirin; Z79.4 Long term (current) use of insulin
CPT/HCPCS: 36415; 66984; 82948; J2250; V2632